=== PATIENT | female | born 2000 | race Caucasian/White ===

== ENCOUNTER 2020-03-28 16:21 | Emergency (ER) | payer BC, SELFPAY ==
[2018-04-10 16:15] VITALS: BMI 26.7
[2020-03-28 16:23] VITALS: BP 142/82; PULSE 118; RESP 18; TEMP 35.8; O2SAT 99; BMI 31.1
--- NOTE | 2020-03-28 17:22 | ED.VIS.HA ---
History of Present Illness Chief Complaint: Headache Informant: Patient Onset: Days - 2 Context: Gradual Timing: Continuous Quality: Similar Prior Headaches Location: bifrontal Current Severity: Moderate Maximum Severity: Moderate Worsened by: light Relieved by: nothing. tried ibuprofen and Zoloft. Associated Symptoms: Nausea, Vomiting - once yesterday, Blurred Vision, Photophobia. Negative for: Fever, Sore Throat, Sinus Pressure, Numbness, Tingling, Visual Changes, Visual Loss Injury: - - none Narrative: Patient states has history of migraines, she does not get them very frequently but this is a particularly bad one that usually go away with [id number] medications but this 1 has not. She states she is prescribed Zoloft for anxiety. However she is using it inappropriately, using it to abort when she has anxiety. She states she used it last night and she became nauseated and had some blurred vision at one point and is suspicious it was due to the Zoloft but she was having this migraine during it. She is also on typical combination control pills. She denies any recent injury or illness. Prior similar symptoms: Yes - Past Medical History (1) Anxiety Status: Chronic (2) GERD (gastroesophageal reflux disease) Status: Chronic (3) Migraines Status: Chronic Past Medical History - Allergies and Home Meds Allergies/Adverse Reactions: Allergies amoxicillin Adverse Reaction (Verified 04/10/18 16:16) Unknown Penicillins Adverse Reaction (Verified 04/10/18 16:16) Unknown Primary Care Physician: Blaine Aguilar MD [Primary Care Provider] - Smoking Status: Never smoker Review of Systems General: Denies: Chills, Fever, Sweats Eyes: Reports: Blurred Vision - bilaterally - Intermittently. Denies: Visual changes - bilaterally, Diplopia ENT: Reports: - - No sinus congestion/pressure. Denies: Bilateral ear pain, Rhinorrhea, Sore throat Cardiovascular: Denies: Chest pain, Palpitations Respiratory: Denies: Dyspnea, Cough, Dyspnea on exertion Gastrointestinal: Reports: Nausea, Vomiting. Denies: Abdominal pain, Diarrhea, Melena, Hematochezia Genitourinary: Denies: Dysuria, Hematuria, Frequency Musculoskeletal: Denies: Back pain, Extremity Pain Skin: Denies: Rash, Wounds Neurological: Reports: Headache. Denies: Weakness, Numbness Physical Exam Vital Signs/Narrative: Vital Signs Temp Pulse Resp BP Pulse Ox 03/28/20 16:23 96.4 F L 118 H 18 142/82 H 99 Inital Vital Signs reviewed: Yes General: Well nourished, Well developed, - - Well-appearing, no distress Head: NC, AT. Negative for: Temporary Artery Tenderness Eyes: Perrl, EOMI - Minimal photophobia ENT: Moist mucous membranes, No rhinorrhea. Negative for: Nasal congestion, Sinus tenderness Neck: Supple, No Lymphadenopathy, No Meningismus Respiratory: No distress Skin: Normal color, No rash, No Trauma Neuro: Alert, Oriented x3, Cranial nerves II-XII grossly intact, Normal Strength, Normal Sensation, Normal DTR, Normal Gait. Negative for: Romberg Psychological: Normal affect, Normal Mood Diagnostic/Tx/Re-eval - Medical Decision Making Patient was treated with Toradol and Reglan and had significant improvement. We discussed the correct way to use Zoloft for anxiety, which is taking it daily. She was concerned she was having side effects from it. I reassured her these were more likely related to her migraine and less likely the medication. I recommend that she wait until she is completely free of this headache and other symptoms, and then start taking the medication daily, to ensure that she tolerates it, and she should follow-up with the doctor who prescribes it. ED Disposition - Plan for ED Patient: Disposition: Home or Assisted Living Diagnosis: Migraine headache Instructions: ED, Migraine (Classical) Referrals: Blaine Aguilar MD [Primary Care Provider] - As Needed
[2020-03-28] MEDS: Metoclopramide 10 MG/2 ML Vial IM (17:26)
[2020-03-28] MEDS: Ketorolac 60 MG/2 ML Vial IM (17:26)
[2020-03-28 18:17] VITALS: BP 139/89; PULSE 86; RESP 16; O2SAT 99
== END 2020-03-28 18:18 | disposition home or self-care (01) ==
PROVIDERS: Emergency Provider Emergency Medicine; PCP Pediatrics
DX: G43.909 Migraine, unspecified, not intractable, without status migrainosus (principal); F41.9 Anxiety disorder, unspecified
CPT/HCPCS: 96372; 99282

== ENCOUNTER 2020-11-21 10:09 | Emergency (ER) | payer OTHER, SELFPAY ==
[2020-11-21 10:10] VITALS: BP 103/72; PULSE 111; RESP 18; TEMP 36.3; O2SAT 96; BMI 29.4
--- NOTE | 2020-11-21 10:21 | EKG12_ITS ---
Test Reason : SOB Blood Pressure : / mmHG Vent. Rate : 089 BPM Atrial Rate : 089 BPM P-R Int : 122 ms QRS Dur : 074 ms QT Int : 340 ms P-R-T Axes : 050 056 033 degrees QTc Int : 413 ms Normal sinus rhythm Normal ECG Confirmed by HANK FIGUEREDO, ALEX ([id number]), publication editor LIZA RICHARDS ([id number]) on 11/26/2020 12:57:42 PM Referred By: Confirmed By:ALEX MCKINNEY MD
--- NOTE | 2020-11-21 10:22 | ED.VIS.DYS ---
HPI History of Present Illness Chief Complaint: Cold Sx Informant: patient Narrative Narrative: 19-year-old female presents to the emergency department stating that she does not feel well. Patient states that 2 days ago she woke up with fever. She developed rhinorrhea and cough. Cough is productive of a greenish colored sputum. She notes no vomiting or diarrhea, no earache. She does note a mild sore throat. She notes generalized body aches. She is not vaccinated against Covid. Patient states that today she tried to get up to go to work but felt like she may pass out. PFSH PFS Medical History Seasonal allergies Severe headache Shortness of breath Home Medications NK 11/21/20 [History Last Taken Unknown] Allergy/AdvReac Type Severity Reaction Status Date / Time amoxicillin AdvReac Unknown Verified 11/21/20 10:10 Penicillins AdvReac Unknown Verified 11/21/20 10:10 Social History Smoking Status: Current some day smoker tobacco type: e-cigarettes alcohol intake: never ROS ROS ED Constitutional Constitutional ED: Reports chills and fever(s); Denies weight loss Eyes Eyes: Denies change in vision or diplopia ENT ENT ED: Reports rhinorrhea and sore throat; Denies ear pain Cardiovascular Cardiovascular: Denies chest pain, orthopnea, palpitations or racing heartbeat Respiratory/Chest Respiratory/Chest: Reports cough, dyspnea, dyspnea on exertion and sputum; Denies orthopnea Gastrointestinal Gastrointestinal: Denies abdominal pain, diarrhea, nausea or vomiting Genitourinary Genitourinary ED: Denies dysuria, hematuria or urinary frequency Musculoskeletal Musculoskeletal: Reports myalgias; Denies arthralgias Integumentary Denies abscess or rash Neurologic Neurologic: Reports headache(s); Denies weakness Psychiatric Psychiatric: Denies anxiety, depression, suicidal ideation or suicidal thoughts Endocrine Endocrinology: Denies polydipsia, polyphagia or polyuria Allergic/Immunologic Allergic/Immunologic ED: Denies mouth swelling, tongue swelling or urticaria EXAM Physical Exam Const Vital Signs: 11/21/20 10:10 11/21/20 10:40 Temperature 97.3 F L Temperature Source Temporal Pulse Rate 111 H Respiratory Rate 18 Respiratory Effort Normal Non-Labored Respiratory Depth Normal Respiratory Pattern Normal Blood Pressure 103/72 Blood Pressure Mean 82 Pulse Ox 96 Oxygen Delivery Method Room Air Positive well nourished and well developed General Appearance ED: well developed HEENT Reports normocephalic, head/scalp atraumatic and moist mucous membranes Eyes PERRL and EOMs intact bilaterally Neck no lymphadenopathy, supple and no JVD Resp normal respiratory effort and clear to auscultation bilaterally Cardio regular rhythm and no murmurs Rate: tachycardic GI normal to inspection, nondistended, normoactive bowel sounds and non-tender Palpation: soft Back/Spine no CVA tenderness and normal ROM Extremity normal to inspection General Extremety ED: Negative for edema General Extremity: Negative for edema Neuro oriented x3 and CN's II-XII intact bilaterally Sensorium / Orientation: alert Motor Exam: strength 5/5 throughout Psych mental status grossly normal Mood & Affect: Negative for depressed or tearful Skin no rashes or lesions noted and no wounds MDM MDM MDM Narrative Medical decision making narrative: Patient's COVID-19 is positive. White count 6.8. Patient does not wish a chest x-ray because she states that she had one at urgent care and was told that it was normal. At this point patient's not hypoxic. I think she can be discharged home with supportive care. Lab Data Attestation: I reviewed the patient's lab results. Labs: Laboratory Results - last 24 hr 11/21/20 11/21/20 11/21/20 10:30 10:30 10:30 WBC 6.8 RBC 5.06 Hgb 14.7 Hct 45.6 MCV 90.1 MCH 29.1 MCHC 32.2 RDW Std Deviation 39.8 RDW Coeff of Pauline 12.1 Plt Count 244 MPV 9.8 Immature Gran % (Auto) 0.600 Neut % (Auto) 74.7 H Lymph % (Auto) 14.3 L Ballard % (Auto) 9.6 Eos % (Auto) 0.4 Baso % (Auto) 0.4 Absolute Neuts (auto) 5.1 Absolute Lymphs (auto) 0.98 Nucleated RBC % 0 Sodium 137 Potassium 4.1 Chloride 103 Carbon Dioxide 29.0 Anion Gap 5 BUN 9 Creatinine 0.68 Estim Creat Clear Calc 136.77 Est GFR (MDRD) Af Amer 139 Est GFR (MDRD) Non-Af 115 BUN/Creatinine Ratio 13.3 Glucose 104 Calcium 8.5 Total Bilirubin 0.30 AST 11 L ALT 20 Alkaline Phosphatase 69 Total Protein 7.5 Albumin 4.0 Globulin 3.5 Albumin/Globulin Ratio 1.1 Serum , Qual NEGATIVE EKG Initial EKG: Attestation: I personally reviewed and interpreted this EKG as follows: Comments: EKG is a normal sinus rhythm at a rate of 89 bpm. No concerning features of ACS or ectopy noted Discharge Plan Triage Chief Complaint: Cold Sx ED Provider: Marco Mercado Dx/Rx/DC Orders Clinical Impression: COVID-19, Acute dyspnea Instructions: Coronavirus Disease 2019 (COVID-19): Caring for Yourself or Others Prescriptions: No Action NK RF: 0 Primary Care Provider: Humza Hurd Referrals: Humza Hurd DO [Primary Care Provider] - As Needed Disposition Disposition: Home, Self Care
[2020-11-21] MEDS: Ketorolac 30 MG/ML Syringe IV (10:33)
[2020-11-21] MEDS: 0.9% Normal Saline 1,000 ML 1000 ML IV (10:33)
[2020-11-21 10:49] LABS: Absolute Lymphocyte Count 0.98 X10^3/uL (0.83-4.51); Absolute Neutrophil Count 5.1 X10^3/uL (2.0-7.7); Basophil# 0.03 X10^3/uL; Basophil% 0.4 % (0-1); Eosinophil# 0.03 X10^3/uL; Eosinophils% 0.4 % (0-5); Hematocrit 45.6 % (37-47); Hemoglobin 14.7 g/dL (12.0-15.0); Lymphocyte # 0.98 X10^3/ul (0.83-4.51); Lymphocyte % 14.3 % (19-41); Mean Corp Hgb Conc 32.2 g/dL (32-36); Mean Corpuscular Hgb 29.1 pg (27.0-32.0); Mean Corpuscular Volume 90.1 fL (81-99); Mean Platelet Vol. 9.8 fl (6.2-12.0); Monocyte# 0.66 X10^3/uL; Monocyte% 9.6 % (0-10); NRBC Flagged by Analyzer 0 % (0-5); Neutrophil % 74.7 % (47-70); Platelet Count 244 K/mm3 (150-450); RBC Distribution Width CV 12.1 % (11.6-14.6); RBC Distribution Width SD 39.8 fl (35.1-43.9); Red Blood Count 5.06 M/mm3 (4.2-5.4); White Blood Count 6.8 K/mm3 (4.4-11.0)
[2020-11-21 11:01] LABS: ALB/GLOB Ratio 1.1 RATIO (0.9-2.4); AST(SGOT) 11 U/L (15-37); Alanine Aminotransfer ALT/SGPT 20 U/L (13-56); Alkaline Phosphatase 69 U/L (45-117); Anion Gap 5 (5-15); BUN 9 mg/dL (7-18); BUN/Creat Ratio 13.3 RATIO (10-20); Calcium,Total 8.5 mg/dL (8.5-10.1); Chloride 103 mmol/L (98-107); Creatinine, Serum 0.68 mg/dL (0.55-1.02); EST Glomerular Filtration Rate 115 mL/min (>60); Est Glom Filt Rate - Afr Amer 139 mL/min (>60); Estimated Creatinine Clearance 136.77 ml/min; Globulin 3.5 g/dL (2.2-4.2); Glucose 104 mg/dL (74-106); Potassium 4.1 mmol/L (3.5-5.1); Protein, Total 7.5 g/dL (6.4-8.2); Sodium Level 137 mmol/L (136-145)
[2020-11-21 11:06] LABS: Internal QC Validated? YES +Cl - CLEAR BKGD; Pregnancy, Serum, hCG Quali. NEGATIVE Negative
== END 2020-11-21 11:28 | disposition home or self-care (01) ==
PROVIDERS: Emergency Provider Emergency Medicine; PCP Student in an Organized Health Care Education/Training Program
DX: U07.1 COVID-19 (principal); R06.00 Dyspnea, unspecified
CPT/HCPCS: 80053; 84703; 85025; 87426; 87804; 93005; 96374; 99284; J7030

== ENCOUNTER → 2020-12-27 13:55 | Outpatient (CLI) | payer OTHER, SELFPAY ==
[2020-12-27 15:20] LABS: Internal QC Validated? YES +Cl - CLEAR BKGD; Monotest Negative (Negative)
[2020-12-30 14:09] LABS: B. henselae IgG Negative titer (Neg:<1:320); B. henselae IgM Negative titer (Neg:<1:100); B. quintana IgG Negative titer (Neg:<1:320)
[2020-12-30 14:23] LABS: B. quintana IgM Negative titer (Neg:<1:100)
== END ==
PROVIDERS: PCP Student in an Organized Health Care Education/Training Program; Visit Provider Nurse Practitioner Family
DX: R59.0 Localized enlarged lymph nodes (principal)
CPT/HCPCS: 36415; 86308; 86611

== ENCOUNTER 2024-11-14 04:33 | Emergency (ER) | payer OTHER, SELFPAY ==
[2024-11-14 04:34] VITALS: BP 123/70; PULSE 97; RESP 16; TEMP 36.9; O2SAT 98; BMI 28.8
--- NOTE | 2024-11-14 04:52 | EX.ED.DYSGE1 ---
HPI History of Present Illness Chief Complaint: General Illness Informant: patient Narrative Narrative: Patient is a 23-year-old female who reports no clinically significant past medical history. She states that roughly 2 weeks ago she had bouts of loose stool/diarrhea and was diagnosed with a stomach virus. She states the symptoms lasted for 5 to 7 days and then resolved. She states ever since then however she has been having generalized fatigue/malaise. She states there has been no fever and that she been able to eat and drink normally. However she is concerned that she never recovered from the viral stomach infection and has been dehydrated as the main cause of her symptoms. Secondary to that she presents for evaluation [facility] Medical History Seasonal allergies Severe headache Shortness of breath Home Medications Medication Instructions Recorded Last Taken Type NK 11/21/20 Unknown History Allergy/AdvReac Type Severity Reaction Status Date / Time amoxicillin AdvReac Unknown Verified 11/14/24 04:34 Penicillins AdvReac Unknown Verified 11/14/24 04:34 Family History no significant family his Social History Smoking Status: Current every day smoker tobacco type: e-cigarettes alcohol intake: never ROS ROS ED Constitutional Constitutional ED: Reports other Details: Positive fatigue ; Denies chills or fever(s) ENT ENT ED: Denies rhinorrhea or sore throat Cardiovascular Cardiovascular: Denies chest pain Respiratory/Chest Respiratory/Chest: Denies cough or dyspnea Gastrointestinal Gastrointestinal: Denies abdominal pain, diarrhea, nausea or vomiting Genitourinary Genitourinary ED: Denies dysuria Musculoskeletal Musculoskeletal: Denies myalgias Integumentary Denies rash Neurologic Neurologic: Reports weakness; Denies headache(s) Psychiatric Psychiatric: Reports anxiety; Denies suicidal ideation or suicidal thoughts Hematologic/Lymphatic Hematologic/Lymphatic: Denies easy bleeding or easy bruising EXAM Physical Exam Const Vital Signs: 11/14/24 04:34 11/14/24 04:34 11/14/24 05:45 Temperature 98.4 F 98.4 F Temperature Source Oral Pulse Rate 97 72 Respiratory Rate 16 16 Respiratory Effort Normal Respiratory Pattern Normal Blood Pressure 123/70 H 106/77 Blood Pressure Mean 87 86 Pulse Ox 98 100 Oxygen Delivery Method Room Air Positive well nourished and well developed General Appearance ED: well developed; Negative for pallor HEENT HEENT Narrative: Normocephalic atraumatic No tongue or lip swelling no oral lesions no airway edema or compromise; no secondary findings in the posterior pharynx to suggest infection Mucous membranes are slightly dry and tacky Eyes PERRL and EOMs intact bilaterally General Eye ED: Negative for scleral icterus Neck supple Neck Narrative: No nuchal rigidity or meningeal signs Resp normal respiratory effort and clear to auscultation bilaterally Cardio regular rate and regular rhythm GI normal to inspection, nondistended, normoactive bowel sounds, non-tender, non-distended and no masses GI Narrative: No voluntary guarding no rigidity or pulsatile mass Auscultation: normoactive bowel sounds Palpation: soft Extremity normal to inspection Neuro oriented x3, CN's II-XII intact bilaterally and no sensory deficits noted Sensorium / Orientation: alert Motor Exam: strength 5/5 throughout Psych Mood & Affect: anxious Skin no rashes or lesions noted, no wounds and skin turgor normal General Skin Exam: Negative for jaundice or pallor MDM MDM MDM Narrative Medical decision making narrative: Patient presented to the ER with stable vitals. She had symptoms that could have led to dehydration with her reported viral stomach infection but this was roughly 2 weeks ago and has since reportedly been eating and drinking normally. However she does have a heart rate near the upper limit of normal and her oral mucosa is slightly dry. Therefore in order to check for acute kidney injury versus clinically significant electrolyte abnormality basic blood work was obtained. With the patient also reporting generalized fatigue and weakness a TSH was obtained to check for potential hypothyroidism and a serum hCG for complication. Lab work revealed no clinically significant findings. Patient was given 1 L of IV fluid and on reevaluation has stable vitals and is resting comfortably. Therefore at this time with overall negative workup and improvement of symptoms there is no need for further intervention and she is otherwise safe for discharge. History & Record Review Discussion w/independent historian: Patient Lab Data Attestation: I reviewed the patient's lab results. Labs: Laboratory Results - last 24 hr 11/14/24 04:58 WBC 8.2 RBC 4.49 Hgb 13.4 Hct 39.1 MCV 87.1 MCH 29.8 MCHC 34.3 RDW Std Deviation 34.8 L RDW Coeff of Pauline 11.0 L Plt Count 339 MPV 9.4 Immature Gran % (Auto) 0.400 Neut % (Auto) 53.7 Lymph % (Auto) 36.0 Ralls % (Auto) 8.0 Eos % (Auto) 1.2 Baso % (Auto) 0.7 Absolute Neuts (auto) 4.4 Absolute Lymphs (auto) 2.96 Nucleated RBC % 0 Sodium 140 Potassium 4.0 Chloride 104 Carbon Dioxide 24.9 Anion Gap 11 BUN 13 Creatinine 0.66 L Estim Creat Clear Calc 154.52 Est GFR (MDRD) Non-Af 125 BUN/Creatinine Ratio 19.1 Glucose 94 Calcium 9.0 Magnesium 1.9 TSH 3.640 Serum , Qual NEGATIVE Discharge Plan Triage Chief Complaint: General Illness ED Provider: Steve Zavala Dx/Rx/DC Orders Clinical Impression: Mild dehydration, Fatigue, Anxiety Instructions: ED Dehydration (Adult), ED Weakness Uncertain Cause Prescriptions: No Action NK Primary Care Provider: Care Physician,No Primary Referrals: Humza Hurd, DO [Non-Staff] - Activity Restrictions/Additional Instructions: Your workup today revealed no clinically significant findings. If symptoms of fatigue/weakness persist please follow-up with your family doctor to discuss further outpatient testing or referral to a internet site designer to check for other causes of generalized fatigue. Please keep yourself well-hydrated and return to the ER should you have any further concerns Print Language: Kyrgyz Disposition Disposition: Home, Self Care
[2024-11-14] MEDS: 0.9% Normal Saline (1000mL) 1,000 ML 999 ML IV (04:57)
[2024-11-14 05:06] LABS: Hematocrit 39.1 % (37-47); Hemoglobin 13.4 g/dL (12.0-15.0); Immature Granulocytes Count 0.030 X10^3/uL (0.0-0.0); Mean Corp Hgb Conc 34.3 g/dL (32-36); Mean Corpuscular Volume 87.1 fL (81-99); Mean Platelet Vol. 9.4 fl (6.2-12.0); NRBC Flagged by Analyzer 0 % (0-5); Platelet Count 339 K/mm3 (150-450); RBC Distribution Width CV 11.0 % (11.6-14.6); RBC Distribution Width SD 34.8 fl (35.1-43.9); Red Blood Count 4.49 M/mm3 (4.2-5.4); White Blood Count 8.2 K/mm3 (4.4-11.0)
--- OUTSIDE RECORDS SUMMARY | 2024-11-14 05:09 | XMS RPT_ITS | CCD ---
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 Name Role Phone Sharmila FIGUEREDO, Reynold Velázquez Primary Care Provider [phone] Unavailable Primary Care Provider Unavailbrenna novoa Unavailable Primary Care Provider UnavailBlaine Banks MD Primary Care Provider [phone] EDWARD HUANG Referring Unavailable KATRINA GARCIA Attending Unavailable EDWARD HUANG Referring Unavailable OMAIRA HILLS Attending Unavailable BARBARA WELLS Attending Unavailable FREDA AVALOS Attending Unavailable JUAN RAMON HUANG Attending Unavailable MELISSA AMADOR Attending Unavailable SELF Referring Unavailable MELISSA AMADOR Referring Unavailable MELISSA AMADOR Referring Unavailable MELISSA AMADOR Referring Unavailable JUAN RAMON HUANG Attending Unavailable Allergies Allergy Classification Reported Allergen(s) Allergy Type Date of Onset Reaction(s) Facility (19 sources) Penicillins; Translations: [PENICILLINS] Drug Allergy [facility] Work Phone: (8 sources) ENVIRONMENTAL [Other] Propensity to adverse reactions 5 Other: See Comments [facility] Work Phone: (7 sources) Penicillins Drug Allergy [facility] Work Phone: Medications Current Medications Medication Drug Class(es) Dates Sig (Normalized) Sig (Original) ASHWAGANDHA EXTRACT ORAL (13 sources) ASHWAGANDHA EXTR ACT ORAL Take by mouth. Active azithromycin 250 mg oral tablet (1 source) Macrolide Antimicrobial Start: 03-28-2022 End: 04-02-2022 azithromycin (ZITHROMAX Z-KYLE) 250 mg tablet Indications: Bacterial sinusitis Take 2 tablets day one, then, 1 tablet daily until gone. 6 tablet 0 03/28/2022 04/02/2022 Active Comment on above: Take 2 tablets day o ne, then, 1 tablet daily until gone. cyclobenzaprine hydrochloride 10 mg oral tablet (1 source) Muscle Relaxant Start: 08-06-2024 End: 08-13-2024 take 1 tablet by mouth every twelve hours as needed for pain and pain cyclobenzaprine (FLEXERIL) 10 mg tablet Indications: Pain Take 1 tablet by mouth two times a day as needed for muscle spasm for up to 7 days. 14 tablet 08/06/2024 08/13/2024 Active ferrous sulfate 134 mg oral tablet (8 sources) Ferrous Sulfate 27 mg iron tab Take by mouth. Active fluticasone propionate 0.05 mg/actuat metered dose nasal spray (16 sources) Corticosteroid Start: 07-31-2023 take 2 spray(s) by mouth once daily fluticasone (FLONASE) 50 mcg/actuation nasal spray Use 2 Sprays in each nostril once daily. Rinse mouth after use. 1 Each 07/31/2023 Active Comment on above: Use 2 Sprays in each nostril once daily. Rinse mouth after use. Lactobacillus acidophilus (20 sources) Lactobacillus acidophilus (PROBIOTIC ORAL) Take by mouth. Active Lactobacillus ac idophilus (PROBIOTIC ORAL) Take by mouth. 0 Active Comment on above: Take by mouth. Magnesium (19 sources) MAGNESIUM ORAL T rahul by mouth. Active MAGNESIUM ORAL T rahul by mouth. 0 Active Comment on above: Take by mouth. miSOPROStol 0.1 mg oral tablet (13 sources) Prostaglandin E1 Analog Start: 04-15-20 miSOPROStol (CYTOTEC) 100 mcg tablet Indications: Encounter for IUD insertion Place 2 tabs per vagina the night before and morning of procedure 4 tablet 04/15/2024 Active ondansetron 4 mg disintegrating oral tablet (3 sources) Serotonin-3 Receptor Antagonist Start: 10-29-19 take 1 tablet by mouth every eight hours as needed for nausea ondansetron orally disintegrating (ZOFRAN ODT) 4 mg disintegrating tablet Indications: Nausea and vomiting, unspecified vomiting type Take 1 tablet by mouth every 8 hours as needed for nausea/vomiting. 12 tablet 10/28/2024 Active predniSONE 10 mg oral tablet (1 source) Start: 08-07-19 End: 08-16-19 predniSONE (DELTASONE) 10 mg tablet Indications: Pain Take 4 tabs daily for 3 days, then 2 tabs daily for 3 days, then 1 tab daily for 3 days with food. 21 tablet 08/06/2024 08/15/2024 Active theanine (20 sources) THEANINE ORAL Ta ke by mouth. Active THEANINE ORAL Ta ke by mouth. 0 Active Comment on above: Take by mouth. Completed/Discontinued Medications Medication Drug Class(es) Dates Sig (Normalized) Sig (Original) Amino Acids (5 sources) End: 12-28-2023 amino acids (AMINO ACID ORAL) Take by mouth. 12/28/2023 Discontinued amino acids (AMI NO ACID ORAL) Take by mouth. 0 Active Comment on above: Take by mouth. brompheniramine maleate 0.4 mg/ml / dextromethorphan hydrobromide 2 mg/ml / pseudoephedrine hydrochloride 6 mg/ml oral solution (2 sources) alpha-Adrenergic Agonist, Uncompetitive M-taejuq-I-aspartate Receptor Antagonist, Sigma-1 Agonist Start: 07-31-19 End: 12-28-19 24 take 10 mL by mouth every six hours as needed Brompheniramine-Pse udoeph-DM (BROMFED DM) 2-30-10 mg/5 mL syrup Take 10 mL by mouth four times a day as needed. 200 mL 07/31/2023 12/28/2023 Discontinued Comment on above: Take 10 mL by mouth four times a day as needed. cetirizine hydrochloride 10 mg oral tablet (1 source) Histamine-1 Receptor Antagonist Start: 09-10-19 End: 03-29-20 21 take 1 tablet by mouth once daily cetirizine (ZYRTEC) 10 mg tablet Take 1 tablet by mouth once daily. 20 tablet 09/09/2020 03/29/2021 Discontinued Ethinyl Estradiol / norgestimate (6 sources) Progestin, Estrogen Start: 07-13-19 23 End: 11-30-19 23 take 1 tablet by mouth once daily norgestimate 0.25 mg-ethinyl estradiol 35 mcg (SPRINTEC) 0.25-35 mg-mcg per tablet Take 1 tablet by mouth once daily. 28 tablet 14 07/12/2022 11/29/2022 Discontinued Start: 07-12-2022 take 1 tablet by julia th once daily norgestimate 0.25 mg-ethinyl estradiol 35 mcg (SPRINTEC) 0.25-35 mg-mcg per tablet Take 1 tablet by mouth once daily. 28 tablet 14 07/12/2022 Active Start: 03-05-2020 End: 03-29-2021 take 1 tablet by mouth once daily norgestimate 0.25 mg-ethinyl estradiol 35 mcg (SPRINTEC) 0.25-35 mg-mcg per tablet Take 1 tablet by mouth once daily. 1 Package 14 03/05/2020 03/29/2021 Discontinued Comment on above: Take 1 tablet by julia th once daily. 12 hr guaiFENesin 600 mg extended release oral tablet (1 source) Start: 05-25-19 End: 03-29-20 take 1 tablet by mouth twice daily as needed for cough guaiFENesin (MUCINEX) 600 mg 12 hr tablet Take 1 tablet by mouth twice daily. as needed for cough 20 tablet 05/25/2020 03/29/2021 Discontinued naproxen 500 mg oral tablet (1 source) Nonsteroidal Anti-inflammatory Drug Start: 09-10-19 End: 03-29-20 take 1 tablet by mouth every twelve hours as needed naproxen (NAPROSYN) 500 mg tablet Take 1 tablet by mouth twice daily as needed (pain/inflammation, take with food.). 20 tablet 09/09/2020 03/29/2021 Discontinued nystatin 100 unt/mg topical ointment (5 sources) Polyene Antifungal Start: 11-30-19 End: 12-28-19 nystatin (MYCOSTATIN) ointment Apply to affected area twice daily. 30 g 1 11/29/2022 12/28/2023 Discontinued Comment on above: Apply to affected ar ea twice daily. petrolatum 0.935 mg/mg topical ointment (5 sources) Start: 11-30-19 End: 12-28-19 vitamin A and D ointment Apply to affected area as needed. 11/29/2022 12/28/2023 Discontinued Comment on above: Apply to affected ar ea as needed. triamcinolone acetonide 0.001 mg/mg topical ointment (5 sources) Corticosteroid Start: 11-30-19 End: 09-05-20 24 triamcinolone acetonide (KENALOG) 0.1 % ointment Apply to affected area twice daily. 30 g 2 11/29/2022 12/28/2023 Discontinued Comment on above: Apply to affected ar ea twice daily. Problems Active Problems Problem Classification Problem Date Documented Da te Episodic/Chronic Conditions associated with dizziness or vertigo (2 sources) Lightheadedness; Translations: [Dizziness and giddiness] Onset: 5 11-06-2024 Episodic Fluid and electrolyte disorders (2 sources) Dehydration; Translations: [Dehydration] Onset: 5 11-06-2024 Episodic Genitourinary symptoms and ill-defined conditions (2 sources) Dysuria; Translations: [Dysuria] Episodic Intestinal infection (2 sources) Viral gastroenteritis due to Burnham-like agent; Translations: [Acute gastroenteropathy due to Burnham agent] Onset: 5 11-06-2024 Episodic Menstrual disorders (6 sources) Dysmenorrhea; Translations: [Dysmenorrhea, unspecified] Onset: 4 Chronic Nausea and vomiting (6 sources) Nausea and vomiting; Translations: [Nausea with vomiting, unspecified] Onset: 5 10-28-2024 Episodic Noninfectious gastroenteritis (2 sources) Acute gastroenteritis; Translations: [Noninfective gastroenteritis and colitis, unspecified] Onset: 5 10-28-2024 Episodic Other connective tissue disease (1 source) Pelvic floor tension; Translations: [Other specified disorders of muscle] Episodic Other connective tissue disease (2 sources) Myofascial pain; Translations: [Myalgia, other site] 09-06-2024 Episodic Other connective tissue disease (1 source) Myalgia, other site; Translations: [Myofascial pain] Onset: 5 Episodic Other gastrointestinal disorders (2 sources) Diarrhea, unspecified; Translations: [Nausea vomiting and diarrhea] Onset: 5 Episodic Other skin disorders (1 source) Eruption of vulva; Translations: [Rash and other nonspecific skin eruption] 11-29-2022 Episodic Other skin disorders (1 source) Eruption; Translations: [Rash and other nonspecific skin eruption] 12-22-2022 Episodic Other upper respiratory infections (1 source) Bacterial sinusitis; Translations: [Chronic sinusitis, unspecified] Chronic Other upper respiratory infections (2 sources) Viral upper respiratory tract infection; Translations: [Acute upper respiratory infection, unspecified] 07-31-2023 Episodic Residual codes; unclassified (7 sources) Pain; Translations: [Pain, unspecified] 08-06-2024 Episodic Residual codes; unclassified (2 sources) Other specified health status; Translations: [Other specified conditions influencing health status] Onset: 5 11-06-2024 Episodic Spondylosis; intervertebral disc disorders; other back problems (3 sources) Neck pain; Translations: [Cervicalgia] Onset: 5 09-06-2024 Episodic Past or Other Problems Problem Classification Problem Date Documented Date Episodic/Chronic Abdominal pain (20 sources) Abdominal pain; Translations: [Unspecified abdominal pain] Onset: 02-08-2010 02-08-2010 Episodic Contraceptive and procreative management (2 sources) Contraception status; Translations: [Encounter for other general counseling and advice on contraception] Onset: 12-28-2023 12-28-2023 Episodic Headache; including migraine (20 sources) Headache; Translations: [Headache] Onset: 02-08-2010 02-08-2010 Episodic Immunizations and screening for infectious disease (7 sources) Patient encounter status; Translations: [Encounter for screening for infections with a predominantly sexual mode of transmission] Onset: 12-28-2023 Episodic Other complications of (1 source) with inconclusive viability, not applicable or unspecified; Translations: [, location unknown] Onset: 04-22-2024 Episodic Other female genital disorders (9 sources) Vaginal irritation; Translations: [Other specified noninflammatory disorders of vagina] Onset: 07-19-2024 Resolved: 07-19-2024 07-19-2024 Episodic Results Test Name Value Interpretation Reference Range Bravo Espinoza 11-06-2024 CNOV Office Visit ([facility]) JAMIL RENEE ([id number]) 2000 F Date Time Provider Department 11/06/24 4:45 PM FREDA AVALOS During your visit today, we recorded the following information about you: Temperature Pulse Respiration Blood pressure 98.4 degrees 95/minute 20/minute 100/72 Weight 86.7 kg Freda Avalos APRN.[facility] 11/06/2024 4:39 PM Signed [facility] Lorenzo Jamil Renee is a 23 year old female. Patient presents with: Nausea AND Vomiting: X 1.5 weeks HPI Nausea and Vomiting: - Onset 10 days ago with initial symptoms of emesis, fever, and diaphoresis. - Initially suspected food poisoning; later diagnosed with norovirus. - Unable to retain oral intake; experienced both emesis and diarrhea. - Attempted to rest over the weekend; minimal oral intake. - Returned to work yesterday, experienced lightheadedness and nausea, followed by dry heaving; sent home from work. - Denies significant abdominal pain; reports persistent nausea. - Boyfriend is currently experiencing similar symptoms. PAST MEDICAL HISTORY Diagnosis Date Menarche 10/24/2012 Migraine without aura PMH - PAST MEDICAL HISTORY OF 11/2003 normal color vision Rheumatoid arthritis Rheumatology PAST SURGICAL HISTORY Procedure Laterality Date TONSILLECTOMY AND ADENOIDECTOMY ALLERGIES Penicillins MEDICATIONS Ferrous Sulfate 27 mg iron tab Take by mouth. MAGNESIUM ORAL Take by mouth. Lactobacillus acidophilus (PROBIOTIC ORAL) Take by mouth. THEANINE ORAL Take by mouth. ondansetron orally disintegrating (ZOFRAN ODT) 4 mg disintegrating tablet Take 1 tablet by mouth every 8 hours as needed for nausea/vomiting. (Patient not taking: Reported on 11/06/2024) ASHWAGANDHA EXTRACT ORAL Take by mouth. (Patient not taking: Reported on 07/19/2024) miSOPROStol (CYTOTEC) [address] 2 tabs per vagina the night before and morning of procedure (Patient not taking: Reported on 07/19/2024) fluticasone (FLONASE) 50 mcg/actuation nasal spray Use 2 Sprays in each nostril once daily. Rinse mouth after use. (Patient not taking: Reported on 12/28/2023) FAMILY HISTORY Problem Relation Age of Onset Heart Father irregular heart beat Hypertension Paternal Grandfather Diabetes Paternal Grandfather Hypertension Maternal Grandmother Heart Maternal Grandmother Social History Tobacco Use Smoking status: Some Days Smokeless tobacco: Never Tobacco comments: vaping Vaping Use Vaping status: current everyday user Substances: Nicotine, Flavoring Devices: Disposable Substance Use Topics Alcohol use: Yes Comment: occasional Drug use: No Review of Systems Constitutional: (+) malaise, (+) decreased appetite Ears/Nose/Mouth/Thro at: (-) nasal congestion, (-) rhinorrhea Respiratory: (-) cough Gastrointestinal: (+) nausea, (+) vomiting, (-) abdominal pain Neurological: (+) lightheadedness Objective BP 100/72 Pulse 95 Temp 36.9 ?C (98.4 ?F) Resp 20 Wt 86.7 kg (191 lb 2.2 oz) LMP 06/26/2024 (Approximate) SpO2 95% BMI 28.23 kg/m? Physical Exam Vitals and nursing note reviewed. Exam conducted with a checker present. Constitutional: Appearance: Normal appearance. HENT: Head: Normocephalic and atraumatic. Cardiovascular: Rate and Rhythm: Normal rate and regular rhythm. Pulmonary: Effort: Pulmonary effort is normal. No respiratory distress. Breath sounds: Normal breath sounds. Abdominal: General: Abdomen is flat. Palpations: Abdomen is soft. Skin: Capillary Refill: Capillary refill takes less than 2 seconds. Neurological: General: No focal deficit present. Mental Status: She is alert and oriented to person, place, and time. Psychiatric: Mood and Affect: Mood normal. Behavior: Behavior normal. { 1. Nausea vomiting and diarrhea (R11.2) 2. Failure of outpatient treatment (Z78.9) 3. Lightheadedness (R42) 4. Gastroenteritis due to norovirus (A08.11) 5. Dehydration (E86.0) - Persistent symptoms for 10 days, including nausea, vomiting, diarrhea, and lightheadedness; outpatient treatment with Zofran was ineffective. Patient seen here 10/28/24 Patient seen here 10/30/24 - Suspected dehydration due to prolonged illness and inability to maintain oral intake. - Referred to the emergency room for further evaluation, including laboratory work and potential IV fluid administration. - Discussed concerns about possible renal implications due to dehydration. and Recording using rollApp software for draft documentation of the visit was discussed with the patient/authorized herbicide service sales representative; all questions welcomed and answered. Patient/authorized herbicide service sales representative agreed to proceed MDM Procedures Allergies As of Date: 11/06/2024 Noted Allergy Reaction PENICILLINS 05/31/2010 2 - Rash Date Reviewed: 11/06/2024 Reviewed by: Ivana Gregory MA - Fully Assessed Reason (more content not included)... Normal [facility] CNOVon 10-30-2024 CNOV Office Visit ([facility]) JAMIL RENEE ([id number]) 2000 F Date Time Provider Department 10/30/24 7:15 PM BARBARA WELLS During your visit today, we recorded the following information about you: Temperature Pulse Respiration Blood pressure 97.8 degrees 89/minute 18/minute 110/78 Weight 87.5 kg Barbara Wells, ROSIO.HUMAN RESOURCES BENEFITS MANAGER 10/30/2024 7:34 PM Signed [facility] Subjective HPI HPI Jamil Renee is a 23 year old female who presents today for CC of vomiting, diarrhea, nausea. This started 3 days ago. Has tried otc medication for relief. Symptoms are worsened by nothing. Seen few days ago, has not taken zofran for relief. Tolerating fluids. Last void just before this visit. Denies possibility of being . .Patient presents with: Vomiting: Vomiting and diarrhea x 3 days PAST MEDICAL HISTORY Diagnosis Date Menarche 10/24/2012 Migraine without aura PMH - PAST MEDICAL HISTORY OF 11/2003 normal color vision Rheumatoid arthritis Rheumatology PAST SURGICAL HISTORY Procedure Laterality Date TONSILLECTOMY AND ADENOIDECTOMY ALLERGIES Penicillins MEDICATIONS ondansetron orally disintegrating (ZOFRAN ODT) 4 mg disintegrating tablet Take 1 tablet by mouth every 8 hours as needed for nausea/vomiting. Ferrous Sulfate 27 mg iron tab Take by mouth. MAGNESIUM ORAL Take by mouth. Lactobacillus acidophilus (PROBIOTIC ORAL) Take by mouth. THEANINE ORAL Take by mouth. ASHWAGANDHA EXTRACT ORAL Take by mouth. (Patient not taking: Reported on 07/19/2024) miSOPROStol (CYTOTEC) [address] 2 tabs per vagina the night before and morning of procedure (Patient not taking: Reported on 07/19/2024) fluticasone (FLONASE) 50 mcg/actuation nasal spray Use 2 Sprays in each nostril once daily. Rinse mouth after use. (Patient not taking: Reported on 12/28/2023) FAMILY HISTORY Problem Relation Age of Onset Heart Father irregular heart beat Hypertension Paternal Grandfather Diabetes Paternal Grandfather Hypertension Maternal Grandmother Heart Maternal Grandmother Social History Tobacco Use Smoking status: Some Days Smokeless tobacco: Never Tobacco comments: vaping Vaping Use Vaping status: current everyday user Substances: Nicotine, Flavoring Devices: Disposable Substance Use Topics Alcohol use: Yes Comment: occasional Drug use: No Review of Systems Constitutional: Negative for fever. Gastrointestinal: Positive for diarrhea, nausea and vomiting. Negative for abdominal pain. Objective BP 110/78 Pulse 89 Temp 36.6 ?C (97.8 ?F) (Tympanic) Resp 18 Wt 87.5 kg (192 lb 14.4 oz) LMP 06/26/2024 (Approximate) SpO2 98% BMI 28.49 kg/m? Physical Exam Constitutional: General: She is not in acute distress. Appearance: Normal appearance. She is not toxic-appearing. Cardiovascular: Rate and Rhythm: Normal rate and regular rhythm. Heart sounds: Normal heart sounds. Pulmonary: Effort: Pulmonary effort is normal. Breath sounds: Normal breath sounds. Abdominal: General: Bowel sounds are normal. Palpations: Abdomen is soft. Tenderness: There is generalized abdominal tenderness (achy). There is no right CVA tenderness or left CVA tenderness. Skin: General: Skin is warm and dry. {ASSESSMENT/PLAN: 1. Vomiting and diarrhea - ICD9: 787.03, 787.91, ICD10: R11.10, R19.7 ASSESSMENT/PLAN: -BRAT Diet (Bananas, Rice, Apple Sauce, [place]) -If no better in 3-5 days follow up back in clinic or with primary care provider -Follow up in the ER with signs of dehydration, increasing abdominal pain, high fever, or blood in vomit or stool. Barbara Wells APRN.HUMAN RESOURCES BENEFITS MANAGER History and Record Review External record(s) reviewed: prior outpatient record. Disposition The patient was discharged. Procedures Allergies As of Date: 10/30/2024 Noted Allergy Reaction PENICILLINS 05/31/2010 2 - Rash Date Reviewed: 10/30/2024 Reviewed by: Lucy Davis LPN - Fully Assessed Reason for Visit: Vomiting [120] Cmt: Vomiting and diarrhea x 3 days Primary Visit Diagnosis:Vomiting and diarrhea [R11.10, R19.7] Prescriptions as of 10/30/2024 - ondansetron orally disintegrating (ZOFRAN ODT) 4 mg disintegrating tablet Take 1 tablet by mouth every 8 hours as needed for nausea/vomiting. - Ferrous Sulfate 27 mg iron tab Take by mouth. - ASHWAGANDHA EXTRACT ORAL Take by mouth. - miSOPROStol (CYTOTEC) [address] 2 tabs per vagina the night before and morning of procedure - fluticasone (FLONASE) 50 mcg/actuation nasal spray Use 2 Sprays in each nostril once daily. Rinse mouth after use. - MAGNESIUM ORAL Take by mouth. - Lactobacillus acidophilus (PROBIOTIC ORAL) Take by mouth. - THEANINE ORAL Take by mouth. Problem List As Of Date 10/30/2024 Noted Resolved Headache [R51] 02/08/2010 Abdominal pain [R10.9] 02/08/2010 Vaginal irritation [N89.8] 07/19/ (more content not included)... Normal [facility] CNOVon 10-28-2024 CNOV Office Visit ([facility]) JAMIL RENEE ([id number]) 2000 F Date Time Provider Department 10/28/24 7:15 PM OMAIRA HILLS [facility] During your visit today, we recorded the following information about you: Temperature Pulse Respiration Blood pressure 97.7 degrees 93/minute 18/minute 104/80 Weight 89.4 kg Omaira Hills APRN.[facility] 10/28/2024 7:34 PM Signed [facility] Subjective Jamil Renee is a 23 year old female. Patient presents with: Vomiting: Fever, chills Vomiting Vomiting and Diarrhea: - Onset after eating at a [place] restaurant out of town; suspects food poisoning. - Vomited 4-5 times today; last episode around 1600. - Uncertain if fluids are being retained; drinks fluids but vomits after napping. - Denies taking any medication today. - Denies immediate emesis after drinking fluids. - No one else who ate with her has reported illness. - Denies abdominal pain; reports mild tenderness and gassiness. - Denies dysuria or urinary frequency. Fever and Chills: - Fever reached 101 degreeF. - Reports chills. Review of Systems Gastrointestinal: Positive for vomiting. Constitutional: (+) fever, (+) chills Gastrointestinal: (+) vomiting, (+) diarrhea, (+) abdominal tenderness Genitourinary: (-) dysuria, (-) urinary frequency Musculoskeletal: (+) back pain-chronic per patient Objective BP 104/80 Pulse 93 Temp 36.5 ?C (97.7 ?F) Resp 18 Wt 89.4 kg (197 lb 1.5 oz) LMP 06/26/2024 (Approximate) SpO2 98% BMI 29.11 kg/m? PAST MEDICAL HISTORY Diagnosis Date - Menarche 10/24/2012 - Migraine without aura - PMH - PAST MEDICAL HISTORY OF 11/2003 normal color vision - Rheumatoid arthritis Rheumatology PAST SURGICAL HISTORY Procedure Laterality Date - TONSILLECTOMY AND ADENOIDECTOMY ALLERGIES Penicillins MEDICATIONS - Ferrous Sulfate 27 mg iron tab Take by mouth. - MAGNESIUM ORAL Take by mouth. - Lactobacillus acidophilus (PROBIOTIC ORAL) Take by mouth. - THEANINE ORAL Take by mouth. - ondansetron orally disintegrating (ZOFRAN ODT) 4 mg disintegrating tablet Take 1 tablet by mouth every 8 hours as needed for nausea/vomiting. - ASHWAGANDHA EXTRACT ORAL Take by mouth. (Patient not taking: Reported on 07/19/2024) - miSOPROStol (CYTOTEC) [address] 2 tabs per vagina the night before and morning of procedure (Patient not taking: Reported on 07/19/2024) - fluticasone (FLONASE) 50 mcg/actuation nasal spray Use 2 Sprays in each nostril once daily. Rinse mouth after use. (Patient not taking: Reported on 12/28/2023) FAMILY HISTORY Problem Relation Age of Onset - Heart Father irregular heart beat - Hypertension Paternal Grandfather - Diabetes Paternal Grandfather - Hypertension Maternal Grandmother - Heart Maternal Grandmother Social History Tobacco Use - Smoking status: Some Days - Smokeless tobacco: Never - Tobacco comments: vaping Vaping Use - Vaping status: current everyday user - Substances: Nicotine, Flavoring - Devices: Disposable Substance Use Topics - Alcohol use: Yes Comment: occasional - Drug use: No Physical Exam Vitals and nursing note reviewed. Constitutional: General: She is not in acute distress. Appearance: Normal appearance. She is not ill-appearing. Cardiovascular: Rate and Rhythm: Normal rate and regular rhythm. Heart sounds: Normal heart sounds. Pulmonary: Effort: Pulmonary effort is normal. No respiratory distress. Breath sounds: Normal breath sounds. No wheezing or rales. Abdominal: General: Bowel sounds are normal. There is no distension. Palpations: Abdomen is soft. There is no mass. Tenderness: There is abdominal tenderness in the epigastric area. There is no guarding. Neurological: Mental Status: She is alert. {1. Nausea and vomiting, unspecified vomiting type (R11.2)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 illness or injury Data: Unique test(s) ordered: 3+ Risk: Low: Low risk from testing/treatment Medical Decision Making Level: 3 - Low MD Gume Tom Karmon, MD 07/19/2024 4:27 PM Written Allergies As of Date: 07/19/2024 Noted Allergy Reaction PENICILLINS 05/31/2010 2 - Rash Date Reviewed: 07/19/2024 Reviewed by: Juan Ramon Huang MD - Fully Assessed Reason for Visit: Problem Visit [Other] Primary Visit Diagnosis:Screen for STD (sexually transmitted disease) [Z11.3] Other Visit Diagnosis:Vaginal irritation [N89.8] Order(s):GONORRHEA/C HLAMYDIA NAAT [SQGCCT] Order #: [id number] ANDREW/TRICHOMONAS NAAT [SQCVTV] Order #: [id number] BACTERIAL VAGINOSIS NAAT [SQBVAMP] Order #: [id number] Prescriptions as of 07/19/2024 - Ferrous Sulfate 27 mg iron tab Take by mouth. - ASHWAGANDHA EXTRACT ORAL Take by mouth. - miSOPROStol (CYTOTEC) [address] 2 tabs per vagina the night before and morning of procedure - fluticasone (FLONASE) 50 mcg/actuation nasal spray Use 2 Sprays in each nostril once daily. Rinse mouth after use. - MAGNESIUM ORAL Take by mouth. - Lactobacillus acidophilus (PROBIOTIC ORAL) Take by mouth. - THEANINE ORAL Take by mouth. Problem List As Of Date 07/19/2024 Noted Resolved Headache [R51] (more content not included)... Normal [facility] B-HCG SerPl-aCncon 5 HCG.beta subunit Qn 1.9 m[IU]/mL Normal <5.0 [facility] Comment on above: Order Comment: Speci men Type: BLOOD SPECIMENOrdering Facility: [facility] Address: [address] [place] [address] Result Comment: Jeanmarie ortiz Performed By: #### 2 1198-7 ####[facility] LABCLIA [id number] [place] [address] [place] Maikel 04-30-2024 CNPN Telephone (OBGYWM) JAMIL RENEE ([id number]) 2000 F Date Time Provider Department 04/30/24 MELISSA AMADOR During your visit today, we recorded the following information about you: Meg Wallace RN 04/30/2024 8:34 AM Signed PSS received message from patient requesting repeat hcg levels to make sure it's in negative range before proceeding with IUD insertion. Order pending if okay. Please advise. hCG Quantitative, Blood (mIU/mL) Date Value 04/22/2024 15.6 04/15/2024 30.8 ARIEL Owen Jennifer, MD 04/30/2024 8:44 AM Signed Ok. Order filed Meg Wallace RN 04/30/2024 9:05 AM Signed Patient notified. Meg Wallace RN Allergies As of Date: 04/30/2024 Noted Allergy Reaction PENICILLINS 05/31/2010 2 - Rash Date Reviewed: 04/15/2024 Reviewed by: Melissa Amador MD - Fully Assessed Reason for Visit: Patient Request [7556] Cmt: Primary Visit Diagnosis:Irregular menses [N92.6] Order(s):HCG QUANTITATIVE [SQHCGQT] Order #: [id number] FUTURE Prescriptions as of 04/30/2024 - ASHWAGANDHA EXTRACT ORAL Take by mouth. - miSOPROStol (CYTOTEC) [address] 2 tabs per vagina the night before and morning of procedure - fluticasone (FLONASE) 50 mcg/actuation nasal spray Use 2 Sprays in each nostril once daily. Rinse mouth after use. - MAGNESIUM ORAL Take by mouth. - Lactobacillus acidophilus (PROBIOTIC ORAL) Take by mouth. - THEANINE ORAL Take by mouth. Problem List As Of Date 04/30/2024 Noted Resolved Headache [R51] 02/08/2010 Abdominal pain [R10.9] 02/08/2010 Encounter Status:Closed by MEG WALLACE on 04/30/24 Normal [facility] B-HCG SerPl-aCncon HCG.beta subunit Qn 15.6 m[IU]/mL High <5.0 Cl [facility] Comment on above: Order Comment: Speci men Type: BLOOD SPECIMENOrdering Facility: [facility] Address: [address] [place] [address] Result Comment: HCG values 5 to 16 mU/mL may represent benign, pituitary derived HCG in non- women over 40 years of age. QUANTITATIVE HCG NORMAL RANGES Weeks of Gestation (Weeks Since LMP) 3 Weeks (5.8-71.2 mIU/mL) 4 Weeks (9.5-750 mIU/mL) 5 Weeks (217-7138 mIU/mL) 6 Weeks (158-76535 mIU/mL) 7 Weeks (3697-405742 mIU/mL) 8 Weeks (27438-384458 mIU/mL) 9 Weeks (40908-197828 mIU/mL) 10 Weeks (48050-058372 mIU/mL) 12 Weeks (01110-845005 mIU/mL) Referenced to 4th IS of [facility] Performed By: #### 2 1198-7 ####[facility] LABCLIA [id number] [place] [address] [place] CBC W Auto Differential pane l (Bld)on 04-22-2024 Basophils (Bld) [#/Vol] 0.08 10*3/uL Normal <0.11 [facility] Comment on above: Order Comment: Speci men Type: BLOOD SPECIMENOrdering Facility: [facility] Address: [address] [place] [address] Performed By: #### 5 7021-8 ####[facility] [id number] [place] [address] [place] Basophils/100 WBC (Bld) 0.7 % Normal [facility] Comment on above: Order Comment: Speci men Type: BLOOD SPECIMENOrdering Facility: [facility] Address: [address] [place] [address] Performed By: #### 5 7021-8 ####[facility] MILLWNCLIA [id number] [place] [address] [place] Differential cell count method Nom (Bld) Auto Normal [facility] Comment on above: Order Comment: Speci men Type: BLOOD SPECIMENOrdering Facility: [facility] Address: [address] [place] [address] Performed By: #### 5 7021-8 ####[facility]ITALKATHYLIA [id number] [place] [address] [place] Eosinophils (Bld) [#/Vol] 0.14 10*3/uL Normal <0.46 [facility] Comment on above: Order Comment: Speci men Type: BLOOD SPECIMENOrdering Facility: [facility] Address: [address] [place] [address] Performed By: #### 5 7021-8 ####[facility] [id number] [place] [address] [place] Eosinophils/100 WBC (Bld) 1.3 % Normal [facility] Comment on above: Order Comment: Speci men Type: BLOOD SPECIMENOrdering Facility: [facility] Address: [address] [place] [address] Performed By: #### 5 7021-8 ####[facility]ALKATHYLIA [id number] [place] [address] [place] Erythrocyte distribution width (RBC) [Ratio] 11.2 % Low 11.5-15.0 [facility] Comment on above: Order Comment: Speci men Type: BLOOD SPECIMENOrdering Facility: [facility] Address: [address] [place] [address] Performed By: #### 5 7021-8 ####[facility]ITALNCLIA [id number] [place] [address] [place] Hematocrit (Bld) [Volume fraction] 40.2 % Normal 36.0-46.0 [facility] Comment on above: Order Comment: Speci men Type: BLOOD SPECIMENOrdering Facility: [facility] Address: [address] [place] [address] Performed By: #### 5 7021-8 ####[facility] [id number] [place] [address] [place] Hemoglobin (Bld) [Mass/Vol] 13.6 g/dL Normal 11.5-15.5 [facility] Comment on above: Order Comment: Speci men Type: BLOOD SPECIMENOrdering Facility: [facility] Address: [address] [place] [address] Performed By: #### 5 7021-8 ####[facility] [id number] [place] [address] [place] Immature granulocytes (Bld) [#/Vol] 0.03 10*3/uL Normal <0.10 [facility] Comment on above: Order Comment: Speci men Type: BLOOD SPECIMENOrdering Facility: [facility] Address: [address] [place] [address] Performed By: #### 5 7021-8 ####[facility]ITALNCLIA [id number] [place] [address] [place] Immature granulocytes/100 WBC (Bld) 0.3 % Normal [facility] Comment on above: Order Comment: Speci men Type: BLOOD SPECIMENOrdering Facility: [facility] Address: [address] [place] [address] Performed By: #### 5 7021-8 ####[facility] [id number] [place] [address] [place] Lymphocytes (Bld) [#/Vol] 2.78 10*3/uL Normal 1.00-4.00 [facility] Comment on above: Order Comment: Speci men Type: BLOOD SPECIMENOrdering Facility: [facility] Address: [address] [place] [address] Performed By: #### 5 7021-8 ####[facility] MINIANGELIA [id number] [place] [address] [place] Lymphocytes/100 WBC (Bld) 25.9 % Normal [facility] Comment on above: Order Comment: Speci men Type: BLOOD SPECIMENOrdering Facility: [facility] Address: [address] [place] [address] Performed By: #### 5 7021-8 ####[facility] HOSPITALNCCJ [id number] [place] [address] [place] MCH (RBC) [Entitic mass] 29.7 pg Normal 26.0-34.0 [facility] Comment on above: Order Comment: Speci men Type: BLOOD SPECIMENOrdering Facility: [facility] Address: [address] [place] [address] Performed By: #### 5 7021-8 ####[facility] HOSPITALNCSebastian [id number] [place] [address] [place] MCHC (RBC) [Mass/Vol] 33.8 g/dL Normal 30.5-36.0 [facility] Comment on above: Order Comment: Speci men Type: BLOOD SPECIMENOrdering Facility: [facility] Address: [address] [place] [address] Performed By: #### 5 7021-8 ####[facility]ITALNCLIA [id number] [place] [address] [place] MCV (RBC) [Entitic vol] 87.8 fL Normal 80.0-100.0 [facility] Comment on above: Order Comment: Speci men Type: BLOOD SPECIMENOrdering Facility: [facility] Address: [address] [place] [address] Performed By: #### 5 7021-8 ####[facility] MILLWNCLIA [id number] [place] [address] [place] Monocytes (Bld) [#/Vol] 0.72 10*3/uL Normal <0.87 [facility] Comment on above: Order Comment: Speci men Type: BLOOD SPECIMENOrdering Facility: [facility] Address: [address] [place] [address] Performed By: #### 5 7021-8 ####[facility]ITALLIA [id number] [place] [address] [place] Monocytes/100 WBC (Bld) 6.7 % Normal [facility] Comment on above: Order Comment: Speci men Type: BLOOD SPECIMENOrdering Facility: [facility] Address: [address] [place] [address] Performed By: #### 5 7021-8 ####[facility] [id number] [place] [address] [place] Neutrophils (Bld) [#/Vol] 7.00 10*3/uL Normal 1.45-7.50 [facility] Comment on above: Order Comment: Speci men Type: BLOOD SPECIMENOrdering Facility: [facility] Address: [address] [place] [address] Performed By: #### 5 7021-8 ####[facility]ITALLIA [id number] [place] [address] [place] Neutrophils/100 WBC (Bld) 65.1 % Normal [facility] Comment on above: Order Comment: Speci men Type: BLOOD SPECIMENOrdering Facility: [facility] Address: [address] [place] [address] Performed By: #### 5 7021-8 ####[facility]ITALNCLIA [id number] [place] [address] [place] Nucleated RBC (Bld) [#/Vol] 10*3/uL Normal <0.01 [facility] Comment on above: Order Comment: Speci men Type: BLOOD SPECIMENOrdering Facility: [facility] Address: [address] [place] [address] Performed By: #### 5 7021-8 ####[facility] [id number] [place] [address] [place] Nucleated RBC/100 WBC (Bld) [Ratio] 0.0 /100 WBC Normal [facility] Comment on above: Order Comment: Speci men Type: BLOOD SPECIMENOrdering Facility: [facility] Address: [address] [place] [address] Performed By: #### 5 7021-8 ####[facility] [id number] [place] [address] [place] Platelet mean volume (Bld) [Entitic vol] 9.7 fL Normal 9.0-12.7 [facility] Comment on above: Order Comment: Speci men Type: BLOOD SPECIMENOrdering Facility: [facility] Address: [address] [place] [address] Performed By: #### 5 7021-8 ####[facility] [id number] [place] [address] [place] Platelets (Bld) [#/Vol] 328 10*3/uL Normal 150-400 [facility] Comment on above: Order Comment: Speci men Type: BLOOD SPECIMENOrdering Facility: [facility] Address: [address] [place] [address] Performed By: #### 5 7021-8 ####[facility] [id number] [place] [address] [place] RBC (Bld) [#/Vol] 4.58 10*6/uL Normal 3.90-5.20 [facility] Comment on above: Order Comment: Speci men Type: BLOOD SPECIMENOrdering Facility: [facility] Address: [address] [place] [address] Performed By: #### 5 7021-8 ####[facility] H[facility]ITALWNCLIA [id number] [place] [address] [place] WBC (Bld) [#/Vol] 10.75 10*3/uL Normal 3.70-11.00 [facility] Comment on above: Order Comment: Speci men Type: BLOOD SPECIMENOrdering Facility: [facility] Address: [address] [place] [address] Performed By: #### 5 7021-8 ####[facility]ITALNCLIA [id number] [place] [address] [place] Magnesium SerPl-mCncon 04-22 Magnesium [Mass/Vol] 2.0 mg/dL Normal 1.7-2.3 [facility] Comment on above: Order Comment: Speci men Type: BLOOD SPECIMENOrdering Facility: [facility] Address: [address] [place] [address] Performed By: #### 1 9123-9 ####[facility]ITALNCLIA [id number] [place] [address] [place] Maikel 04-18-2024 NAEEM Telephone (OBGYWM) JAMIL RENEE ([id number]) 2000 F Date Time Provider Department 04/18/24 JENNY BARROS During your visit today, we recorded the following information about you: Chely Richter RN 04/18/2024 12:42 PM Signed ----- Message from Jenny Barros MD sent at 04/18/2024 12:13 PM EST ----- Do not take misoprostol, repeat hcg recommended, early w/ +hcg quant. MD Rober Hurtado Tara, RN 04/18/2024 12:44 PM Signed Tried reaching Pt via phone; however, mailbox is full and cannot accept new messages at this time. ARIEL Harris Tara, RN 04/18/2024 12:44 PM Signed Left message for Pt's mother to have Pt contact the office at her earliest convenience. ARIEL Harris Lindsey, RN 04/22/2024 10:42 AM Signed Patient notified and voiced understanding. Sarai Negron RN Allergies As of Date: 04/18/2024 Noted Allergy Reaction PENICILLINS 05/31/2010 2 - Rash Date Reviewed: 04/15/2024 Reviewed by: Melissa Amador MD - Fully Assessed Reason for Visit: Results [95] Prescriptions as of 04/22/2024 - ASHWAGANDHA EXTRACT ORAL Take by mouth. - miSOPROStol (CYTOTEC) [address] 2 tabs per vagina the night before and morning of procedure - fluticasone (FLONASE) 50 mcg/actuation nasal spray Use 2 Sprays in each nostril once daily. Rinse mouth after use. - MAGNESIUM ORAL Take by mouth. - Lactobacillus acidophilus (PROBIOTIC ORAL) Take by mouth. - THEANINE ORAL Take by mouth. Problem List As Of Date 04/18/2024 Noted Resolved Headache [R51] 02/08/2010 Abdominal pain [R10.9] 02/08/2010 Encounter Status:Closed by SARAI NEGRON on 04/22/24 Normal [facility] B-HCG SerPl-aCncon 4 HCG.beta subunit Qn 30.8 m[IU]/mL High <5.0 Cl [facility] Comment on above: Order Comment: Speci men Type: BLOOD SPECIMENOrdering Facility: [facility] Address: [address] [place] [address] Result Comment: PÉREZ TITATIVE HCG NORMAL RANGES Weeks of Gestation (Weeks Since LMP) 3 Weeks (5.8-71.2 mIU/mL) 4 Weeks (9.5-750 mIU/mL) 5 Weeks (217-7138 mIU/mL) 6 Weeks (158-62749 mIU/mL) 7 Weeks (3697-517039 mIU/mL) 8 Weeks (82797-256877 mIU/mL) 9 Weeks (29946-442542 mIU/mL) 10 Weeks (40713-065504 mIU/mL) 12 Weeks (95975-754386 mIU/mL) Referenced to 4th IS of [facility] Performed By: #### 2 1198-7 ####[facility] LABCLIA [id number] [place] [id number] [place] CNCOon 04-15-2024 CNCO Letter Text Normal [facility] CNOVon 04-15-2024 CNOV Office Visit (OBGYWM) JAMIL RENEE ([id number]) 2000 F Date Time Provider Department 04/15/24 11:30 AM MELISSA AMADOR During your visit today, we recorded the following information about you: Blood pressure Weight Last Period 9860 88 kg 03/20/24 Melissa Amador MD 04/15/2024 12:29 PM Signed Jamil Renee is a 23 year old female who presents for problem visit irregular menses for 3 week(s). HPI: EAB in early Dec. Menses was normal in January. Started on time in February but hasn't stopped. Heavy for well over a week. Now just spotting. Did take a test that was negative. Has also started taking iron. Was previously on Sprintec but did not do well emotionally. Some suicidal ideation. Has done better without contraception. Has been considering ParaGard IUD. Does not want to be at this time but worried about trying anything with hormones. Reviewed ParaGard's effect on menstrual bleeding. Reviewed placement of IUD. Does have a difficult time with yearly exams. Willing to try. Will pre treat with motrin and Cytotec. Mom has a history of hyperthyroidism. Pt has not had a thyroid screen in several years. 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 Operator History LMP: 03/20/2024 (Approximate), Having periods Age at Menarche: Age at First : Age at Menopause: Long Distance Operator History Comments: Sexual Activity: Yes; Male Contraception: Condom PAST MEDICAL HISTORY Diagnosis Date Menarche 10/24/2012 Migraine without aura PMH - PAST MEDICAL HISTORY OF 11/2003 normal color vision Rheumatoid arthritis (HCC) Rheumatology PAST SURGICAL HISTORY Procedure Laterality Date TONSILLECTOMY AND ADENOIDECTOMY FAMILY HISTORY Problem Relation Age of Onset Heart Father irregular heart beat Hypertension Paternal Grandfather Diabetes Paternal Grandfather Hypertension Maternal Grandmother Heart Maternal Grandmother Social History Tobacco Use Smoking status: Never Smokeless tobacco: Never Vaping Use Vaping status: current everyday user Substances: Nicotine, Flavoring Devices: Disposable Substance Use Topics Alcohol use: Yes Comment: occasional Drug use: No Current Outpatient Medications Medication Sig ASHWAGANDHA EXTRACT ORAL Take by mouth. MAGNESIUM ORAL Take by mouth. Lactobacillus acidophilus (PROBIOTIC ORAL) Take by mouth. THEANINE ORAL Take by mouth. fluticasone (FLONASE) 50 mcg/actuation nasal spray Use 2 Sprays in each nostril once daily. Rinse mouth after use. (Patient not taking: Reported on 12/28/2023) No current facility-administere d medications for this visit. Allergies As of Date: 04/15/2024 Allergen Noted Reaction PENICILLINS 05/31/2010 Rash Fully Assessed 04/15/2024 REVIEW OF SYSTEMS Abdomen: No bloating, early satiety, indigestion, or increased flatulence. No abdominal pain, nausea, vomiting, diarrhea, or constipation. Bladder: No dysuria, gross hematuria, urinary frequency, urinary urgency, or incontinence. Breast: No breast lumps, nipple d/c, overlying skin changes, redness or skin retraction. Expanded ROS: N/A Allergies and current medication updated:Yes SENSITIVE EXAM: Sensitive exam not performed. EXAM: BP 98/60 Wt 194 lb (88.0kg) LMP 03/20/2024 GENERAL: pleasant, female in no apparent distress HEENT: Normocephalic, atraumatic, mucus membranes moist, and no lesions NECK: full range of motion DERMATOLOGY: Normal, without lesions, non-icteric, and non-hirsute BREAST: deferred CHEST: Normal inspiratory effort ABDOMEN: Deferred PELVIC: deferred BIMANUAL: deferred NEURO: alert and oriented x3,exam grossly non-focal EXTREMITIES: normal ASSESSMENT AND PLAN: Assessment AND Plan Irregular menses Orders: TSH W/REFLEX FT4; Future HCG QUANTITATIVE; Future Encounter for IUD insertion Orders: INSERT INTRAUTERINE DEVICE miSOPROStol (CYTOTEC) 100 mcg tablet; Place 2 tabs per vagina the night before and morning of procedure Melissa Amador MD Referring Provider: SELF [200] Allergies As of Date: 04/15/2024 Noted Allergy Reaction PENICILLINS 05/31/2010 2 - Rash Date Reviewed: 04/15/2024 Reviewed by: Melissa Amador MD - Fully Assessed Reason for Visit: Menstrual Problem [67] Primary Visit Diagnosis:Irregular menses [N92.6] Other Visit Diagnosis:Encounter for IUD insertion [Z30.430] Order(s):TSH W/REFLEX FT4 [SQTSHRF] Order #: [id number] FUTURE HCG QUANTITATIVE [SQHCGQT] Order #: [id number] FUTURE INSERT INTRAUTERINE DEVICE [[id number]] Order #: [id number] miSOPROStol (CYTOTEC) 100 mcg tabletPlace 2 tabs per vagina the night before and morning of procedureDisp: 4 tabletRfl: 0 Prescriptions as of 04/15/2024 - ASHWAGANDHA EXTRACT ORAL Take by mouth. - miSOPROStol (CYTOTEC) [address] 2 tabs per vagina the night before and morning (more content not included)... Normal [facility] Maikel 04-15-2024 NAEEM Telephone (OBGYWM) AJMIL RENEE ([id number]) 2000 F Date Time Provider Department 04/15/24 MELISSA AMADOR During your visit today, we recorded the following information about you: Melissa Dorantes RN 04/15/2024 12:26 PM Signed Patient had her HCG and TSH level checked today. Asking if she could have her vitamin levels checked using those same specimens. Inquired if there was a specific level she wanted. Stated things like her iron and magnesium. Can additional labs be ordered? Patient agreeable to scheduling a lab appointment. ARIEL Wise Jennifer, MD 04/15/2024 12:36 PM Signed Sure. Orders placed Allergies As of Date: 04/15/2024 Noted Allergy Reaction PENICILLINS 05/31/2010 2 - Rash Date Reviewed: 04/15/2024 Reviewed by: Melissa Amador MD - Fully Assessed Reason for Visit: Patient Question [3687] Primary Visit Diagnosis:Irregular menses [N92.6] Order(s):COMPLETE BLOOD COUNT AND DIFFERENTIAL [SQCBCDIF] Order #: [id number] FUTURE MAGNESIUM [SQMG1] Order #: [id number] FUTURE Prescriptions as of 04/15/2024 - ASHWAGANDHA EXTRACT ORAL Take by mouth. - miSOPROStol (CYTOTEC) [address] 2 tabs per vagina the night before and morning of procedure - fluticasone (FLONASE) 50 mcg/actuation nasal spray Use 2 Sprays in each nostril once daily. Rinse mouth after use. - MAGNESIUM ORAL Take by mouth. - Lactobacillus acidophilus (PROBIOTIC ORAL) Take by mouth. - THEANINE ORAL Take by mouth. Problem List As Of Date 04/15/2024 Noted Resolved Headache [R51] 02/08/2010 Abdominal pain [R10.9] 02/08/2010 Encounter Status:Closed by MEG WALLACE on 04/15/24 Normal [facility] TSH W/REFLEX FT4on 4 TSH Qn 1.680 m[IU]/L Normal 0.270-4.200 [facility] Comment on above: Order Comment: Speci men Type: BLOOD SPECIMENOrdering Facility: [facility] Address: [address] [place] [address] Result Comment: If t he patient is , TSH reference range varies by gestational period: First Trimester (weeks 9-12): 0.180-2.990 mIU/L Second Trimester: 0.110-3.980 mIU/L Third Trimester: 0.480-4.710 mIU/L Franklin Negron et al. A Practical Approach for the Verifications and Determination of Site- and Trimester-Specific Reference Intervals for Thyroid Function tests in . Thyroid, 2019:29:3:412-420. Wily Novoa, et al. 2017 Guidelines of the [place] Thy[employer] Association for the Diagnosis and Management of Thyroid Disease during and the . Thyroid, 2017:27:3:315-389. Performed By: #### T [facility] ####[facility] LABCLIA [id number] STARLAEber NGUYỄN [id number] OF [facility] CNOVon 03-06-2024 CNOV Office Visit (UCWSTR) JAMIL RENEE ([id number]) 2000 F Date Time Provider Department 03/06/24 7:45 PM HERMELINDA WELLS WSTR During your visit today, we recorded the following information about you: Temperature Pulse Respiration Blood pressure 98.5 degrees 103/minute 18/minute 112/72 Weight 88.1 kg Hermelinda Wells PA-C 03/06/2024 7:49 PM Signed May continue Flonase taza-xgc-jienbkg, OTC decongestant, antihistamine. If symptoms are not improving after 3 to 5 days or worsening or you spike a fever be seen again. Hermelinda Wells PA-C 03/06/2024 7:58 PM Signed This note was created using NoteWriter. Subjective Jamil David Renee is a 23 year old female. HPI Patient presents with a chief complaint of nasal congestion, sinus pressure earaches over the past day. No significant cough. Sometimes does have to clear her throat. Her boyfriend was sick with URI symptoms recently and she also attended a wedding recently. She has had some hot flashes but no documented fever. No vomiting or diarrhea. She did try some Afrin duub-slj-dtmearr. Review of Systems Constitutional: Positive for chills and fatigue. Negative for fever. HENT: Positive for congestion, ear pain, postnasal drip and sinus pressure. Negative for ear discharge. Respiratory: Negative for cough, shortness of breath and wheezing. Cardiovascular: Negative. Gastrointestinal: Negative. Genitourinary: Negative. Musculoskeletal: Negative. Neurological: Positive for headaches. All other systems reviewed and are negative. PAST MEDICAL HISTORY Diagnosis Date Menarche 10/24/2012 Migraine without aura PMH - PAST MEDICAL HISTORY OF 11/2003 normal color vision Rheumatoid arthritis (HCC) Rheumatology Current Outpatient Medications Medication Sig Dispense Refill MAGNESIUM ORAL Take by mouth. Lactobacillus acidophilus (PROBIOTIC ORAL) Take by mouth. THEANINE ORAL Take by mouth. fluticasone (FLONASE) 50 mcg/actuation nasal spray Use 2 Sprays in each nostril once daily. Rinse mouth after use. (Patient not taking: Reported on 12/28/2023) 1 Each 0 No current facility-administere d medications for this visit. PAST SURGICAL HISTORY Procedure Laterality Date TONSILLECTOMY AND ADENOIDECTOMY FAMILY HISTORY Problem Relation Age of Onset Heart Father irregular heart beat Hypertension Paternal Grandfather Diabetes Paternal Grandfather Hypertension Maternal Grandmother Heart Maternal Grandmother Social History Tobacco Use Smoking status: Never Smokeless tobacco: Never Vaping Use Vaping status: current everyday user Substances: Nicotine, Flavoring Devices: Disposable Substance Use Topics Alcohol use: Yes Comment: occasional Drug use: No Objective BP 112/72 Pulse 103 Temp 36.9 ?C (98.5 ?F) (Tympanic) Resp 18 Wt 88.1 kg (194 lb 3.6 oz) LMP 12/01/2023 (Approximate) SpO2 99% BMI 29.32 kg/m? Physical Exam Vitals reviewed. Constitutional: Appearance: Normal appearance. HENT: Head: Normocephalic and atraumatic. Right Ear: Tympanic membrane, ear canal and external ear normal. Left Ear: Tympanic membrane, ear canal and external ear normal. Nose: Congestion present. Mouth/Throat: Mouth: Mucous membranes are moist. Pharynx: Oropharynx is clear. Cardiovascular: Rate and Rhythm: Normal rate and regular rhythm. Heart sounds: Normal heart sounds. Pulmonary: Effort: Pulmonary effort is normal. Breath sounds: Normal breath sounds. Musculoskeletal: Cervical back: Neck supple. Lymphadenopathy: Cervical: No cervical adenopathy. Skin: General: Skin is warm and dry. Findings: No rash. Neurological: Mental Status: She is alert. Assessment and Plan ASSESSMENT/PLAN: 1. Viral URI - ICD9: 465.9, ICD10: J06.9 - Discussed viral etiology and rationale for treatment. - Symptomatic treatment with prn analgesia - Supportive care with fluids and rest - The patient may also use OTC decongestants prn. - Follow up in 3-5 days if symptoms persist or sooner if worsening of symptoms Hermelinda Wells PA-C Allergies As of Date: 03/06/2024 Noted Allergy Reaction PENICILLINS 05/31/2010 2 - Rash Date Reviewed: 03/06/2024 Reviewed by: Lucy Davis LPN - Fully Assessed Reason for Visit: Sinus Problem [99] Cmt: Sinus, congestion and CRUZ x 2 days Primary Visit Diagnosis:Viral URI [J06.9] Prescriptions as of 03/06/2024 - fluticasone (FLONASE) 50 mcg/actuation nasal spray Use 2 Sprays in each nostril once daily. Rinse mouth after use. - MAGNESIUM ORAL Take by mouth. - Lactobacillus acidophilus (PROBIOTIC ORAL) Take by mouth. - THEANINE ORAL Take by mouth. Problem List As Of Date 03/06/2024 Noted Resolved Headache [R51] 02/08/2010 Abdominal pain [R10.9] 02/08/2010 Other instructions from your clinician: May continue Flonase bckn-mkm-saxhcxa, OTC decongestant, antihistamine. If symptom (more content not included)... Normal [facility] C. trachomatis+N. gonorrhoea e DNA SANTINO+probe Ql (Unsp spec)on 12-28-2023 C. trachomatis rRNA SANTINO+probe Ql (Unsp spec) Negative Normal Negative for Chlamydia trachomatis by amplificaton [facility] Comment on above: Order Comment: Speci men Type: SWABOrdering Facility: [facility] Address: [address] [place] [address] Performed By: #### T RVAMP, 96684-0 ####[facility] LABIA [id number] [place] [address] [place] N. gonorrhoeae rRNA SANTINO+probe Ql (Unsp spec) Negative Normal Negative for Neisseria gonorrhoeae by amplification [facility] Comment on above: Order Comment: Speci men Type: SWABOrdering Facility: [facility] Address: [address] [place] [address] Performed By: #### T RVAMP, 84674-8 ####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 Menses: cycles every 24-30 days and 7 days of flow. 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 Operator History Comments: Sexual Activity: Yes; Male Contraception: Condom PAST MEDICAL HISTORY 08/23/2016: Herpes simplex 10/24/12: Menarche No date: Migraine without aura 11/25: PMH - PAST MEDICAL HISTORY OF Comment: normal color vision No date: Rheumatoid arthritis (HCC) Comment: RheumatologyPAST SURGICAL HISTORY No date: TONSILLECTOMY AND ADENOIDECTOMY FAMILY HISTORY Problem Relation Age of Onset Heart Father irregular heart beat Hypertension Paternal Grandfather Diabetes Paternal Grandfather Hypertension Maternal Grandmother Heart Maternal Grandmother SOCIAL HISTORY Social History Tobacco Use Smoking status: Never Smokeless tobacco: Never Vaping Use Vaping status: current everyday user Substances: Nicotine, Flavoring Devices: Disposable Substance Use Topics Alcohol use: Yes Comment: occasional Drug use: No REVIEW OF SYSTEMS Abdomen: No abdominal pain, nausea, vomiting, diarrhea, or constipation. No bloating, early satiety, indigestion, or increased flatulence. Bladder: No dysuria, gross hematuria, urinary frequency, urinary urgency, or incontinence. Breast: No breast lumps, nipple d/c, overlying skin changes, redness or skin retraction. Allergies and current medication updated:Yes EXAM: BP 110/74 Ht 5' 8.25" (1.73m) Wt 194 lb (88.0kg) LMP 12/01/2023 BMI 29.27 kg/(m2). GENERAL: pleasant, female in no apparent distress BREAST: soft, non-tender, symmetric, no dominant mass, normal nipple-areolar complex, no lymphadenopathy, and no nipple discharge CHEST: Normal inspiratory effort ABDOMEN: soft, non-tender, and no masses PELVIC: external genitalia normal, normal Bartholin's glands, urethra, [place]'s glands, no vulvar lesions, no cervical lesions, good vaginal support, physiologic discharge present, normal appearing perineal body and perianal region BIMANUAL: uterus normal size, shape and consistency, no adnexal masses, and non-tender RECTOVAGINAL: deferred. NEURO: alert and oriented x3,exam grossly non-focal EXTREMITIES: normal ASSESSMENT/PLAN: 1) Health maintenance: Pap up to date. Nutrition, exercise and routine health maintenance exams reviewed. HPV vaccine: completed series 2) Contraception: condoms. Contraceptive options reviewed and information provided. Discussed Mirena AND Paragard IUD and patient considering these as options. 3) STD screening: Accepted STD check for Gonorrhea and Chlamydia with trich. 4) Follow up one year or sooner as needed Juan Ramon Huang MD Allergies As of Date: 12/28/2023 Noted Allergy Reaction PENICILLINS 05/31/2010 2 - Rash Date Reviewed: 12/28/2023 Reviewed by: Juan Ramon Huang MD - Fully Assessed Reason for Visit: Well Woman [1463] Primary Visit Diagnosis:Encounter for gynecological examination (general) (routine) without abnormal findings [Z01.419] Other Visit Diagnoses:Counseling for control regarding intrauterine device (IUD) [Z30.09] Screen for STD (sexually transmitted disease) [Z11.3] Order(s):INSERT INTRAUTERINE DEVICE [8361296] Order #: [id number] GONORRHEA/CHLAMYDIA NAAT [SQGCCT] Order #: [id number] TRICHOMONAS VAGINALIS NAAT [SQTRVAMP] Order #: [id number] Prescriptions as of 12/28/2023 - fluticasone (FLONASE) 50 mcg/actuation nasal spray Use 2 Sprays in each nostril once daily. Rinse mouth after use. - MAGNESIUM ORAL Take by mouth. - Lactobacillus acidophilus (PROBIOTIC ORAL) Take by mouth. - THEANINE ORAL Take by mouth. Problem List As Of Date 12/28/2023 Noted Resolved Headache [R51] 02/08/2010 Abdominal pain [R10.9] 02/08/2010 Medications Discontinued During This Encounter Prescriptions - amino acids (AMINO ACID ORAL) (Discontinued) Reported on 12/28/2023 - Brompheniramine-Pseu doeph-DM (BROMFED DM) 2-30-10 mg/5 mL syrup (Discontinued) Reported on 12/28/2023 - nystatin (MYCOSTATIN) ointment (Discontinued) Reported on 12/22/2022 - Brompheniramine-Pseu doeph-DM (BROMFED DM) 2-30-10 mg/5 mL syrup (Discontinued) Reported on 12/28/2023 - vitamin A and D oint (more content not included)... Normal [facility] TRICHOMONAS VAGINALIS NAATon 12-28-2023 T. vaginalis DNA SANTINO+probe Ql (Unsp spec) Negative Normal Negative for Trichomonas vaginalis by amplification [facility] Comment on above: Order Comment: Speci men Type: SWABOrdering Facility: [facility] Address: [address] [place] [address] Performed By: #### T RVAMP, 77942-9 ####[facility] LABCLIA [id number] [facility] [id number] VILLE [id number] [place] No Panel Informationon 07-27 [facility] UA DIP, URINE (POC)on 2022 BILIRUBIN UA (POCT) Negative Negative [facility] CLARITY UA (POCT) Clear [facility] COLOR UA (POCT) Yellow [facility] GLUCOSE UA (POCT) Negative Negative mg/dL [facility] HEMOGLOBIN/BLOOD UA (POCT) Negative Negative [facility] KETONE UA (POCT) Negative Negative mg/dL [facility] LEUKOCYTES UA (POCT) Negative Negative [facility] NITRITE UA (POCT) Negative Negative [facility] PH UA (POCT) 5.5 4.5 - 8.0 [facility] Protein Ql (U) Negative Negative mg/dL [facility] SPECIFIC GRAVITY UA (POCT) 1.020 1.005 - 1.030 [facility] UROBILINOGEN UA (POCT) 0.2 E.U./dL Normal E.U./ dL [facility] Cat Scratch Disease ABon B.miller IgM Negative Normal Neg:<1:100 [facility] Comment on above: Result Comment: Note : Bartonella henselae is now regarded as the etiologic agent of Cat Scratch Disease, bacillary angiomatosis, endocarditis and fever with bacteremia. Bartonella miller also causes bacillary angiomatosis particularly among immunocompromised patients, and trench fever. This test was developed and its performance characteristics determined by [facility]. It has not been cleared or approved by the Food and Drug Administration. The FDA has determined that such clearance or approval is not necessary. Performed at: [address] [id number] Tree Thinner: Zuly Noriega MD, Phone: [phone] Performed By: #### L 7100.0100, L700.5500 #### [facility] [address] [place], [address] B.henselae IgG Negative Normal Neg:<1:320 [facility] Comment on above: Performed By: #### L 7100.0100, L700.5500 #### [facility] [address] [place], [address] B.henselae IgM Negative Normal Neg:<1:100 [facility] Comment on above: Performed By: #### L 7100.0100, L700.5500 #### [facility] [address] [place], [address] B.miller IgG Negative Normal Neg:<1:320 [facility] Comment on above: Performed By: #### L 7100.0100, L700.5500 #### [facility] [address] [place], [address] [place] 12-27-2020 Monocytes (Bld) [#/Vol] Negative Normal Negative [facility] Comment on above: Performed By: #### L 7100.0100, L700.5500 #### [facility] [address] [place], [address] 12 Lead EKGon 11-21-2020 12 Lead EKG [facility] [address] [place] [address] 12 Lead EKG 11/21/20 1050 MR#: [id number] Acct: [id number] Name: JAMIL RENEE Rep #: [id number] : 2000 From: Fausto Vitale MD Attending Dr: Status: DEP ER Ordering Dr: Marco Mercado DO Date: 11/21/20 Location: ED Sex: F C Admitted: Test Reason : SOB Blood Pressure : / mmHG Vent. Rate : 089 BPM Atrial Rate : 089 BPM P-R Int : 122 ms QRS Dur : 074 ms QT Int : 340 ms P-R-T Axes : 050 056 033 degrees QTc Int : 413 ms Normal sinus rhythm Normal ECG Confirmed by HANK FIGUEREDO, FAUSTO ([id number]), rewrite editor BLOSSOM RICHARDS ([id number]) on 11/26/2020 12:57:42 PM Referred By: Confirmed By:FAUSTO VITALE MD 11/26/201256 Date Fausto Vitale MD CC: Dr. Marco Mercado, DO; Dr. Humza Hurd, DO Signed Normal [facility] CBC W/Diff, Automatedon 07-3 Absolute Lymph 0.98 X10 3/uL Normal 0.83-4.51 [facility] Comment on above: Performed By: #### L 500.4050, L100.0100, L700.6800 #### [facility] [address] [place], [address] Absolute Neut 5.1 X10 3/uL Normal 2.0-7.7 [facility] Comment on above: Performed By: #### L 500.4050, L100.0100, L700.6800 #### [facility] [address] [place], [address] Basophils/100 WBC (Bld) 0.4 % Normal 0-1 [facility] Comment on above: Performed By: #### L 500.4050, L100.0100, L700.6800 #### [facility] [address] [place], [address] Eosinophils/100 WBC (Bld) 0.4 % Normal 0-5 [facility] Comment on above: Performed By: #### L 500.4050, L100.0100, L700.6800 #### [facility] [address] [place], [address] Erythrocyte distribution width (RBC) [Ratio] 12.1 % Normal 11.6-14.6 [facility] Comment on above: Performed By: #### L 500.4050, L100.0100, L700.6800 #### [facility] [address] [place], [address] Hematocrit (Bld) [Volume fraction] 45.6 % Normal 37-47 [facility] Comment on above: Performed By: #### L 500.4050, L100.0100, L700.6800 #### [facility] [address] [place], [address] Hemoglobin (Bld) [Mass/Vol] 14.7 g/dL Normal 12.0-15.0 [facility] Comment on above: Performed By: #### L 500.4050, L100.0100, L700.6800 #### [facility] [address] [place], [address] IG% 0.600 Normal 0.0-0.9 [facility] Comment on above: Result Comment: IG% - Immature Granulocytes (promyelocytes, myelocytes and metamyelocytes) > 1% indicates that a LEFT SHIFT is Present. Performed By: #### L 500.4050, L100.0100, L700.6800 #### [facility] [address] [place], [address] Lymphocytes/100 WBC (Bld) 14.3 % Low 19-41 [facility] Comment on above: Performed By: #### L 500.4050, L100.0100, L700.6800 #### [facility] [address] [place], [address] MCH (RBC) [Entitic mass] 29.1 pg Normal 27.0-32.0 [facility] Comment on above: Performed By: #### L 500.4050, L100.0100, L700.6800 #### [facility] [address] [place], [address] MCHC (RBC) [Mass/Vol] 32.2 g/dL Normal 32-36 [facility] Comment on above: Performed By: #### L 500.4050, L100.0100, L700.6800 #### [facility] [address] [place], [address] MCV (RBC) [Entitic vol] 90.1 fL Normal 81-99 [facility] Comment on above: Performed By: #### L 500.4050, L100.0100, L700.6800 #### [facility] [address] [place], [address] Monocytes/100 WBC (Bld) 9.6 % Normal 0-10 [facility] Comment on above: Performed By: #### L 500.4050, L100.0100, L700.6800 #### [facility] [address] [place], [address] Neutrophils/100 WBC (Bld) 74.7 % High 47-70 [facility] Comment on above: Performed By: #### L 500.4050, L100.0100, L700.6800 #### [facility] [address] [place], [address] Nucleated RBC (Bld) [#/Vol] 0 10*3/uL Normal 0-5 [facility] Comment on above: Performed By: #### L 500.4050, L100.0100, L700.6800 #### [facility] [address] [place], [address] Platelet mean volume (Bld) [Entitic vol] 9.8 fL Normal 6.2-12.0 [facility] Comment on above: Performed By: #### L 500.4050, L100.0100, L700.6800 #### [facility] [address] [place], [address] Platelets (Bld) [#/Vol] 244 10*3/uL Normal 150-450 [facility] Comment on above: Performed By: #### L 500.4050, L100.0100, L700.6800 #### [facility] [address] [place], [address] RBC (Bld) [#/Vol] 5.06 10*6/uL Normal 4.2-5.4 [facility] Comment on above: Performed By: #### L 500.4050, L100.0100, L700.6800 #### [facility] [address] [place], [address] RDW SD 39.8 fl Normal 35.1-43.9 [facility] Comment on above: Performed By: #### L 500.4050, L100.0100, L700.6800 #### [facility] [address] [place], [address] WBC (Bld) [#/Vol] 6.8 10*3/uL Normal 4.4-11.0 [facility] Comment on above: Performed By: #### L 500.4050, L100.0100, L700.6800 #### [facility] [address] [place], [address] COVID 19 AG RAPID (RN COLLE T)on 11-21-2020 SARS-CoV-2 (COVID-19) RNA SANTINO+probe Ql (Unsp spec) Comments: Order Always:Unless pt has Inhouse Cov19 Criteria+ *Negative results from patients with symptom onset beyond five days should be treated as presumptive and confirmed by a molecular assay if clinically necessary. Negative results should not be used as the sole basis for treatment or for patient management. COVID 19 AG RAPID (RN COLLECT) *Positive results do not differentiate between SARS-CoV and SARS-CoV-2. If differentation of the specific SARS virus is desired an additional sample and an additional order is required. COVID 19 AG RAPID (RN COLLECT) * This test has not been FDA cleared or approved; the test has been authorized by FDA under an Emergency Use Authorization (EAU) for use by laboratories certified under CLIA that meet the requirements to perform moderate, high, or waived complexity tests. COVID 19 AG RAPID (RN COLLECT) Normal Reference Range: Negative COVID 19 AG RAPID (RN COLLECT) Copy of report sent to Infection Control Printer [id number] 11/21/20 1053 DCANNON. SARS-CoV-2 (COVID 19) *POSITIVE* A RAPID METHOD BinaxNow COVID19 Ag Card, lateral flow COVID Normal [facility] Comment on above: Performed By: #### M 100.505 #### [facility] [address] [place], [address] Comprehensive Metabolic Prof [facility] 11-21-2020 Albumin [Mass/Vol] 4.0 g/dL Normal 3.2-5.0 [facility] Comment on above: Performed By: #### L 500.4050, L100.0100, L700.6800 #### [facility] [address] [place], [address] Albumin/Globulin [Mass ratio] 1.1 {ratio} Normal 0.9-2.4 [facility] Comment on above: Performed By: #### L 500.4050, L100.0100, L700.6800 #### [facility] [address] [place], [address] ALK P 69 U/L Normal 45-117 [facility] Comment on above: Performed By: #### L 500.4050, L100.0100, L700.6800 #### [facility] [address] [place], [address] ALT [Catalytic activity/Vol] 20 U/L Normal 13-56 [facility] Comment on above: Performed By: #### L 500.4050, L100.0100, L700.6800 #### [facility] [address] [place], [address] AST [Catalytic activity/Vol] 11 U/L Low 15-37 [facility] Comment on above: Performed By: #### L 500.4050, L100.0100, L700.6800 #### [facility] [address] [place], [address] Bilirubin [Mass/Vol] 0.30 mg/dL Normal 0.20-1.00 [facility] Comment on above: Result Comment: For patients on eltrombopag therapy, use of Dimension [place] TBIL is not recommended. Performed By: #### L 500.4050, L100.0100, L700.6800 #### [facility] [address] [place], [address] BUN/CRE 13.3 RATIO Normal 10-20 [facility] Comment on above: Performed By: #### L 500.4050, L100.0100, L700.6800 #### [facility] [address] [place], [address] CA,Total 8.5 mg/dL Normal 8.5-10.1 [facility] Comment on above: Performed By: #### L 500.4050, L100.0100, L700.6800 #### [facility] [address] [place], [address] Chloride [Moles/Vol] 103 mmol/L Normal 98-107 [facility] Comment on above: Performed By: #### L 500.4050, L100.0100, L700.6800 #### [facility] [address] [place], [address] CO2 [Moles/Vol] 29.0 mmol/L Normal 21.0-32.0 [facility] Comment on above: Performed By: #### L 500.4050, L100.0100, L700.6800 #### [facility] [address] [place], [address] Creatinine [Mass/Vol] 0.68 mg/dL Normal 0.55-1.02 [facility] Comment on above: Result Comment: The validity of the calculated GFR GFRAA in patients over 70 years has not been determined. Clinical correlation is essential. Performed By: #### L 500.4050, L100.0100, L700.6800 #### [facility] [address] [place], [address] ECRCL 136.77 ml/min Normal [facility] Comment on above: Performed By: #### L 500.4050, L100.0100, L700.6800 #### [facility] [address] [place], [address] EST GFR - AA 139 mL/min Normal >60 [facility] Comment on above: Result Comment: Afri can Kyrgyz GFR Calc Performed By: #### L 500.4050, L100.0100, L700.6800 #### [facility] [address] [place], [address] GAP 5 Normal 5-15 [facility] Comment on above: Performed By: #### L 500.4050, L100.0100, L700.6800 #### [facility] [address] [place], [address] GFR/1.73 sq M.predicted among non-blacks MDRD (S/P/Bld) [Vol rate/Area] 115 mL/min/{1.73_m2} Normal >60 [facility] Comment on above: Result Comment: Non- GFR Calc Performed By: #### L 500.4050, L100.0100, L700.6800 #### [facility] [address] [place], [address] Globulin (S) [Mass/Vol] 3.5 g/dL Normal 2.2-4.2 [facility] Comment on above: Performed By: #### L 500.4050, L100.0100, L700.6800 #### [facility] [address] [place], [address] Glucose [Mass/Vol] 104 mg/dL Normal 74-106 [facility] Comment on above: Result Comment: Fast ing Glucose result from 100 to 125 mg/dL suggests IMPAIRED HOMEOSTASIS per A.D.A. criteria. Please note revised GLUCOSE reference range effective 2017. Performed By: #### L 500.4050, L100.0100, L700.6800 #### [facility] [address] [place], [address] Potassium [Moles/Vol] 4.1 mmol/L Normal 3.5-5.1 [facility] Comment on above: Performed By: #### L 500.4050, L100.0100, L700.6800 #### [facility] [address] [place], [address] Sodium [Moles/Vol] 137 mmol/L Normal 136-145 [facility] Comment on above: Performed By: #### L 500.4050, L100.0100, L700.6800 #### [facility] [address] [place], [address] T PROT 7.5 g/dL Normal 6.4-8.2 [facility] Comment on above: Performed By: #### L 500.4050, L100.0100, L700.6800 #### [facility] [address] [place], [address] Urea nitrogen [Mass/Vol] 9 mg/dL Normal 7-18 [facility] Comment on above: Performed By: #### L 500.4050, L100.0100, L700.6800 #### [facility] [address] [place], [address] Emergency Department Summary on 11-21-2020 Emergency Department Summary [facility] Medical Records Department [address] [place] [address] Emergency Department Summary 11/21/20 MR#: [id number] Acct: [id number] Name: JAMIL RENEE Rep #: [id number] : 2000 19 From: Marco Mercado DO PCP: Dr. Humza Hurd DO Status:DEP ER Location: ED HPI History of Present Illness Chief Complaint: Cold Sx Informant: patient Narrative Narrative: 19-year-old female presents to the emergency department stating that she does not feel well. Patient states that 2 days ago she woke up with fever. She developed rhinorrhea and cough. Cough is productive of a greenish colored sputum. She notes no vomiting or diarrhea, no earache. She does note a mild sore throat. She notes generalized body aches. She is not vaccinated against Covid. Patient states that today she tried to get up to go to work but felt like she may pass out. [facility] Medical History Seasonal allergies Severe headache Shortness of breath Home Medications NK 11/21/20 [History Last Taken Unknown] Allergy/AdvReac Type Severity Reaction Status Date / Time amoxicillin AdvReac Unknown Verified 11/21/20 10:10 Penicillins AdvReac Unknown Verified 11/21/20 10:10 Social History Smoking Status: Current some day smoker tobacco type: e-cigarettes alcohol intake: never ROS ROS ED Constitutional Constitutional ED: Reports chills and fever(s); Denies weight loss Eyes Eyes: Denies change in vision or diplopia ENT ENT ED: Reports rhinorrhea and sore throat; Denies ear pain Cardiovascular Cardiovascular: Denies chest pain, orthopnea, palpitations or racing heartbeat Respiratory/Chest Respiratory/Chest: Reports cough, dyspnea, dyspnea on exertion and sputum; Denies orthopnea Gastrointestinal Gastrointestinal: Denies abdominal pain, diarrhea, nausea or vomiting Genitourinary Genitourinary ED: Denies dysuria, hematuria or urinary frequency Musculoskeletal Musculoskeletal: Reports myalgias; Denies arthralgias Integumentary Denies abscess or rash Neurologic Neurologic: Reports headache(s); Denies weakness Psychiatric Psychiatric: Denies anxiety, depression, suicidal ideation or suicidal thoughts Endocrine Endocrinology: Denies polydipsia, polyphagia or polyuria Allergic/Immunologic Allergic/Immunologic ED: Denies mouth swelling, tongue swelling or urticaria EXAM Physical Exam Const Vital Signs: 11/21/20 10:10 11/21/20 10:40 Temperature 97.3 F L Temperature Source Temporal Pulse Rate 111 H Respiratory Rate 18 Respiratory Effort Normal Non-Labored Respiratory Depth Normal Respiratory Pattern Normal Blood Pressure 103/72 Blood Pressure Mean 82 Pulse Ox 96 Oxygen Delivery Method Room Air Positive well nourished and well developed General Appearance ED: well developed HEENT Reports normocephalic, head/scalp atraumatic and moist mucous membranes Eyes PERRL and EOMs intact bilaterally Neck no lymphadenopathy, supple and no JVD Resp normal respiratory effort and clear to auscultation bilaterally Cardio regular rhythm and no murmurs Rate: tachycardic GI normal to inspection, nondistended, normoactive bowel sounds and non-tender Palpation: soft Back/Spine no CVA tenderness and normal ROM Extremity normal to inspection General Extremety ED: Negative for edema General Extremity: Negative for edema Neuro oriented x3 and CN's II-XII intact bilaterally Sensorium / Orientation: alert Motor Exam: strength 5/5 throughout Psych mental status grossly normal Mood Affect: Negative for depressed or tearful Skin no rashes or lesions noted and no wounds MDM MDM MDM Narrative Medical decision making narrative: Patient's COVID-19 is positive. White count 6.8. Patient does not wish a chest x-ray because she states that she had one at urgent care and was told that it was normal. At this point patient's not hypoxic. I think she can be discharged home with supportive care. Lab Data Attestation: I reviewed the patient's lab results. Labs: Laboratory Results - last 24 hr 11/21/20 11/21/20 11/21/20 10:30 10:30 10:30 WBC 6.8 RBC 5.06 Hgb 14.7 Hct 45.6 MCV 90.1 MCH 29.1 MCHC 32.2 RDW Std Deviation 39.8 RDW Coeff of Pauline 12.1 Plt Count 244 MPV 9.8 Immature Gran % (Auto) 0.600 Neut % (Auto) 74.7 H Lymph % (Auto) 14.[address] [place] % (Auto) 9.6 Eos % (Auto) 0.4 Baso % (Auto) 0.4 Absolute Neuts (auto) 5.1 Absolute Lymphs (auto) 0.98 Nucleated RBC % 0 Sodium 137 Potassium 4.1 Chloride 103 Carbon Dioxide 29.0 Anion Gap 5 BUN 9 Creatinine 0.68 Estim Creat Clear Calc 136.77 Est GFR (MDRD) Af Amer 139 Est GFR (more content not included)... Normal [facility] Influenza A+B (Rapid MORRIS)on 11-21-2020 FLU Negative test results should be confirmed with FLU PANEL MOLECULAR if indicated. Influenza A+B (Rapid MORRIS) Normal Reference Range: Negative Ana, MORRIS method Influenza Ag, Direct Presumptive NEGATIVE for Influenza A/B Antigen (See Note) Normal [facility] Comment on above: Performed By: #### M 101.0101 #### [facility] [address] [place], [address] ,Serum,hCG Quali.on 11-21-2020 HCG, SERUM QUAL Negative Normal [facility] Comment on above: Performed By: #### L 500.4050, L100.0100, L700.6800 #### [facility] [address] [place], [address] XR Chest PA and Lateralon IMPRESSION: No acute radiographic abnormality. Material Handling Supervisor: PSCB Transcribe Date/Time: Nov 21 2020 9:50A Dictated by : LAUQITA PHILLIP MD This examination was interpreted and the report reviewed and electronically signed by: LAQUITA PHILLIP MD on Nov 21 2020 9:51AM EST DIVISION OF RADIOLOGY * * *Final Report* * * DATE OF EXAM: Nov 21 2020 9:42AM WOX 5291 - XR CHEST 2V FRONTAL/LAT / PROCEDURE REASON: Cough * * * * Physician Interpretation * * * * EXAMINATION: CHEST RADIOGRAPH (2 VIEW FRONTAL & LATERAL) CLINICAL HISTORY: Cough MQ: XC2_6 EXAM DATE/TIME: 11/21/2020 9:42 AM COMPARISON: No relevant prior studies available. RESULT: Lines, tubes, and devices: None. Lungs and pleura: No consolidation. No lung mass. No pleural effusion. No pneumothorax. Cardiomediastinal silhouette: Normal cardiomediastinal silhouette. Bones and soft tissues: Unremarkable. DIVISION OF RADIOLOGY Provider, [facility] [place] - 11/21/2020 * * *Final Report* * * DATE OF EXAM: Nov 21 2020 9:42AM WOX 5291 - XR CHEST 2V FRONTAL/LAT / PROCEDURE REASON: Cough * * * * Physician Interpretation * * * * EXAMINATION: CHEST RADIOGRAPH (2 VIEW FRONTAL & LATERAL) CLINICAL HISTORY: Cough MQ: XC2_6 EXAM DATE/TIME: 11/21/2020 9:42 AM COMPARISON: No relevant prior studies available. RESULT: Lines, tubes, and devices: None. Lungs and pleura: No consolidation. No lung mass. No pleural effusion. No pneumothorax. Cardiomediastinal silhouette: Normal cardiomediastinal silhouette. Bones and soft tissues: Unremarkable. IMPRESSION IMPRESSION: No acute radiographic abnormality. Material Handling Supervisor: PSCB Transcribe Date/Time: Nov 21 2020 9:50A Dictated by : LAQUITA PHILLIP MD This examination was interpreted and the report reviewed and electronically signed by: LAQUITA PHILLIP MD on Nov 21 2020 9:51AM EST [facility] Study observation (narrative) [facility] XR Chest PA and LateralOrder ed By: [facility] Provider on 11-21-2020 [facility] Vital Signs Date Time Vital Sign Value Performing Clinician Migueli milena 11-06-2024 16:22-0400 Body mass index (BMI) [Ratio] 28.23 kg/m2 Freda Avalos APRN.HUMAN RESOURCES BENEFITS MANAGER Work Phone: [facility] 11-06-2024 16:22-0400 Body temperature 98.4 [degF] Freda Avalos APRN.CNP Work Phone: [facility] 11-06-2024 16:22-0400 Body weight 86.7 kg Freda Avalos APRN.HUMAN RESOURCES BENEFITS MANAGER Work Phone: [facility] 11-06-2024 16:22-0400 Diastolic blood pressure 72 mm[Hg] Freda Avalos DOCUMENT PREPARATION SPECIALIST.HUMAN RESOURCES BENEFITS MANAGER Work Phone: [facility] 11-06-2024 16:22-0400 Heart rate 95 /min Freda Avalos DOCUMENT PREPARATION SPECIALIST.HUMAN RESOURCES BENEFITS MANAGER Work Phone: [facility] 11-06-2024 16:22-0400 Respiratory rate 20 /min Freda Avalos DOCUMENT PREPARATION SPECIALIST.HUMAN RESOURCES BENEFITS MANAGER Work Phone: [facility] 11-06-2024 16:22-0400 SaO2% (BldA) [Mass fraction] 95 % Freda Avalos DOCUMENT PREPARATION SPECIALIST.HUMAN RESOURCES BENEFITS MANAGER Work Phone: [facility] 11-06-2024 16:22-0400 Systolic blood pressure 100 mm[Hg] Freda Avalos DOCUMENT PREPARATION SPECIALIST.HUMAN RESOURCES BENEFITS MANAGER Work Phone: [facility] 10-30-2024 19:12-0400 Body mass index (BMI) [Ratio] 28.49 kg/m2 Barbara Wells DOCUMENT PREPARATION SPECIALIST.HUMAN RESOURCES BENEFITS MANAGER Work Phone: [facility] 10-30-2024 19:12-0400 Body temperature 97.81 [degF] Barbara Wells DOCUMENT PREPARATION SPECIALIST.HUMAN RESOURCES BENEFITS MANAGER Work Phone: [facility] 10-30-2024 19:12-0400 Body weight 87.5 kg Barbara Wells DOCUMENT PREPARATION SPECIALIST.HUMAN RESOURCES BENEFITS MANAGER Work Phone: [facility] 10-30-2024 19:12-0400 Diastolic blood pressure 78 mm[Hg] Barbara Wells DOCUMENT PREPARATION SPECIALIST.HUMAN RESOURCES BENEFITS MANAGER Work Phone: [facility] 10-30-2024 19:12-0400 Heart rate 89 /min Barbara Wells DOCUMENT PREPARATION SPECIALIST.HUMAN RESOURCES BENEFITS MANAGER Work Phone: [facility] 10-30-2024 19:12-0400 Respiratory rate 18 /min Barbara Wells DOCUMENT PREPARATION SPECIALIST.HUMAN RESOURCES BENEFITS MANAGER Work Phone: [facility] 10-30-2024 19:12-0400 SaO2% (BldA) [Mass fraction] 98 % Barbara Wells DOCUMENT PREPARATION SPECIALIST.HUMAN RESOURCES BENEFITS MANAGER Work Phone: [facility] 10-30-2024 19:12-0400 Systolic blood pressure 110 mm[Hg] Barbara Wells DOCUMENT PREPARATION SPECIALIST.HUMAN RESOURCES BENEFITS MANAGER Work Phone: [facility] 10-28-2024 19:22-0400 Body mass index (BMI) [Ratio] 29.11 kg/m2 Omaira Praisler-Wood DOCUMENT PREPARATION SPECIALIST.HUMAN RESOURCES BENEFITS MANAGER Work Phone: [facility] 10-28-2024 19:22-0400 Body temperature 97.7 [degF] Omaira Praisler-Wood DOCUMENT PREPARATION SPECIALIST.HUMAN RESOURCES BENEFITS MANAGER Work Phone: [facility] 10-28-2024 19:22-0400 Body weight 89.4 kg Omaira Praisler-Wood DOCUMENT PREPARATION SPECIALIST.HUMAN RESOURCES BENEFITS MANAGER Work Phone: [facility] 10-28-2024 19:22-0400 Diastolic blood pressure 80 mm[Hg] Omaira Praisler-Wood DOCUMENT PREPARATION SPECIALIST.HUMAN RESOURCES BENEFITS MANAGER Work Phone: [facility] 10-28-2024 19:22-0400 Heart rate 93 /min Omaira Praisler-Wood DOCUMENT PREPARATION SPECIALIST.HUMAN RESOURCES BENEFITS MANAGER Work Phone: [facility] 10-28-2024 19:22-0400 Respiratory rate 18 /min Omaira Praisler-Wood DOCUMENT PREPARATION SPECIALIST.HUMAN RESOURCES BENEFITS MANAGER Work Phone: [facility] 10-28-2024 19:22-0400 SaO2% (BldA) [Mass fraction] 98 % Omaira Praisler-Wood DOCUMENT PREPARATION SPECIALIST.HUMAN RESOURCES BENEFITS MANAGER Work Phone: [facility] 10-28-2024 19:22-0400 Systolic blood pressure 104 mm[Hg] Omaira Praisler-Wood DOCUMENT PREPARATION SPECIALIST.HUMAN RESOURCES BENEFITS MANAGER Work Phone: [facility] 09-06-2024 11:11-0400 Body height 175.3 cm Katrina Garcia PA-C Work Phone: [facility] 09-06-2024 11:11-0400 Body mass index (BMI) [Ratio] 28.71 kg/m2 Katrina Garcia PA-C Work Phone: [facility] 09-06-2024 11:11-0400 Body weight 88.2 kg Katrina Garcia PA-C Work Phone: [facility] 09-06-2024 11:11-0400 Diastolic blood pressure 74 mm[Hg] Katrina Garcia PA-C Work Phone: [facility] 09-06-2024 11:11-0400 Heart rate 95 /min Katrina Garcia PA-C Work Phone: [facility] 09-06-2024 11:11-0400 SaO2% (BldA) [Mass fraction] 100 % Katrina Garcia PA-C Work Phone: [facility] 09-06-2024 11:11-0400 Systolic blood pressure 106 mm[Hg] Katrina Garcia PA-C Work Phone: [facility] 08-06-2024 14:08-0400 Body mass index (BMI) [Ratio] 29.58 kg/m2 Edward Huang APRN.HUMAN RESOURCES BENEFITS MANAGER Work Phone: [facility] 08-06-2024 14:08-0400 Body temperature 98.1 [degF] Edward Huang APRN.HUMAN RESOURCES BENEFITS MANAGER Work Phone: [facility] 08-06-2024 14:08-0400 Body weight 88.9 kg Edward Huang APRN.HUMAN RESOURCES BENEFITS MANAGER Work Phone: [facility] 08-06-2024 14:08-0400 Diastolic blood pressure 78 mm[Hg] Edward Huang APRN.HUMAN RESOURCES BENEFITS MANAGER Work Phone: [facility] 08-06-2024 14:08-0400 Heart rate 79 /min Edward Huang APRN.HUMAN RESOURCES BENEFITS MANAGER Work Phone: [facility] 08-06-2024 14:08-0400 Respiratory rate 18 /min Edward Huang APRN.HUMAN RESOURCES BENEFITS MANAGER Work Phone: [facility] 08-06-2024 14:08-0400 SaO2% (BldA) [Mass fraction] 97 % Edward Huang APRN.HUMAN RESOURCES BENEFITS MANAGER Work Phone: [facility] 08-06-2024 14:08-0400 Systolic blood pressure 122 mm[Hg] Edward Huang APRN.CNP Work Phone: [facility] 07-19-2024 16:08-0400 Body mass index (BMI) [Ratio] 29.13 kg/m2 Juan Ramon Huang MD Work Phone: [facility] 07-19-2024 16:08-0400 Body weight 87.54 kg Juan Ramon Huang MD Work Phone: [facility] 07-19-2024 16:08-0400 Diastolic blood pressure 66 mm[Hg] Juan Ramon Huang MD Work Phone: [facility] 07-19-2024 16:08-0400 Systolic blood pressure 122 mm[Hg] Juan Ramon Huang MD Work Phone: [facility] 04-15-2024 11:33-0500 Body mass index (BMI) [Ratio] 29.28 kg/m2 Melissa Amador MD Work Phone: [facility] 04-15-2024 11:33-0500 Body weight 88 kg Melissa Amador MD Work Phone: [facility] 04-15-2024 11:33-0500 Diastolic blood pressure 60 mm[Hg] Melissa Amador MD Work Phone: [facility] 04-15-2024 11:33-0500 Systolic blood pressure 98 mm[Hg] Melissa Amador MD Work Phone: [facility] 03-06-2024 19:36-0500 Body mass index (BMI) [Ratio] 29.32 kg/m2 Hermelinda Athy PA-C Work Phone: [facility] 03-06-2024 19:36-0500 Body temperature 98.49 [degF] Hermelinda Athy PA-C Work Phone: [facility] 03-06-2024 19:36-0500 Body weight 88.1 kg Hermelinda Athy PA-C Work Phone: [facility] 03-06-2024 19:36-0500 Diastolic blood pressure 72 mm[Hg] Hermelinda Athy PA-C Work Phone: [facility] 03-06-2024 19:36-0500 Heart rate 103 /min Hermelinda Athy PA-C Work Phone: [facility] 03-06-2024 19:36-0500 Respiratory rate 18 /min Hermelinda Athy PA-C Work Phone: [facility] 03-06-2024 19:36-0500 SaO2% (BldA) [Mass fraction] 99 % Hermelinda Athy PA-C Work Phone: [facility] 03-06-2024 19:36-0500 Systolic blood pressure 112 mm[Hg] Hermelinda Athy PA-C Work Phone: [facility] 12-28-2023 16:21-0400 Body height 173.4 cm Juan Ramon Huang MD Work Phone: [facility] 12-28-2023 16:21-0400 Body mass index (BMI) [Ratio] 29.28 kg/m2 Juan Ramon Huang MD Work Phone: [facility] 12-28-2023 16:21-0400 Body weight 88 kg Juan Ramon Huang MD Work Phone: [facility] 12-28-2023 16:21-0400 Diastolic blood pressure 74 mm[Hg] Juan Ramon Huang MD Work Phone: [facility] 12-28-2023 16:21-0400 Systolic blood pressure 110 mm[Hg] Juan Ramon Huang MD Work Phone: [facility] 07-31-2023 17:16-0400 Body temperature 98.6 [degF] Hermelinda Athy PA-C Work Phone: [facility] 07-31-2023 17:16-0400 Body weight 86.3 kg Hermelinda Athy PA-C Work Phone: [facility] 07-31-2023 17:16-0400 Diastolic blood pressure 78 mm[Hg] Hermelinda Athy PA-C Work Phone: [facility] 07-31-2023 17:16-0400 Heart rate 104 /min Hermelinda Athy PA-C Work Phone: [facility] 07-31-2023 17:16-0400 Respiratory rate 16 /min Hermelinda Athy PA-C Work Phone: [facility] 07-31-2023 17:16-0400 SaO2% (BldA) [Mass fraction] 98 % Hermelinda Athy PA-C Work Phone: [facility] 07-31-2023 17:16-0400 Systolic blood pressure 110 mm[Hg] Hermelinda Athy PA-C Work Phone: [facility] 12-22-2022 10:46-0400 Body weight 88 kg Juan Ramon Huang MD Work Phone: [facility] 12-22-2022 10:46-0400 Diastolic blood pressure 68 mm[Hg] Juan Ramon Huang MD Work Phone: [facility] 12-22-2022 10:46-0400 Systolic blood pressure 94 mm[Hg] Juan Ramon Huang MD Work Phone: [facility] 11-29-2022 15:11-0400 Body weight 86.09 kg Juan Ramon Huang MD Work Phone: [facility] 11-29-2022 15:11-0400 Diastolic blood pressure 70 mm[Hg] Juan Ramon uHang MD Work Phone: [facility] 11-29-2022 15:11-0400 Systolic blood pressure 100 mm[Hg] Juan Ramon Huang MD Work Phone: [facility] 07-12-2022 09:26-0400 Body height 174 cm Juan Ramon Huang MD Work Phone: [facility] 07-12-2022 09:26-0400 Body weight 93.89 kg Juan Ramon Huang MD Work Phone: [facility] 07-12-2022 09:26-0400 Diastolic blood pressure 70 mm[Hg] Juan Ramon Huang MD Work Phone: [facility] 07-12-2022 09:26-0400 Systolic blood pressure 102 mm[Hg] Juan Ramon Huang MD Work Phone: [facility] 03-28-2022 15:08-0500 Body weight 92.08 kg don Coreashopayal DOCUMENT PREPARATION SPECIALIST.HUMAN RESOURCES BENEFITS MANAGER Work Phone: [facility] 03-28-2022 15:08-0500 Diastolic blood pressure 80 mm[Hg] Ashley Coreashof DOCUMENT PREPARATION SPECIALIST.HUMAN RESOURCES BENEFITS MANAGER Work Phone: [facility] 03-28-2022 15:08-0500 Heart rate 100 /min don Coreashof DOCUMENT PREPARATION SPECIALIST.HUMAN RESOURCES BENEFITS MANAGER Work Phone: [facility] 03-28-2022 15:08-0500 Respiratory rate 16 /min Ashley Coreashopayal DOCUMENT PREPARATION SPECIALIST.HUMAN RESOURCES BENEFITS MANAGER Work Phone: [facility] 03-28-2022 15:08-0500 Systolic blood pressure 100 mm[Hg] Ashley Coreashof DOCUMENT PREPARATION SPECIALIST.HUMAN RESOURCES BENEFITS MANAGER Work Phone: [facility] Encounters Encounter Date Encounter Type Care Provider Facility Start: 11-06-2024 End: 11-06-2024 Patient encounter procedure Freda Avalos DOCUMENT PREPARATION SPECIALIST.HUMAN RESOURCES BENEFITS MANAGER Work Phone: [facility] Comment on above: Nausea vomiting and diarrhea (Primary Dx); Failure of outpatient treatment; Lightheadedness; Gastroenteritis due to norovirus; Dehydration Start: 11-06-2024 End: 11-06-2024 ambulatory FREDA BAILEY Facility:[facility] Start: 10-30-2024 End: 10-30-2024 Patient encounter procedure Barbara Wells DOCUMENT PREPARATION SPECIALIST.HUMAN RESOURCES BENEFITS MANAGER Work Phone: [facility] Comment on above: Vomiting and diarrhe a (Primary Dx) Start: 10-30-2024 End: 10-30-2024 ambulatory BARBARA WELLS Facility:[facility] Start: 10-28-2024 End: 10-28-2024 ambulatory OMAIRA HILLS Facility:[facility] Start: 10-28-2024 End: 10-28-2024 Patient encounter procedure Omaira Hills DOCUMENT PREPARATION SPECIALIST.HUMAN RESOURCES BENEFITS MANAGER Work Phone: [facility] [facility] Comment on above: Nausea and vomiting, unspecified vomiting type (Primary Dx); Acute gastroenteritis Start: 09-06-2024 End: 09-06-2024 Patient encounter procedure Katrina Garcia PA-C Work Phone: [facility] Comment on above: Neck pain (Primary D x); Myofascial pain Start: 09-06-2024 End: 09-06-2024 ambulatory KATRINA GARCIA Facility:[facility] Start: 08-06-2024 End: 08-06-2024 Subsequent hospital visit by physician Xr [facility] [place] Work Phone: Radiology Comment on above: Pain [R52] Start: 08-06-2024 End: 08-06-2024 ambulatory EDWARD HUANG Facility:[facility] Start: 08-06-2024 End: 08-06-2024 Patient encounter procedure Edward Huang APRN.HUMAN RESOURCES BENEFITS MANAGER Work Phone: [facility] Comment on above: Pain (Primary Dx) Start: 07-23-2024 End: 09-22-2024 Follow-up encounter Juan Ramon Huang MD Work Phone: OB/Gynecology Start: 07-19-2024 End: 07-19-2024 ambulatory JUAN RAMON HUANG Facility:[facility] Start: 07-19-2024 End: 07-19-2024 Patient encounter procedure Juan Ramon Huang MD Work Phone: OB/Gynecology Comment on above: Screen for STD (sexu ally transmitted disease) (Primary Dx); Vaginal irritation Start: 04-30-2024 End: 04-30-2024 ambulatory MELISSA AMADOR Facility:[facility] Start: 04-30-2024 End: 04-30-2024 Telephone encounter Melissa Amador MD Work Phone: OB/Gynecology Comment on above: Patient Request (/) Start: 04-22-2024 End: 04-22-2024 ambulatory Melissa Amador MD Work Phone: OB/Gynecology Comment on above: Blood testing Start: 04-18-2024 End: 04-22-2024 Telephone encounter Jenny Barros MD Work Phone: OB/Gynecology Comment on above: Results Start: 04-15-2024 End: 04-15-2024 Telephone encounter Melissa Amador MD Work Phone: OB/Gynecology Comment on above: Patient Question Start: 04-15-2024 End: 04-15-2024 ambulatory MELISSA AMADOR Facility:[facility] Start: 04-15-2024 End: 04-15-2024 Office outpatient visit 15 minutes Melissa Amador MD Work Phone: OB/Gynecology Comment on above: Irregular menses (Pr imary Dx); Encounter for IUD insertion Start: 03-06-2024 End: 03-06-2024 ambulatory EDWARD HUANG Facility:[facility] Start: 03-06-2024 End: 03-06-2024 Patient encounter procedure Hermelinda Wells PA-C Work Phone: [facility] Comment on above: Viral URI (Primary D x) Start: 12-28-2023 End: 12-28-2023 ambulatory JUAN RAMON HUANG Facility:[facility] Start: 12-28-2023 Encounter for gyneco logical examination (general) (routine) without abnormal findings JUAN RAMON HUANG [facility] Start: 12-28-2023 End: 12-28-2023 Patient encounter procedure Juan Ramon Huang MD Work Phone: OB/Gynecology Comment on above: Encounter for gyneco logical examination (general) (routine) without abnormal findings (Primary Dx); Counseling for control regarding intrauterine device (IUD); Screen for STD (sexually transmitted disease) Start: 12-28-2023 End: 12-28-2023 Patient encounter status Juan Ramon Huang MD Work Phone: [facility] Start: 07-31-2023 End: 07-31-2023 Patient encounter procedure Hermelinda Wells PA-C Work Phone: [facility] Comment on above: Viral URI (Primary D x) Start: 12-22-2022 End: 12-22-2022 Patient encounter procedure Juan Ramon Huang MD Work Phone: OB/Gynecology Comment on above: Skin rash (Primary D x) Start: 12-07-2022 ambulatory Juan Ramon Velázquez Work Phone: OB/Gynecology Comment on above: Medicine questions a nd concerns Start: 11-29-2022 End: 11-29-2022 Patient encounter procedure Juan Ramon Huang MD Work Phone: OB/Gynecology Comment on above: Vulvar rash (Primary Dx); Dysuria; Screen for STD (sexually transmitted disease) Start: 08-26-2022 ambulatory Juan Ramon Velázquez Work Phone: OB/Gynecology Comment on above: control recall Start: 08-26-2022 Telephone encounter Angle sparks DOCUMENT PREPARATION SPECIALIST.HUMAN RESOURCES BENEFITS MANAGER Work Phone: OB/Gynecology Comment on above: Patient Question Start: 07-27-2022 End: 07-27-2022 Subsequent hospital visit by physician [facility] Work Phone: Radiology Comment on above: Dysmenorrhea [N94.6] Start: 07-12-2022 End: 07-12-2022 Patient encounter procedure Juan Ramon Huang MD Work Phone: OB/Gynecology Comment on above: Encounter for gyneco logical examination without abnormal finding (Primary Dx); Encounter for screening for malignant neoplasm of cervix; Screen for STD (sexually transmitted disease); Dysmenorrhea; Dysuria; Pelvic floor tension Start: 07-12-2022 End: 07-12-2022 Patient encounter status Jaun Ramon Huang MD Work Phone: OB/Gynecology Start: 03-28-2022 End: 03-28-2022 Patient encounter procedure Ashley Torres APRN.HUMAN RESOURCES BENEFITS MANAGER Work Phone: [facility] Comment on above: Bacterial sinusitis (Primary Dx) Start: 11-21-2020 End: 11-21-2020 Subsequent hospital visit by physician [facility] Work Phone: Radiology Comment on above: Cough [R05] Procedures Date Procedure Procedure Detail Performing Clinician Start: 08-06-2024 Radex spine cervical 4 or 5 views Edward Huang APRN.HUMAN RESOURCES BENEFITS MANAGER Work Phone: Start: 07-27-2022 Us pelvic nonobstetr ic image dcmtn limited/f/u Juan Ramon Huang MD Work Phone: Start: 07-12-2022 Urnls dip stick/tabl et rgnt auto w/o microscopy Juan Ramon Huang MD Work Phone: Start: 11-21-2020 Radiologic exam ches t 2 views Barbara Wells APRN.HUMAN RESOURCES BENEFITS MANAGER Work Phone: Plan of Treatment Date Care Activity Detail Author Start: 07-12-2025 PAP TESTING PAP TESTING [facility] Start: 07-12-2025 Screening for malign ant neoplasm of cervix [facility] Start: 12-23-2024 Influenza vaccination C [facility] Start: 12-16-2024 End: 12-16-2024 Patient encounter procedure 12/16/2024 5:00 PM EDT Office Visit [facility] [address], [place] [id number] Tanya Fishman MD [address], [place] [address] New Patient, [facility] Comment on above: New Patient, [facility] Start: 04-30-2024 End: 04-30-2024 Patient encounter procedure 04/30/2024 3:20 PM EST Office Visit OB/Gynecology [address] [place], [place] [id number] Melissa Amador MD [address] [place], [place] [id number] Inset IUD OB/Gynecology Comment on above: Inset IUD Start: 04-30-2024 End: 07-30-2024 Choriogonadotropin.beta subunit [Units/volume] in Serum or Plasma HCG QUANTITATIVE Lab Routine Irregular menses Expected: 04/30/2024, Expires: 07/30/2024 [facility] Work Phone: Comment on above: Expected: 04/30/2024 , Expires: 07/30/2024 Start: 04-15-2024 End: 07-15-2024 CBC W Auto Differential panel - Blood COMPLETE BLOOD COUNT AND DIFFERENTIAL Lab Routine Irregular menses Expected: 04/15/2024, Expires: 07/15/2024 [facility] Work Phone: Comment on above: Expected: 04/15/2024 , Expires: 07/15/2024 Start: 04-15-2024 End: 07-15-2024 Choriogonadotropin.beta subunit [Units/volume] in Serum or Plasma [facility] Comment on above: Expected: 04/15/2024 , Expires: 07/15/2024 Start: 04-15-2024 End: 07-15-2024 Magnesium [Mass/volume] in Serum or Plasma MAGNESIUM Lab Routine Irregular menses Expected: 04/15/2024, Expires: 07/15/2024 [facility] Comment on above: Expected: 04/15/2024 , Expires: 07/15/2024 Start: 04-15-2024 End: 07-15-2024 TSH W/REFLEX FT4 [facility] Work Phone: Comment on above: Expected: 04/15/2024 , Expires: 07/15/2024 Start: 12-24-2023 Covid-19 Vaccine () Covid-19 Vaccine () [facility] Start: 12-24-2023 Covid-19 Vaccine ( season) Covid-19 Vaccine () [facility] Start: 12-24-2023 Influenza vaccination C [facility] Start: 07-13-2023 CHLAMYDIA SCREENING () CHLAMYDIA SCREENING () [facility] Start: 07-13-2023 GC (GONORRHEA) SCREE JOSE ALBERTO (18) GC (GONORRHEA) SCREENING () [facility] Start: 04-24-2023 Behavioral Health Screening Behavioral Health Screening [facility] Start: 03-05-2023 PAP TESTING PAP TESTING [facility] Start: 12-23-2022 Covid-19 Vaccine ( season) Covid-19 Vaccine () [facility] Start: 12-23-2022 Influenza vaccination C [facility] Start: 11-29-2022 End: 01-29-2023 Hepatitis B virus surface Ag [Presence] in Serum [facility] Work Phone: Comment on above: Expected: 11/29/2022 , Expires: 01/29/2023 Start: 11-29-2022 End: 01-29-2023 Hepatitis C virus Ab [Presence] in Serum [facility] Work Phone: Comment on above: Expected: 11/29/2022 , Expires: 01/29/2023 Start: 11-29-2022 End: 01-29-2023 HIV 1+2 Ab [Presence] in Serum or Plasma by Immunoassay [facility] Work Phone: Comment on above: Expected: 11/29/2022 , Expires: 01/29/2023 Start: 11-29-2022 End: 01-29-2023 SYPHILIS TOTAL W/REFLEX [facility] Work Phone: Comment on above: Expected: 11/29/2022 , Expires: 01/29/2023 Start: 04-24-2022 DEPRESSION ASSESSMENT DEPRESSION ASS [facility] Start: 12-23-2021 Influenza vaccination INFLUENZA (#1) [facility] Start: 07-12-2021 Urine microalbumin profile [facility] Start: 06-18-2021 CHLAMYDIA SCREENING (18-24) CHLAMYDIA SCREENING (18-24) [facility] Start: 06-18-2021 GC (GONORRHEA) SCREE JOSE ALBERTO (18-24) GC (GONORRHEA) SCREENING (18-24) [facility] Start: 04-24-2021 DEPRESSION ASSESSMENT DEPRESSION ASS ESSMENT [facility] Start: 2017 Pneumococcal vaccination Pneum ococcal Vaccine (1 of 2 - PCV) [facility] Start: 2016 Anxiety Screening Anxiety Screening [facility] Start: 2016 Depression Screening Depression Scre ening [facility] Start: 2016 HIV SCREENING HIV SCREENING [facility] Start: 2014 Meningococcal B Vacc ine: Consider Based On Risk (1 of 2 - Patient Seeks Protection) Meningococcal B Vaccine: Consider Based On Risk (1 of 2 - Patient Seeks Protection) [facility] Start: 2014 MENINGOCOCCAL B: Consider based on risk (1 of 2 - Patient Seeks Protection) MENINGOCOCCAL B: Consider based on risk (1 of 2 - Patient Seeks Protection) [facility] Start: 2012 PEDS TO ADULT TRANSI TION ANNUAL ASSESSMENT PEDS TO ADULT TRANSITION ANNUAL ASSESSMENT [facility] Start: 2010 PEDS TO ADULT TRANSI TION INITIAL DISCUSSION PEDS TO ADULT TRANSITION INITIAL DISCUSSION [facility] Start: 2008 MENINGOCOCCAL B: Consider based on risk (1 of 2 - Risk Bexsero 2-dose series) MENINGOCOCCAL B: Consider based on risk (1 of 2 - Risk Bexsero 2-dose series) [facility] Start: 06-07-1999 COVID-19 VACCINE (#1) COVID-19 VACCI NE (#1) [facility] Bacteria identified in Urine by Culture URINE CULTURE Microbiology Routine Dysuria 07/12/2022 10:27 AM EDT [facility] Work Phone: Bacteria identified in Urine by Culture URINE CULTURE Microbiology Routine Dysuria 11/29/2022 3:45 PM EDT [facility] Work Phone: BACTERIAL VAGINOSIS NAAT BACTERI AL VAGINOSIS NAAT Lab Routine Screen for STD (sexually transmitted disease) 07/19/2024 4:42 PM EDT [facility] Biopsy vulva/perineu m 1 lesion spx BIOPSY OF VULVA Procedures Routine Vulvar rash Ordered: 11/29/2022 [facility] Work Phone: Comment on above: Ordered: 11/29/2022 ANDREW/TRICHOMONAS NAAT ANDREW /TRICHOMONAS NAAT Lab Routine Screen for STD (sexually transmitted disease) 07/19/2024 4:42 PM EDT [facility] Chlamydia trachomatis+Neisseria gonorrhoeae DNA [Presence] in Unspecified specimen by SANTINO with probe detection GC/CHLAMYDIA DNA DET Lab Routine Screen for STD (sexually transmitted disease) 07/12/2022 10:27 AM EDT [facility] Work Phone: Chlamydia trachomatis+Neisseria gonorrhoeae DNA [Presence] in Unspecified specimen by SANTINO with probe detection GONORRHEA/CHLAMYDIA NAAT Lab Routine Screen for STD (sexually transmitted disease) Ordered: 12/28/2023 [facility] Comment on above: Ordered: 12/28/2023 Chlamydia trachomatis+Neisseria gonorrhoeae DNA [Presence] in Unspecified specimen by SANTINO with probe detection GONORRHEA/CHLAMYDIA NAAT Lab Routine Screen for STD (sexually transmitted disease) 07/19/2024 4:42 PM [facility] Work Phone: COVID & INFLUENZA A/ B & RSV NAAT, ROUTINE COVID & INFLUENZA A/B & RSV NAAT, ROUTINE Microbiology Routine Viral URI Ordered: 07/31/2023 [facility] Work Phone: Comment on above: Ordered: 07/31/2023 Insertion intrauteri ne device iud INSERT INTRAUTERINE DEVICE Procedures Routine Counseling for control regarding intrauterine device (IUD) Ordered: 12/28/2023 [facility] Work Phone: Comment on above: Ordered: 12/28/2023 Insertion intrauteri ne device iud INSERT INTRAUTERINE DEVICE Procedures Routine Encounter for IUD insertion Ordered: 04/15/2024 [facility] Comment on above: Ordered: 04/15/2024 PAP TEST PAP TEST Lab [facility] Encounter for screening for malignant neoplasm of cervix 07/12/2022 10:27 AM [facility] Work Phone: SURGICAL PATHOLOGY SURGICAL PATH OLOGY Lab Routine Skin rash 12/22/2022 11:25 AM [facility] Work Phone: T VAGINALIS AMPLIFICATION T VAGINALIS AMPLIFICATION Lab Routine Screen for STD (sexually transmitted disease) 07/12/2022 10:27 AM [facility] Work Phone: TRICHOMONAS VAGINALI S NAAT TRICHOMONAS VAGINALIS NAAT Lab Routine Screen for STD (sexually transmitted disease) Ordered: 12/28/2023 [facility] Comment on above: Ordered: 12/28/2023 End: 08-11-2023 Us pelvic nonobstetric image dcmtn limited/f/u US FEMALE PELVIS TRANSABD LTD Radiology Routine Dysmenorrhea 1 Occurrences starting 07/12/2022 until 08/11/2023 [facility] Work Phone: Comment on above: 1 Occurrences starti ng 07/12/2022 until 08/11/2023 End: 08-11-2023 Us transvaginal US FEMALE PELVIS TRANSVAG Radiology Routine Dysmenorrhea 1 Occurrences starting 07/12/2022 until 08/11/2023 [facility] Work Phone: Comment on above: 1 Occurrences starti ng 07/12/2022 until 08/11/2023 [facility] Immunizations Immunization Date Immunization Notes Care Provider Matt schneider 03-11-2020 influenza virus vacc ine, unspecified formulation Us 2 Work Phone: [facility] 11-21-2018 Human Papillomavirus 9-valent vaccine Ashley Torres DOCUMENT PREPARATION SPECIALIST.HUMAN RESOURCES BENEFITS MANAGER Work Phone: [facility] 07-26-2016 Human Papillomavirus 9-valent vaccine Ashley Torres DOCUMENT PREPARATION SPECIALIST.HUMAN RESOURCES BENEFITS MANAGER Work Phone: [facility] 05-02-2016 Human Papillomavirus 9-valent vaccine Ashley Torres DOCUMENT PREPARATION SPECIALIST.HUMAN RESOURCES BENEFITS MANAGER Work Phone: [facility] 05-02-2016 influenza, injectabl e, quadrivalent, contains preservative Ashley Torres DOCUMENT PREPARATION SPECIALIST.HUMAN RESOURCES BENEFITS MANAGER Work Phone: [facility] 05-02-2016 meningococcal polysaccharide (groups A, C, Y and W-135) diphtheria toxoid conjugate vaccine (MCV4P) Ashley Torres DOCUMENT PREPARATION SPECIALIST.HUMAN RESOURCES BENEFITS MANAGER Work Phone: [facility] 07-13-2011 Meningococcal, MCV4, unspecified conjugate formulation(groups A, C, Y and W-135) Ashley Torres DOCUMENT PREPARATION SPECIALIST.HUMAN RESOURCES BENEFITS MANAGER Work Phone: [facility] Work Phone: 07-13-2011 tetanus toxoid, redu hitesh diphtheria toxoid, and acellular pertussis vaccine, adsorbed Ashley Torres DOCUMENT PREPARATION SPECIALIST.HUMAN RESOURCES BENEFITS MANAGER Work Phone: [facility] Work Phone: 07-13-2011 varicella virus vaccine Ashl magi Torres DOCUMENT PREPARATION SPECIALIST.HUMAN RESOURCES BENEFITS MANAGER Work Phone: [facility] Work Phone: 02-13-2009 influenza virus vacc ine, live, attenuated, for intranasal use Ashley Torres DOCUMENT PREPARATION SPECIALIST.[facility] Work Phone: [facility] Work Phone: 12-11-2003 diphtheria, tetanus toxoids and acellular pertussis vaccine Ashley Torres DOCUMENT PREPARATION SPECIALIST.[facility] Work Phone: [facility] Work Phone: 12-11-2003 measles, mumps and rubella virus vaccine [facility] DOCUMENT PREPARATION SPECIALIST.HUMAN RESOURCES BENEFITS MANAGER Work Phone: [facility] Work Phone: 12-11-2003 poliovirus vaccine, inactivated [facility] DOCUMENT PREPARATION SPECIALIST.[facility] Work Phone: [facility] Work Phone: 03-24-2003 influenza virus vacc ine, unspecified formulation don Torres DOCUMENT PREPARATION SPECIALIST.[facility] Work Phone: [facility] Work Phone: 06-23-2000 pneumococcal conjuga te vaccine, 7 valent [facility] DOCUMENT PREPARATION SPECIALIST.[facility] Work Phone: [facility] Work Phone: 06-23-2000 poliovirus vaccine, inactivated Ashley Pak DOCUMENT PREPARATION SPECIALIST.[facility] Work Phone: [facility] Work Phone: 03-17-2000 diphtheria, tetanus toxoids and acellular pertussis vaccine don Coreaspayal DOCUMENT PREPARATION SPECIALIST.[facility] Work Phone: [facility] Work Phone: 03-17-2000 haemophilus influenz ae type b vaccine, HbOC conjugate Flora Josspayal DOCUMENT PREPARATION SPECIALIST.HUMAN RESOURCES BENEFITS MANAGER Work Phone: [facility] Work Phone: 02-15-2000 pneumococcal conjuga te vaccine, 7 valent [facility] DOCUMENT PREPARATION SPECIALIST.HUMAN RESOURCES BENEFITS MANAGER Work Phone: [facility] Work Phone: 02-15-2000 varicella virus vaccine Ashutosh magi Torres DOCUMENT PREPARATION SPECIALIST.HUMAN RESOURCES BENEFITS MANAGER Work Phone: [facility] Work Phone: 12-22-1999 hepatitis B vaccine, pediatric or pediatric/adolescent dosage Tannhof DOCUMENT PREPARATION SPECIALIST.[facility] Work Phone: [facility] Work Phone: 12-22-1999 measles, mumps and rubella virus vaccine Tannhof DOCUMENT PREPARATION SPECIALIST.[facility] Work Phone: [facility] Work Phone: 06-21-1999 diphtheria, tetanus toxoids and acellular pertussis vaccine Tannhof DOCUMENT PREPARATION SPECIALIST.[facility] Work Phone: [facility] Work Phone: 06-21-1999 haemophilus influenz ae type b vaccine, HbOC conjugate Tannhof DOCUMENT PREPARATION SPECIALIST.[facility] Work Phone: [facility] Work Phone: 06-21-1999 hepatitis B vaccine, pediatric or pediatric/adolescent dosage Tannhof DOCUMENT PREPARATION SPECIALIST.[facility] Work Phone: [facility] Work Phone: 04-12-1999 diphtheria, tetanus toxoids and acellular pertussis vaccine Tannhof DOCUMENT PREPARATION SPECIALIST.[facility] Work Phone: [facility] Work Phone: 04-12-1999 haemophilus influenz ae type b vaccine, HbOC conjugate Tannhof DOCUMENT PREPARATION SPECIALIST.[facility] Work Phone: [facility] Work Phone: 04-12-1999 poliovirus vaccine, inactivated [facility] DOCUMENT PREPARATION SPECIALIST.[facility] Work Phone: [facility] Work Phone: 02-08-1999 diphtheria, tetanus toxoids and acellular pertussis vaccine Tannhof DOCUMENT PREPARATION SPECIALIST.[facility] Work Phone: [facility] Work Phone: 02-08-1999 haemophilus influenz ae type b vaccine, HbOC conjugate Tannhof DOCUMENT PREPARATION SPECIALIST.[facility] Work Phone: [facility] Work Phone: 02-08-1999 hepatitis B vaccine, pediatric or pediatric/adolescent dosage Jossjackpayal DOCUMENT PREPARATION SPECIALIST.HUMAN RESOURCES BENEFITS MANAGER Work Phone: [facility] Work Phone: 02-08-1999 poliovirus vaccine, inactivated Ashley Torres DOCUMENT PREPARATION SPECIALIST.HUMAN RESOURCES BENEFITS MANAGER Work Phone: [facility] Work Phone: Payers Date Payer Category Payer Unknown [id number] 2020 Private Health Insurance [id number] 2020 Unknown [id number] Social History Date Type Detail Facility Start: 03-28-2022 Tobacco smoking stat [facility] Never smoked tobacco [facility] Start: 03-28-2022 End: 09-06-2024 Tobacco use and exposure Smokeless tobacco non-user [facility] Start: 03-28-2022 End: 09-06-2024 Alcohol intake Current drinker of alcohol (finding) [facility] Start: 1998 Sex Assigned At Not on file C [facility] Start: 03-18-2022 End: 03-28-2022 Exposure to SARS-CoV-2 (event) Not sure [facility] Start: 1998 Sex Assigned At Female C [facility] Start: 11-29-2022 End: 09-06-2024 History of Social function [facility] Start: 11-29-2022 End: 09-06-2024 Tobacco use panel [facility] National Score (1-10 0), lower number is lower risk 48 [facility] Start: 06-28-2022 Gender identity Identifies as female gender (finding) [facility] Start: 12-28-2023 [facility] Start: 10-22-2020 End: 11-21-2020 Exposure to SARS-CoV-2 (event) Unable to assess [facility] Start: 09-06-2024 [facility] smoker [facility] Start: 09-06-2024 Tobacco Comment vaping [facility] Functional Status Date Assessment Result Facility 11-27-2014 Are you deaf, or do you have serious difficulty hearing No 11/27/2014 3:57 PM EDT Blossom Gil RN No [facility] 11-27-2014 Are you blind, or do you have serious difficulty seeing, even when wearing glasses No 11/27/2014 3:57 PM EDT Blossom Gil RN No [facility] 11-27-2014 Do you have serious difficulty walking or climbing stairs No 11/27/2014 3:57 PM EDT Blossom Gil RN No [facility] 11-27-2014 Do you have difficul ty dressing or bathing No 11/27/2014 3:57 PM EDT Blossom Gil RN No [facility] 11-27-2014 Because of a physica l, mental, or emotional condition, do you have difficulty doing errands alone such as visiting a physician's office or shopping No 11/27/2014 3:57 PM EDT Blossom Gil RN No [facility] Mental Status Date Assessment Result Facility 11-27-2014 Because of a physica l, mental, or emotional condition, do you have serious difficulty concentrating, remembering, or making decisions No 11/27/2014 3:57 PM EDT Blossom Gil RN No [facility] Clinical Notes 11-21-2020 to 11-06-2024 Freda Avalos APRN.HUMAN RESOURCES BENEFITS MANAGER - 11/06/2024 4:36 PM EDTBarbara Wells APRN.HUMAN RESOURCES BENEFITS MANAGER - 10/30/2024 7:16 PM EDTPatient InstructionsOmaira Hills APRN.HUMAN RESOURCES BENEFITS MANAGER - 10/28/2024 7:33 PM EDTPatient Instructions Note Date & Type Note Facility 11-06-2024 Note HNO ID: [id number] Author: FREDA AVALOS APRN.[facility] Service: ? Author Type: Nurse Practitioner Type: Progress Notes Filed: 11/06/2024 16:39 Note Text: [facility] Lorenzo Jamil Renee is a 23 year old female. Patient presents with: Nausea AND Vomiting: X 1.5 weeks HPI Nausea and Vomiting: - Onset 10 days ago with initial symptoms of emesis, fever, and diaphoresis. - Initially suspected food poisoning; later diagnosed with norovirus. - Unable to retain oral intake; experienced both emesis and diarrhea. - Attempted to rest over the weekend; minimal oral intake. - Returned to work yesterday, experienced lightheadedness and nausea, followed by dry heaving; sent home from work. - Denies significant abdominal pain; reports persistent nausea. - Boyfriend is currently experiencing similar symptoms. PAST MEDICAL HISTORY Diagnosis Date Menarche 10/24/2012 Migraine without aura PMH - PAST MEDICAL HISTORY OF 11/2003 normal color vision Rheumatoid arthritis Rheumatology PAST SURGICAL HISTORY Procedure Laterality Date TONSILLECTOMY AND ADENOIDECTOMY ALLERGIES Penicillins MEDICATIONS Ferrous Sulfate 27 mg iron tab Take by mouth. MAGNESIUM ORAL Take by mouth. Lactobacillus acidophilus (PROBIOTIC ORAL) Take by mouth. THEANINE ORAL Take by mouth. ondansetron orally disintegrating (ZOFRAN ODT) 4 mg disintegrating tablet Take 1 tablet by mouth every 8 hours as needed for nausea/vomiting. (Patient not taking: Reported on 11/06/2024) ASHWAGANDHA EXTRACT ORAL Take by mouth. (Patient not taking: Reported on 07/19/2024) miSOPROStol (CYTOTEC) [address] 2 tabs per vagina the night before and morning of procedure (Patient not taking: Reported on 07/19/2024) fluticasone (FLONASE) 50 mcg/actuation nasal spray Use 2 Sprays in each nostril once daily. Rinse mouth after use. (Patient not taking: Reported on 12/28/2023) FAMILY HISTORY Problem Relation Age of Onset Heart Father irregular heart beat Hypertension Paternal Grandfather Diabetes Paternal Grandfather Hypertension Maternal Grandmother Heart Maternal Grandmother Social History Tobacco Use Smoking status: Some Days Smokeless tobacco: Never Tobacco comments: vaping Vaping Use Vaping status: current everyday user Substances: Nicotine, Flavoring Devices: Disposable Substance Use Topics Alcohol use: Yes Comment: occasional Drug use: No Review of Systems Constitutional: (+) malaise, (+) decreased appetite Ears/Nose/Mouth/Throat: (-) nasal congestion, (-) rhinorrhea Respiratory: (-) cough Gastrointestinal: (+) nausea, (+) vomiting, (-) abdominal pain Neurological: (+) lightheadedness Objective BP 100/72 Pulse 95 Temp 36.9 ?C (98.4 ?F) Resp 20 Wt 86.7 kg (191 lb 2.2 oz) LMP 06/26/2024 (Approximate) SpO2 95% BMI 28.23 kg/m? Physical Exam Vitals and nursing note reviewed. Exam conducted with a checker present. Constitutional: Appearance: Normal appearance. HENT: Head: Normocephalic and atraumatic. Cardiovascular: Rate and Rhythm: Normal rate and regular rhythm. Pulmonary: Effort: Pulmonary effort is normal. No respiratory distress. Breath sounds: Normal breath sounds. Abdominal: General: Abdomen is flat. Palpations: Abdomen is soft. Skin: Capillary Refill: Capillary refill takes less than 2 seconds. Neurological: General: No focal deficit present. Mental Status: She is alert and oriented to person, place, and time. Psychiatric: Mood and Affect: Mood normal. Behavior: Behavior normal. { 1. Nausea vomiting and diarrhea (R11.2) 2. Failure of outpatient treatment (Z78.9) 3. Lightheadedness (R42) 4. Gastroenteritis due to norovirus (A08.11) 5. Dehydration (E86.0) - Persistent symptoms for 10 days, including nausea, vomiting, diarrhea, and lightheadedness; outpatient treatment with Zofran was ineffective. Patient seen here 10/28/24 Patient seen here 10/30/24 - Suspected dehydration due to prolonged illness and inability to maintain oral intake. - Referred to the emergency room for further evaluation, including laboratory work and potential IV fluid administration. - Discussed concerns about possible renal implications due to dehydration. and Recording using rollApp software for draft documentation of the visit was discussed with the patient/authorized herbicide service sales representative; all questions welcomed and answered. Patient/authorized herbicide service sales representative agreed to proceed MDM Procedures [facility] 11-06-2024 History of Presen t illness Narrative [facility] Jamil Renee is a 23 year old female. Patient presents with: Nausea & Vomiting: X 1.5 weeks HPI Nausea and Vomiting: - Onset 10 days ago with initial symptoms of emesis, fever, and diaphoresis. - Initially suspected food poisoning; later diagnosed with norovirus. - Unable to retain oral intake; experienced both emesis and diarrhea. - Attempted to rest over the weekend; minimal oral intake. - Returned to work yesterday, experienced lightheadedness and nausea, followed by dry heaving; sent home from work. - Denies significant abdominal pain; reports persistent nausea. - Boyfriend is currently experiencing similar symptoms. PAST MEDICAL HISTORY Diagnosis Date Menarche 10/24/2012 Migraine without aura PMH - PAST MEDICAL HISTORY OF 11/2003 normal color vision Rheumatoid arthritis Rheumatology PAST SURGICAL HISTORY Procedure Laterality Date TONSILLECTOMY & ADENOIDECTOMY <AGE 10 ALLERGIES Penicillins MEDICATIONS Ferrous Sulfate 27 mg iron tab Take by mouth. MAGNESIUM ORAL Take by mouth. Lactobacillus acidophilus (PROBIOTIC ORAL) Take by mouth. THEANINE ORAL Take by mouth. ondansetron orally disintegrating (ZOFRAN ODT) 4 mg disintegrating tablet Take 1 tablet by mouth every 8 hours as needed for nausea/vomiting. (Patient not taking: Reported on 11/06/2024) ASHWAGANDHA EXTRACT ORAL Take by mouth. (Patient not taking: Reported on 07/19/2024) miSOPROStol (CYTOTEC) [address] 2 tabs per vagina the night before and morning of procedure (Patient not taking: Reported on 07/19/2024) fluticasone (FLONASE) 50 mcg/actuation nasal spray Use 2 Sprays in each nostril once daily. Rinse mouth after use. (Patient not taking: Reported on 12/28/2023) FAMILY HISTORY Problem Relation Age of Onset Heart Father irregular heart beat Hypertension Paternal Grandfather Diabetes Paternal Grandfather Hypertension Maternal Grandmother Heart Maternal Grandmother Social History Tobacco Use Smoking status: Some Days Smokeless tobacco: Never Tobacco comments: vaping Vaping Use Vaping status: current everyday user Substances: Nicotine, Flavoring Devices: Disposable Substance Use Topics Alcohol use: Yes Comment: occasional Drug use: No Review of Systems Constitutional: (+) malaise, (+) decreased appetite Ears/Nose/Mouth/Throat: (-) nasal congestion, (-) rhinorrhea Respiratory: (-) cough Gastrointestinal: (+) nausea, (+) vomiting, (-) abdominal pain Neurological: (+) lightheadedness Objective BP 100/72 Pulse 95 Temp 36.9 C (98.4 F) Resp 20 Wt 86.7 kg (191 lb 2.2 oz) LMP 06/26/2024 (Approximate) SpO2 95% BMI 28.23 kg/m Physical Exam Vitals and nursing note reviewed. Exam conducted with a checker present. Constitutional: Appearance: Normal appearance. HENT: Head: Normocephalic and atraumatic. Cardiovascular: Rate and Rhythm: Normal rate and regular rhythm. Pulmonary: Effort: Pulmonary effort is normal. No respiratory distress. Breath sounds: Normal breath sounds. Abdominal: General: Abdomen is flat. Palpations: Abdomen is soft. Skin: Capillary Refill: Capillary refill takes less than 2 seconds. Neurological: General: No focal deficit present. Mental Status: She is alert and oriented to person, place, and time. Psychiatric: Mood and Affect: Mood normal. Behavior: Behavior normal. { 1. Nausea vomiting and diarrhea (R11.2) 2. Failure of outpatient treatment (Z78.9) 3. Lightheadedness (R42) 4. Gastroenteritis due to norovirus (A08.11) 5. Dehydration (E86.0) - Persistent symptoms for 10 days, including nausea, vomiting, diarrhea, and lightheadedness; outpatient treatment with Zofran was ineffective. Patient seen here 10/28/24 Patient seen here 10/30/24 - Suspected dehydration due to prolonged illness and inability to maintain oral intake. - Referred to the emergency room for further evaluation, including laboratory work and potential IV fluid administration. - Discussed concerns about possible renal implications due to dehydration. and Recording using rollApp software for draft documentation of the visit was discussed with the patient/authorized herbicide service sales representative; all questions welcomed and answered. Patient/authorized herbicide service sales representative agreed to proceed MDM Procedures documented in this encounter [facility] 10-30-2024 Note HNO ID: [id number] Author: BARBARA WELLS APRN.HUMAN RESOURCES BENEFITS MANAGER Service: ? Author Type: Nurse Practitioner Type: Progress Notes Filed: 10/30/2024 19:34 Note Text: [facility] Subjective HPI HPI Jamil Renee is a 23 year old female who presents today for CC of vomiting, diarrhea, nausea. This started 3 days ago. Has tried otc medication for relief. Symptoms are worsened by nothing. Seen few days ago, has not taken zofran for relief. Tolerating fluids. Last void just before this visit. Denies possibility of being . .Patient presents with: Vomiting: Vomiting and diarrhea x 3 days PAST MEDICAL HISTORY Diagnosis Date Menarche 10/24/2012 Migraine without aura PMH - PAST MEDICAL HISTORY OF 11/2003 normal color vision Rheumatoid arthritis Rheumatology PAST SURGICAL HISTORY Procedure Laterality Date TONSILLECTOMY AND ADENOIDECTOMY ALLERGIES Penicillins MEDICATIONS ondansetron orally disintegrating (ZOFRAN ODT) 4 mg disintegrating tablet Take 1 tablet by mouth every 8 hours as needed for nausea/vomiting. Ferrous Sulfate 27 mg iron tab Take by mouth. MAGNESIUM ORAL Take by mouth. Lactobacillus acidophilus (PROBIOTIC ORAL) Take by mouth. THEANINE ORAL Take by mouth. ASHWAGANDHA EXTRACT ORAL Take by mouth. (Patient not taking: Reported on 07/19/2024) miSOPROStol (CYTOTEC) [address] 2 tabs per vagina the night before and morning of procedure (Patient not taking: Reported on 07/19/2024) fluticasone (FLONASE) 50 mcg/actuation nasal spray Use 2 Sprays in each nostril once daily. Rinse mouth after use. (Patient not taking: Reported on 12/28/2023) FAMILY HISTORY Problem Relation Age of Onset Heart Father irregular heart beat Hypertension Paternal Grandfather Diabetes Paternal Grandfather Hypertension Maternal Grandmother Heart Maternal Grandmother Social History Tobacco Use Smoking status: Some Days Smokeless tobacco: Never Tobacco comments: vaping Vaping Use Vaping status: current everyday user Substances: Nicotine, Flavoring Devices: Disposable Substance Use Topics Alcohol use: Yes Comment: occasional Drug use: No Review of Systems Constitutional: Negative for fever. Gastrointestinal: Positive for diarrhea, nausea and vomiting. Negative for abdominal pain. Objective BP 110/78 Pulse 89 Temp 36.6 ?C (97.8 ?F) (Tympanic) Resp 18 Wt 87.5 kg (192 lb 14.4 oz) LMP 06/26/2024 (Approximate) SpO2 98% BMI 28.49 kg/m? Physical Exam Constitutional: General: She is not in acute distress. Appearance: Normal appearance. She is not toxic-appearing. Cardiovascular: Rate and Rhythm: Normal rate and regular rhythm. Heart sounds: Normal heart sounds. Pulmonary: Effort: Pulmonary effort is normal. Breath sounds: Normal breath sounds. Abdominal: General: Bowel sounds are normal. Palpations: Abdomen is soft. Tenderness: There is generalized abdominal tenderness (achy). There is no right CVA tenderness or left CVA tenderness. Skin: General: Skin is warm and dry. {ASSESSMENT/PLAN: 1. Vomiting and diarrhea - ICD9: 787.03, 787.91, ICD10: R11.10, R19.7 ASSESSMENT/PLAN: -BRAT Diet (Bananas, Rice, Apple Sauce, [place]) -If no better in 3-5 days follow up back in clinic or with primary care provider -Follow up in the ER with signs of dehydration, increasing abdominal pain, high fever, or blood in vomit or stool. Barbara Wells APRN.HUMAN RESOURCES BENEFITS MANAGER History and Record Review External record(s) reviewed: prior outpatient record. Disposition The patient was discharged. Procedures [facility] 10-30-2024 History of Presen t illness Narrative [facility] Subjective HPI HPI Jamil Renee is a 23 year old female who presents today for CC of vomiting, diarrhea, nausea. This started 3 days ago. Has tried otc medication for relief. Symptoms are worsened by nothing. Seen few days ago, has not taken zofran for relief. Tolerating fluids. Last void just before this visit. Denies possibility of being . .Patient presents with: Vomiting: Vomiting and diarrhea x 3 days PAST MEDICAL HISTORY Diagnosis Date Menarche 10/24/2012 Migraine without aura PMH - PAST MEDICAL HISTORY OF 11/2003 normal color vision Rheumatoid arthritis Rheumatology PAST SURGICAL HISTORY Procedure Laterality Date TONSILLECTOMY & ADENOIDECTOMY <AGE 10 ALLERGIES Penicillins MEDICATIONS ondansetron orally disintegrating (ZOFRAN ODT) 4 mg disintegrating tablet Take 1 tablet by mouth every 8 hours as needed for nausea/vomiting. Ferrous Sulfate 27 mg iron tab Take by mouth. MAGNESIUM ORAL Take by mouth. Lactobacillus acidophilus (PROBIOTIC ORAL) Take by mouth. THEANINE ORAL Take by mouth. ASHWAGANDHA EXTRACT ORAL Take by mouth. (Patient not taking: Reported on 07/19/2024) miSOPROStol (CYTOTEC) [address] 2 tabs per vagina the night before and morning of procedure (Patient not taking: Reported on 07/19/2024) fluticasone (FLONASE) 50 mcg/actuation nasal spray Use 2 Sprays in each nostril once daily. Rinse mouth after use. (Patient not taking: Reported on 12/28/2023) FAMILY HISTORY Problem Relation Age of Onset Heart Father irregular heart beat Hypertension Paternal Grandfather Diabetes Paternal Grandfather Hypertension Maternal Grandmother Heart Maternal Grandmother Social History Tobacco Use Smoking status: Some Days Smokeless tobacco: Never Tobacco comments: vaping Vaping Use Vaping status: current everyday user Substances: Nicotine, Flavoring Devices: Disposable Substance Use Topics Alcohol use: Yes Comment: occasional Drug use: No Review of Systems Constitutional: Negative for fever. Gastrointestinal: Positive for diarrhea, nausea and vomiting. Negative for abdominal pain. Objective BP 110/78 Pulse 89 Temp 36.6 C (97.8 F) (Tympanic) Resp 18 Wt 87.5 kg (192 lb 14.4 oz) LMP 06/26/2024 (Approximate) SpO2 98% BMI 28.49 kg/m Physical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 Thoracic Kyphosis: Increased Skin: Normal-no rashes, bruises, lesions, or signs of localized trauma., Skin color, texture and turgor normal. Paraspinal atrophy: No Range of Motion: Flexion: 0 fingerbreadths from chin to chest Pain: No Extension: within normal limits Rotation: Right: within normal limits Left: within normal limits Motion is completely normal although she does have pain at the end of motion with extension and lateral rotation PALPATION TENDERNESS: Moderate tenderness at: cervical spine, shoulders/trapezius, and thoracic spine Hyperesthesia present: No Regional symptoms present: No Increased pain with axial loading: No Distraction: Normal Pain responses: appropriate NEUROLOGIC EXAM: Requires verbal cues to minimize cog-wheel or give-way resistance: No MOTOR: Deltoid R: 5/5 L: 5/5 Biceps R: 5/5 L: 5/5 Wrist Extension R: 5/5 L: 5/5 Wrist Flexion R: 5/5 L: 5/5 Triceps R: 5/5 L: 5/5 Heel Gummer R: 5/5 L: 5/5 Interossei R: 5/5 L: 5/5 SENSATION to Light Touch: Cervical: C2-T2 symmetrically normal. Thoracic: T1-L1 symmetrically normal. Spurling's: Negative bilaterally. REFLEXES: Upper Extremity: All Upper Extremity reflexes symmetrically normal. Lower Extremity: All Lower Extremity reflexes symmetrically normal. Campbell's: Negative bilaterally. Clonus: R: 0 beats/Normal L: 0 beats/Normal Babinski Sign Present: Negative bilaterally. IMAGING STUDIES: See discussion above documented in this encounter [facility] 08-06-2024 History of Presen t illness Narrative Radiology Service Progress Note PATIENT NAME: Jamil Renee DATE OF SERVICE: August 06, 2024 TIME: 2:18 PM PATIENT IDENTITY VERIFICATION COMPLETED USING TWO (2) IDENTIFIERS: Name and Date of confirmed by patient verbally. FALL SCREENING: Has the patient had 2 falls in the last year or 1 fall with injury or currently using an Ambulatory Assistive Device (Walker, Cane, Wheelchair, Crutches, etc.)? No PATIENT GENDER DATA: Assigned female at . status: : No status: NO. PATIENT RELEVANT IMPLANT DATA REVIEWED: Not Applicable PATIENT PRESENTS WITH AN IMPLANTABLE OR ATTACHED MANAGER CREATIVE SERVICES: No RADIOLOGY DEPARTMENT: General X-ray: Exam(s) Completed: Spine X-Ray(s): Cervical AP / LAT / OBL and Thoracic PERIPHERAL IV DATA: Not applicable SIGNED BY: Yvonne Robles August 06, 2024 2:18 PM documented in this encounter [facility] 08-06-2024 Note HNO ID: [id number] Author: LUZ STEEL Tech Service: ? Author Type: Technologist Type: Progress Notes Filed: 08/06/2024 14:39 Note Text: Radiology Service Progress Note PATIENT NAME: Jamil Renee DATE OF SERVICE: August 06, 2024 TIME: 2:18 PM PATIENT IDENTITY VERIFICATION COMPLETED USING TWO (2) IDENTIFIERS: Name and Date of confirmed by patient verbally. FALL SCREENING: Has the patient had 2 falls in the last year or 1 fall with injury or currently using an Ambulatory Assistive Device (Walker, Cane, Wheelchair, Crutches, etc.)? No PATIENT GENDER DATA: Assigned female at . status: : No status: NO. PATIENT RELEVANT IMPLANT DATA REVIEWED: Not Applicable PATIENT PRESENTS WITH AN IMPLANTABLE OR ATTACHED MANAGER CREATIVE SERVICES: No RADIOLOGY DEPARTMENT: General X-ray: Exam(s) Completed: Spine X-Ray(s): Cervical AP / LAT / OBL and Thoracic PERIPHERAL IV DATA: Not applicable SIGNED BY: Yvonne Robles August 06, 2024 2:18 PM [facility] 08-06-2024 Note HNO ID: [id number] Author: EDWARD HUANG APRN.HUMAN RESOURCES BENEFITS MANAGER Service: ? Author Type: Nurse Practitioner Type: Progress Notes Filed: 08/06/2024 15:11 Note Text: [facility] Subjective Jamil Renee is a 23 year old female. Patient presents with: Back Pain: Upper back pain for a ling time but worse today Patient came in with complaints of mid to upper back pain. Patient says she has had it for at least a year. 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 Denies numbness or tingling shooting down her legs. Denies any weakness of her arms. Patient says certain movements do make it worse. Patient says sometimes it is hard to sleep. Patient denies any injuries to the area. The history is provided by the patient. No first mate was used. Back Pain Review of Systems Constitutional: Negative. Musculoskeletal: Positive for back pain. Objective BP 122/78 Pulse 79 Temp 36.7 ?C (98.1 ?F) (Tympanic) Resp 18 Wt 88.9 kg (195 lb 15.8 oz) LMP 06/26/2024 (Approximate) SpO2 97% BMI 29.58 kg/m? Physical Exam Constitutional: Appearance: Normal appearance. Pulmonary: Effort: Pulmonary effort is normal. Skin: Comments: Patient was tender in the right area marked above when palpated. Area is where patient is feeling the discomfort that comes and goes. No deformities or discoloration noted. Neurological: Mental Status: She is alert. PAST MEDICAL HISTORY Diagnosis Date Menarche 10/24/2012 Migraine without aura PMH - PAST MEDICAL HISTORY OF 11/2003 normal color vision Rheumatoid arthritis Rheumatology PAST SURGICAL HISTORY Procedure Laterality Date TONSILLECTOMY AND ADENOIDECTOMY ALLERGIES Penicillins MEDICATIONS Ferrous Sulfate 27 mg iron tab Take by mouth. MAGNESIUM ORAL Take by mouth. Lactobacillus acidophilus (PROBIOTIC ORAL) Take by mouth. THEANINE ORAL Take by mouth. ASHWAGANDHA EXTRACT ORAL Take by mouth. (Patient not taking: Reported on 07/19/2024) miSOPROStol (CYTOTEC) [address] 2 tabs per vagina the night before and morning of procedure (Patient not taking: Reported on 07/19/2024) fluticasone (FLONASE) 50 mcg/actuation nasal spray Use 2 Sprays in each nostril once daily. Rinse mouth after use. (Patient not taking: Reported on 12/28/2023) FAMILY HISTORY Problem Relation Age of Onset Heart Father irregular heart beat Hypertension Paternal Grandfather Diabetes Paternal Grandfather Hypertension Maternal Grandmother Heart Maternal Grandmother Social History Tobacco Use Smoking status: Never Smokeless tobacco: Never Vaping Use Vaping status: current everyday user Substances: Nicotine, Flavoring Devices: Disposable Substance Use Topics Alcohol use: Yes Comment: occasional Drug use: No {ASSESSMENT/PLAN: 1. Pain - ICD9: 780.96, ICD10: R52 - XR THORACIC GENERAL 3V AP/LAT/SWIMMERS - XR CERV OTHER 4V AP/LAT/OBL * * * * Physician Interpretation * * * * TITLE: XR CERVICAL 4V AP/LAT/OBL, XR THORACIC 3V AP/LAT/SWIMMERS CLINICAL INDICATION: Pain TECHNIQUE: 4 view radiographic study of the cervical spine and 3 view radiographic study of the thoracic spine COMPARISON: Correlation made to chest x-ray dated 11/21/2020 FINDINGS: Cervical spine: Normal prevertebral soft tissues. Reversal of the normal cervical lordosis. Preservation of vertebral body height and disc space height. Minimal grade 1 anterolisthesis of C2 on C3, C3 on C4 and C4 on C5 in a stepwise fashion. Bilateral neural foramina appear grossly patent. Thoracic spine: Preservation of vertebral body height and disc space heights. No radiographic evidence of abnormal paraspinal density. IMPRESSION IMPRESSION: Reversal of the normal cervical lordosis with minimal grade 1 anterolisthesis of C2 on C3, C3 on C4 and C4 on C5 in a stepwise fashion. Preservation of cervical thoracic vertebral body height. Material Handling Supervisor: JOSE Transcribe Date/Time: Aug 06 2024 2:47P Dictated by : MAEVE CURTSI MD - CONSULT TO [facility] Prednisone and flexeril Educated about proper use of medication and supportive therapies. He has been referred to spine due to degeneration at a young age and discomfort patient has felt for the last year radiating out from the spine. Patient was agreeable to follow-up. Patient notes Flexeril make her drowsy. Edward Huang APRN.HUMAN RESOURCES BENEFITS MANAGER MDM Procedures [facility] 08-06-2024 History of Presen t illness Narrative [facility] Subjective Jamil Renee is a 23 year old female. Patient presents with: Back Pain: Upper back pain for a ling time but worse today Patient came in with complaints of mid to upper back pain. Patient says she has had it for at least a year. 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 Denies numbness or tingling shooting down her legs. Denies any weakness of her arms. Patient says certain movements do make it worse. Patient says sometimes it is hard to sleep. Patient denies any injuries to the area. The history is provided by the patient. No first mate was used. Back Pain Review of Systems Constitutional: Negative. Musculoskeletal: Positive for back pain. Objective BP 122/78 Pulse 79 Temp 36.7 C (98.1 F) (Tympanic) Resp 18 Wt 88.9 kg (195 lb 15.8 oz) LMP 06/26/2024 (Approximate) SpO2 97% BMI 29.58 kg/m Physical Exam Constitutional: Appearance: Normal appearance. Pulmonary: Effort: Pulmonary effort is normal. Skin: Comments: Patient was tender in the right area marked above when palpated. Area is where patient is feeling the discomfort that comes and goes. No deformities or discoloration noted. Neurological: Mental Status: She is alert. PAST MEDICAL HISTORY Diagnosis Date Menarche 10/24/2012 Migraine without aura PMH - PAST MEDICAL HISTORY OF 11/2003 normal color vision Rheumatoid arthritis Rheumatology PAST SURGICAL HISTORY Procedure Laterality Date TONSILLECTOMY & ADENOIDECTOMY <AGE 10 ALLERGIES Penicillins MEDICATIONS Ferrous Sulfate 27 mg iron tab Take by mouth. MAGNESIUM ORAL Take by mouth. Lactobacillus acidophilus (PROBIOTIC ORAL) Take by mouth. THEANINE ORAL Take by mouth. ASHWAGANDHA EXTRACT ORAL Take by mouth. (Patient not taking: Reported on 07/19/2024) miSOPROStol (CYTOTEC) [address] 2 tabs per vagina the night before and morning of procedure (Patient not taking: Reported on 07/19/2024) fluticasone (FLONASE) 50 mcg/actuation nasal spray Use 2 Sprays in each nostril once daily. Rinse mouth after use. (Patient not taking: Reported on 12/28/2023) FAMILY HISTORY Problem Relation Age of Onset Heart Father irregular heart beat Hypertension Paternal Grandfather Diabetes Paternal Grandfather Hypertension Maternal Grandmother Heart Maternal Grandmother Social History Tobacco Use Smoking status: Never Smokeless tobacco: Never Vaping Use Vaping status: current everyday user Substances: Nicotine, Flavoring Devices: Disposable Substance Use Topics Alcohol use: Yes Comment: occasional Drug use: No {ASSESSMENT/PLAN: 1. Pain - ICD9: 780.96, ICD10: R52 - XR THORACIC GENERAL 3V AP/LAT/SWIMMERS - XR CERV OTHER 4V AP/LAT/OBL * * * * Physician Interpretation * * * * TITLE: XR CERVICAL 4V AP/LAT/OBL, XR THORACIC 3V AP/LAT/SWIMMERS CLINICAL INDICATION: Pain TECHNIQUE: 4 view radiographic study of the cervical spine and 3 view radiographic study of the thoracic spine COMPARISON: Correlation made to chest x-ray dated 11/21/2020 FINDINGS: Cervical spine: Normal prevertebral soft tissues. Reversal of the normal cervical lordosis. Preservation of vertebral body height and disc space height. Minimal grade 1 anterolisthesis of C2 on C3, C3 on C4 and C4 on C5 in a stepwise fashion. Bilateral neural foramina appear grossly patent. Thoracic spine: Preservation of vertebral body height and disc space heights. No radiographic evidence of abnormal paraspinal density. IMPRESSION IMPRESSION: Reversal of the normal cervical lordosis with minimal grade 1 anterolisthesis of C2 on C3, C3 on C4 and C4 on C5 in a stepwise fashion. Preservation of cervical thoracic vertebral body height. Material Handling Supervisor: JOSE Transcribe Date/Time: Aug 06 2024 2:47P Dictated by : MAEVE CURTIS MD - CONSULT TO [facility] Prednisone and flexeril Educated about proper use of medication and supportive therapies. He has been referred to spine due to degeneration at a young age and discomfort patient has felt for the last year radiating out from the spine. Patient was agreeable to follow-up. Patient notes Flexeril make her drowsy. Edward Huang APRN.HUMAN RESOURCES BENEFITS MANAGER MDM Procedures documented in this encounter [facility] 07-19-2024 Note HNO ID: [id number] Author: JUAN RAMON HUANG MD Service: ? Author Type: Physician Type: Progress Notes Filed: 07/19/2024 16:37 Note Text: Patient declined checker. Jamil Renee is a 23 year old female who presents for problem visit. . HPI: She report vaginal irritation and increased vaginal discharge. Also she had unprotected intercourse. OB History Gravida1 Para0 Term0 Preterm0 AB1 Living0 SAB1 IAB0 Ectopic0 Multiple0 Live Births0 Comment: G1- Very early loss, HCG 34 then trended down. Long Distance Operator History LMP: 03/20/2024 (Approximate), Having periods Age at Menarche: Age at First : Age at Menopause: Long Distance Operator History Comments: Sexual Activity: Yes; Male Contraception: Condom PAST MEDICAL HISTORY Diagnosis Date Menarche 10/24/2012 Migraine without aura PMH - PAST MEDICAL HISTORY OF 11/2003 normal color vision Rheumatoid arthritis (HCC) Rheumatology PAST SURGICAL HISTORY Procedure Laterality Date TONSILLECTOMY AND ADENOIDECTOMY FAMILY HISTORY Problem Relation Age of Onset Heart Father irregular heart beat Hypertension Paternal Grandfather Diabetes Paternal Grandfather Hypertension Maternal Grandmother Heart Maternal Grandmother Social History Tobacco Use Smoking status: Never Smokeless tobacco: Never Vaping Use Vaping status: current everyday user Substances: Nicotine, Flavoring Devices: Disposable Substance Use Topics Alcohol use: Yes Comment: occasional Drug use: No Current Outpatient Medications Medication Sig ASHWAGANDHA EXTRACT ORAL Take by mouth. miSOPROStol (CYTOTEC) [address] 2 tabs per vagina the night before and morning of procedure fluticasone (FLONASE) 50 mcg/actuation nasal spray Use 2 Sprays in each nostril once daily. Rinse mouth after use. (Patient not taking: Reported on 12/28/2023) MAGNESIUM ORAL Take by mouth. Lactobacillus acidophilus (PROBIOTIC ORAL) Take by mouth. THEANINE ORAL Take by mouth. No current facility-administered medications for this visit. Allergies As of Date: 07/19/2024 Allergen Noted Reaction PENICILLINS 05/31/2010 Rash Fully Assessed 04/15/2024 Allergies and current medication updated:Yes SENSITIVE EXAM: The sensitive examination was discussed with the Patient or Patient's Authorized Animal Attendant. As applicable, any other physician, advance practice provider, medical student, or other health professional student that will be observing or involved in the sensitive examination for educational or training purposes was discussed with the Patient or Authorized Animal Attendant. The Patient or Authorized Animal Attendant has agreed to proceed with the sensitive examination. (Sensitive examination includes inspection and/or palpation of the breasts, pelvis, prostate and anorectal regions). EXAM: LMP 03/20/2024 GENERAL: pleasant, female in no apparent distress PELVIC: external genitalia normal, normal Bartholin's glands, urethra, [place]'s glands, no vulvar lesions, no cervical lesions, good vaginal support, thin AND white discharge present, normal appearing perineal body and perianal region BIMANUAL: deferred NEURO: alert and oriented x3,exam grossly non-focal EXTREMITIES: normal ASSESSMENT AND PLAN: Assessment AND Plan Screen for STD (sexually transmitted disease) Vaginal irritation Medical Decision Making: Problems: Low: Acute, uncomplicated illness or injury Data: Unique test(s) ordered: 3+ Risk: Low: Low risk from testing/treatment Medical Decision Making Level: 3 - Low Juan Ramon Huang MD [facility] 07-19-2024 History of Presen t illness Narrative Patient declined checker. Jamil Renee is a 23 year old female who presents for problem visit. . HPI: She report vaginal irritation and increased vaginal discharge. Also she had unprotected intercourse. OB History Gravida1 Para0 Term0 Preterm0 AB1 Living0 SAB1 IAB0 Ectopic0 Multiple0 Live Births0 Comment: G1- Very early loss, HCG 34 then trended down. Long Distance Operator History LMP: 03/20/2024 (Approximate), Having periods Age at Menarche: Age at First : Age at Menopause: Long Distance Operator History Comments: Sexual Activity: Yes; Male Contraception: Condom PAST MEDICAL HISTORY Diagnosis Date Menarche 10/24/2012 Migraine without aura PMH - PAST MEDICAL HISTORY OF 11/2003 normal color vision Rheumatoid arthritis (HCC) Rheumatology PAST SURGICAL HISTORY Procedure Laterality Date TONSILLECTOMY & ADENOIDECTOMY <AGE 10 FAMILY HISTORY Problem Relation Age of Onset Heart Father irregular heart beat Hypertension Paternal Grandfather Diabetes Paternal Grandfather Hypertension Maternal Grandmother Heart Maternal Grandmother Social History Tobacco Use Smoking status: Never Smokeless tobacco: Never Vaping Use Vaping status: current everyday user Substances: Nicotine, Flavoring Devices: Disposable Substance Use Topics Alcohol use: Yes Comment: occasional Drug use: No Current Outpatient Medications Medication Sig ASHWAGANDHA EXTRACT ORAL Take by mouth. miSOPROStol (CYTOTEC) [address] 2 tabs per vagina the night before and morning of procedure fluticasone (FLONASE) 50 mcg/actuation nasal spray Use 2 Sprays in each nostril once daily. Rinse mouth after use. (Patient not taking: Reported on 12/28/2023) MAGNESIUM ORAL Take by mouth. Lactobacillus acidophilus (PROBIOTIC ORAL) Take by mouth. THEANINE ORAL Take by mouth. No current facility-administered medications for this visit. Allergies As of Date: 07/19/2024 Allergen Noted Reaction PENICILLINS 05/31/2010 Rash Fully Assessed 04/15/2024 Allergies and current medication updated:Yes SENSITIVE EXAM: The sensitive examination was discussed with the Patient or Patient's Authorized Animal Attendant. As applicable, any other physician, advance practice provider, medical student, or other health professional student that will be observing or involved in the sensitive examination for educational or training purposes was discussed with the Patient or Authorized Animal Attendant. The Patient or Authorized Animal Attendant has agreed to proceed with the sensitive examination. (Sensitive examination includes inspection and/or palpation of the breasts, pelvis, prostate and anorectal regions). EXAM: LMP 03/20/2024 GENERAL: pleasant, female in no apparent distress PELVIC: external genitalia normal, normal Bartholin's glands, urethra, [place]'s glands, no vulvar lesions, no cervical lesions, good vaginal support, thin & white discharge present, normal appearing perineal body and perianal region BIMANUAL: deferred NEURO: alert and oriented x3,exam grossly non-focal EXTREMITIES: normal ASSESSMENT AND PLAN: Assessment & Plan Screen for STD (sexually transmitted disease) Vaginal irritation Medical Decision Making: Problems: Low: Acute, uncomplicated illness or injury Data: Unique test(s) ordered: 3+ Risk: Low: Low risk from testing/treatment Medical Decision Making Level: 3 - Low Juan Ramon Huang MD documented in this encounter [facility] 04-30-2024 Telephone encounter Note Patient notified. Meg Wallace RN [facility] 04-30-2024 Miscellaneous Notes Patient notified. Meg Wallace RN Ok. Order filed PSS received message from patient requesting repeat hcg levels to make sure it's in negative range before proceeding with IUD insertion. Order pending if okay. Please advise. hCG Quantitative, Blood (mIU/mL) Date Value 04/22/2024 15.6 04/15/2024 30.8 Meg Wallace RN documented in this encounter [facility] 04-30-2024 Telephone encounter Note Ok. Order filed [facility] 04-30-2024 Telephone encounter Note PSS received message from patient requesting repeat hcg levels to make sure it's in negative range before proceeding with IUD insertion. Order pending if okay. Please advise. hCG Quantitative, Blood (mIU/mL) Date Value 04/22/2024 15.6 04/15/2024 30.8 Meg Wallace RN [facility] 04-22-2024 Telephone encounter Note Patient notified and voiced understanding. Sarai Negron RN [facility] 04-22-2024 Miscellaneous Notes Patient notified and voiced understanding. Sarai Negron RN Left message for Pt's mother to have Pt contact the office at her earliest convenience. Chely Richter RN Tried reaching Pt via phone; however, mailbox is full and cannot accept new messages at this time. Chely Richter RN ----- Message from Jenny Barros MD sent at 04/18/2024 12:13 PM EST ----- Do not take misoprostol, repeat hcg recommended, early w/ +hcg quant. Jenny Barros MD documented in this encounter [facility] 04-18-2024 Telephone encounter Note Left message for Pt's mother to have Pt contact the office at her earliest convenience. Chely Richter RN [facility] 04-18-2024 Telephone encounter Note Tried reaching Pt via phone; however, mailbox is full and cannot accept new messages at this time. Chely Richter RN [facility] 04-18-2024 Telephone encounter Note ----- Message from Jenny Barros MD sent at 04/18/2024 12:13 PM EST ----- Do not take misoprostol, repeat hcg recommended, early w/ +hcg quant. Jenny Barros MD [facility] 04-15-2024 Telephone encounter Note Sure. Orders placed [facility] 04-15-2024 Miscellaneous Notes Sure. Orders placed Patient had her HCG and TSH level checked today. Asking if she could have her "vitamin levels" checked using those same specimens. Inquired if there was a specific level she wanted. Stated things like her iron and magnesium. Can additional labs be ordered? Patient agreeable to scheduling a lab appointment. Melissa Dorantes RN documented in this encounter [facility] 04-15-2024 Telephone encounter Note Patient had her HCG and TSH level checked today. Asking if she could have her "vitamin levels" checked using those same specimens. Inquired if there was a specific level she wanted. Stated things like her iron and magnesium. Can additional labs be ordered? Patient agreeable to scheduling a lab appointment. Melissa Dorantes RN [facility] 04-15-2024 Note HNO ID: [id number] Author: MELISSA AMADOR MD Service: ? Author Type: Physician Type: Progress Notes Filed: 04/15/2024 12:29 Note Text: Jamil Renee is a 23 year old female who presents for problem visit irregular menses for 3 week(s). HPI: EAB in early Dec. Menses was normal in January. Started on time in February but hasn't stopped. Heavy for well over a week. Now just spotting. Did take a test that was negative. Has also started taking iron. Was previously on Sprintec but did not do well emotionally. Some suicidal ideation. Has done better without contraception. Has been considering ParaGard IUD. Does not want to be at this time but worried about trying anything with hormones. Reviewed ParaGard's effect on menstrual bleeding. Reviewed placement of IUD. Does have a difficult time with yearly exams. Willing to try. Will pre treat with motrin and Cytotec. Mom has a history of hyperthyroidism. Pt has not had a thyroid screen in several years. 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 Operator History LMP: 03/20/2024 (Approximate), Having periods Age at Menarche: Age at First : Age at Menopause: Long Distance Operator History Comments: Sexual Activity: Yes; Male Contraception: Condom PAST MEDICAL HISTORY Diagnosis Date Menarche 10/24/2012 Migraine without aura PMH - PAST MEDICAL HISTORY OF 11/2003 normal color vision Rheumatoid arthritis (HCC) Rheumatology PAST SURGICAL HISTORY Procedure Laterality Date TONSILLECTOMY AND ADENOIDECTOMY FAMILY HISTORY Problem Relation Age of Onset Heart Father irregular heart beat Hypertension Paternal Grandfather Diabetes Paternal Grandfather Hypertension Maternal Grandmother Heart Maternal Grandmother Social History Tobacco Use Smoking status: Never Smokeless tobacco: Never Vaping Use Vaping status: current everyday user Substances: Nicotine, Flavoring Devices: Disposable Substance Use Topics Alcohol use: Yes Comment: occasional Drug use: No Current Outpatient Medications Medication Sig ASHWAGANDHA EXTRACT ORAL Take by mouth. MAGNESIUM ORAL Take by mouth. Lactobacillus acidophilus (PROBIOTIC ORAL) Take by mouth. THEANINE ORAL Take by mouth. fluticasone (FLONASE) 50 mcg/actuation nasal spray Use 2 Sprays in each nostril once daily. Rinse mouth after use. (Patient not taking: Reported on 12/28/2023) No current facility-administered medications for this visit. Allergies As of Date: 04/15/2024 Allergen Noted Reaction PENICILLINS 05/31/2010 Rash Fully Assessed 04/15/2024 REVIEW OF SYSTEMS Abdomen: No bloating, early satiety, indigestion, or increased flatulence. No abdominal pain, nausea, vomiting, diarrhea, or constipation. Bladder: No dysuria, gross hematuria, urinary frequency, urinary urgency, or incontinence. Breast: No breast lumps, nipple d/c, overlying skin changes, redness or skin retraction. Expanded ROS: N/A Allergies and current medication updated:Yes SENSITIVE EXAM: Sensitive exam not performed. EXAM: BP 98/60 Wt 194 lb (88.0kg) LMP 03/20/2024 GENERAL: pleasant, female in no apparent distress HEENT: Normocephalic, atraumatic, mucus membranes moist, and no lesions NECK: full range of motion DERMATOLOGY: Normal, without lesions, non-icteric, and non-hirsute BREAST: deferred CHEST: Normal inspiratory effort ABDOMEN: Deferred PELVIC: deferred BIMANUAL: deferred NEURO: alert and oriented x3,exam grossly non-focal EXTREMITIES: normal ASSESSMENT AND PLAN: Assessment AND Plan Irregular menses Orders: TSH W/REFLEX FT4; Future HCG QUANTITATIVE; Future Encounter for IUD insertion Orders: INSERT INTRAUTERINE DEVICE miSOPROStol (CYTOTEC) 100 mcg tablet; Place 2 tabs per vagina the night before and morning of procedure Melissa Amador MD [facility] 04-15-2024 History of Presen t illness Narrative Jamil Renee is a 23 year old female who presents for problem visit irregular menses for 3 week(s). HPI: EAB in early Dec. Menses was normal in January. Started on time in February but hasn't stopped. Heavy for well over a week. Now just spotting. Did take a test that was negative. Has also started taking iron. Was previously on Sprintec but did not do well emotionally. Some suicidal ideation. Has done better without contraception. Has been considering ParaGard IUD. Does not want to be at this time but worried about trying anything with hormones. Reviewed ParaGard's effect on menstrual bleeding. Reviewed placement of IUD. Does have a difficult time with yearly exams. Willing to try. Will pre treat with motrin and Cytotec. Mom has a history of hyperthyroidism. Pt has not had a thyroid screen in several years. 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 Operator History LMP: 03/20/2024 (Approximate), Having periods Age at Menarche: Age at First : Age at Menopause: Long Distance Operator History Comments: Sexual Activity: Yes; Male Contraception: Condom PAST MEDICAL HISTORY Diagnosis Date Menarche 10/24/2012 Migraine without aura PMH - PAST MEDICAL HISTORY OF 11/2003 normal color vision Rheumatoid arthritis (HCC) Rheumatology PAST SURGICAL HISTORY Procedure Laterality Date TONSILLECTOMY & ADENOIDECTOMY <AGE 10 FAMILY HISTORY Problem Relation Age of Onset Heart Father irregular heart beat Hypertension Paternal Grandfather Diabetes Paternal Grandfather Hypertension Maternal Grandmother Heart Maternal Grandmother Social History Tobacco Use Smoking status: Never Smokeless tobacco: Never Vaping Use Vaping status: current everyday user Substances: Nicotine, Flavoring Devices: Disposable Substance Use Topics Alcohol use: Yes Comment: occasional Drug use: No Current Outpatient Medications Medication Sig ASHWAGANDHA EXTRACT ORAL Take by mouth. MAGNESIUM ORAL Take by mouth. Lactobacillus acidophilus (PROBIOTIC ORAL) Take by mouth. THEANINE ORAL Take by mouth. fluticasone (FLONASE) 50 mcg/actuation nasal spray Use 2 Sprays in each nostril once daily. Rinse mouth after use. (Patient not taking: Reported on 12/28/2023) No current facility-administered medications for this visit. Allergies As of Date: 04/15/2024 Allergen Noted Reaction PENICILLINS 05/31/2010 Rash Fully Assessed 04/15/2024 REVIEW OF SYSTEMS Abdomen: No bloating, early satiety, indigestion, or increased flatulence. No abdominal pain, nausea, vomiting, diarrhea, or constipation. Bladder: No dysuria, gross hematuria, urinary frequency, urinary urgency, or incontinence. Breast: No breast lumps, nipple d/c, overlying skin changes, redness or skin retraction. Expanded ROS: N/A Allergies and current medication updated:Yes SENSITIVE EXAM: Sensitive exam not performed. EXAM: BP 98/60 Wt 194 lb (88.0kg) LMP 03/20/2024 GENERAL: pleasant, female in no apparent distress HEENT: Normocephalic, atraumatic, mucus membranes moist, and no lesions NECK: full range of motion DERMATOLOGY: Normal, without lesions, non-icteric, and non-hirsute BREAST: deferred CHEST: Normal inspiratory effort ABDOMEN: Deferred PELVIC: deferred BIMANUAL: deferred NEURO: alert and oriented x3,exam grossly non-focal EXTREMITIES: normal ASSESSMENT AND PLAN: Assessment & Plan Irregular menses Orders: TSH W/REFLEX FT4; Future HCG QUANTITATIVE; Future Encounter for IUD insertion Orders: INSERT INTRAUTERINE DEVICE miSOPROStol (CYTOTEC) 100 mcg tablet; Place 2 tabs per vagina the night before and morning of procedure Melissa Amador MD documented in this encounter [facility] 03-06-2024 Note HNO ID: [id number] Author: HERMELINDA WELLS PA-C Service: ? Author Type: Physician Boat Pilot Type: Progress Notes Filed: 03/06/2024 19:58 Note Text: This note was created using Sanoriter. Subjective Jamil Renee is a 23 year old female. HPI Patient presents with a chief complaint of nasal congestion, sinus pressure earaches over the past day. No significant cough. Sometimes does have to clear her throat. Her boyfriend was sick with URI symptoms recently and she also attended a wedding recently. She has had some hot flashes but no documented fever. No vomiting or diarrhea. She did try some Afrin [id number]. Review of Systems Constitutional: Positive for chills and fatigue. Negative for fever. HENT: Positive for congestion, ear pain, postnasal drip and sinus pressure. Negative for ear discharge. Respiratory: Negative for cough, shortness of breath and wheezing. Cardiovascular: Negative. Gastrointestinal: Negative. Genitourinary: Negative. Musculoskeletal: Negative. Neurological: Positive for headaches. All other systems reviewed and are negative. PAST MEDICAL HISTORY Diagnosis Date Menarche 10/24/2012 Migraine without aura PMH - PAST MEDICAL HISTORY OF 11/2003 normal color vision Rheumatoid arthritis (HCC) Rheumatology Current Outpatient Medications Medication Sig Dispense Refill MAGNESIUM ORAL Take by mouth. Lactobacillus acidophilus (PROBIOTIC ORAL) Take by mouth. THEANINE ORAL Take by mouth. fluticasone (FLONASE) 50 mcg/actuation nasal spray Use 2 Sprays in each nostril once daily. Rinse mouth after use. (Patient not taking: Reported on 12/28/2023) 1 Each 0 No current facility-administered medications for this visit. PAST SURGICAL HISTORY Procedure Laterality Date TONSILLECTOMY AND ADENOIDECTOMY FAMILY HISTORY Problem Relation Age of Onset Heart Father irregular heart beat Hypertension Paternal Grandfather Diabetes Paternal Grandfather Hypertension Maternal Grandmother Heart Maternal Grandmother Social History Tobacco Use Smoking status: Never Smokeless tobacco: Never Vaping Use Vaping status: current everyday user Substances: Nicotine, Flavoring Devices: Disposable Substance Use Topics Alcohol use: Yes Comment: occasional Drug use: No Objective BP 112/72 Pulse 103 Temp 36.9 ?C (98.5 ?F) (Tympanic) Resp 18 Wt 88.1 kg (194 lb 3.6 oz) LMP 12/01/2023 (Approximate) SpO2 99% BMI 29.32 kg/m? Physical Exam Vitals reviewed. Constitutional: Appearance: Normal appearance. HENT: Head: Normocephalic and atraumatic. Right Ear: Tympanic membrane, ear canal and external ear normal. Left Ear: Tympanic membrane, ear canal and external ear normal. Nose: Congestion present. Mouth/Throat: Mouth: Mucous membranes are moist. Pharynx: Oropharynx is clear. Cardiovascular: Rate and Rhythm: Normal rate and regular rhythm. Heart sounds: Normal heart sounds. Pulmonary: Effort: Pulmonary effort is normal. Breath sounds: Normal breath sounds. Musculoskeletal: Cervical back: Neck supple. Lymphadenopathy: Cervical: No cervical adenopathy. Skin: General: Skin is warm and dry. Findings: No rash. Neurological: Mental Status: She is alert. Assessment and Plan ASSESSMENT/PLAN: 1. Viral URI - ICD9: 465.9, ICD10: J06.9 - Discussed viral etiology and rationale for treatment. - Symptomatic treatment with prn analgesia - Supportive care with fluids and rest - The patient may also use OTC decongestants prn. - Follow up in 3-5 days if symptoms persist or sooner if worsening of symptoms Hermelinda Wells PA-C [facility] 03-06-2024 History of Presen t illness Narrative This note was created using Sanoriter. Subjective Jamil Renee is a 23 year old female. HPI Patient presents with a chief complaint of nasal congestion, sinus pressure earaches over the past day. No significant cough. Sometimes does have to clear her throat. Her boyfriend was sick with URI symptoms recently and she also attended a wedding recently. She has had some hot flashes but no documented fever. No vomiting or diarrhea. She did try some Afrin [id number]. Review of Systems Constitutional: Positive for chills and fatigue. Negative for fever. HENT: Positive for congestion, ear pain, postnasal drip and sinus pressure. Negative for ear discharge. Respiratory: Negative for cough, shortness of breath and wheezing. Cardiovascular: Negative. Gastrointestinal: Negative. Genitourinary: Negative. Musculoskeletal: Negative. Neurological: Positive for headaches. All other systems reviewed and are negative. PAST MEDICAL HISTORY Diagnosis Date Menarche 10/24/2012 Migraine without aura PMH - PAST MEDICAL HISTORY OF 11/2003 normal color vision Rheumatoid arthritis (HCC) Rheumatology Current Outpatient Medications Medication Sig Dispense Refill MAGNESIUM ORAL Take by mouth. Lactobacillus acidophilus (PROBIOTIC ORAL) Take by mouth. THEANINE ORAL Take by mouth. fluticasone (FLONASE) 50 mcg/actuation nasal spray Use 2 Sprays in each nostril once daily. Rinse mouth after use. (Patient not taking: Reported on 12/28/2023) 1 Each 0 No current facility-administered medications for this visit. PAST SURGICAL HISTORY Procedure Laterality Date TONSILLECTOMY & ADENOIDECTOMY <AGE 12 FAMILY HISTORY Problem Relation Age of Onset Heart Father irregular heart beat Hypertension Paternal Grandfather Diabetes Paternal Grandfather Hypertension Maternal Grandmother Heart Maternal Grandmother Social History Tobacco Use Smoking status: Never Smokeless tobacco: Never Vaping Use Vaping status: current everyday user Substances: Nicotine, Flavoring Devices: Disposable Substance Use Topics Alcohol use: Yes Comment: occasional Drug use: No Objective BP 112/72 Pulse 103 Temp 36.9 C (98.5 F) (Tympanic) Resp 18 Wt 88.1 kg (194 lb 3.6 oz) LMP 12/01/2023 (Approximate) SpO2 99% BMI 29.32 kg/m Physical Exam Vitals reviewed. Constitutional: Appearance: Normal appearance. HENT: Head: Normocephalic and atraumatic. Right Ear: Tympanic membrane, ear canal and external ear normal. Left Ear: Tympanic membrane, ear canal and external ear normal. Nose: Congestion present. Mouth/Throat: Mouth: Mucous membranes are moist. Pharynx: Oropharynx is clear. Cardiovascular: Rate and Rhythm: Normal rate and regular rhythm. Heart sounds: Normal heart sounds. Pulmonary: Effort: Pulmonary effort is normal. Breath sounds: Normal breath sounds. Musculoskeletal: Cervical back: Neck supple. Lymphadenopathy: Cervical: No cervical adenopathy. Skin: General: Skin is warm and dry. Findings: No rash. Neurological: Mental Status: She is alert. Assessment and Plan ASSESSMENT/PLAN: 1. Viral URI - ICD9: 465.9, ICD10: J06.9 - Discussed viral etiology and rationale for treatment. - Symptomatic treatment with prn analgesia - Supportive care with fluids and rest - The patient may also use OTC decongestants prn. - Follow up in 3-5 days if symptoms persist or sooner if worsening of symptoms Hermelinda Wells PA-C documented in this encounter [facility] 03-06-2024 Instructions Hermelinda Wells PA-C - 03/06/2024 7:49 PM EST May continue Flonase [id number], OTC decongestant, antihistamine. If symptoms are not improving after 3 to 5 days or worsening or you spike a fever be seen again. documented in this encounter [facility] 12-28-2023 Note HNO ID: [id number] Author: JUAN RAMON HUANG MD Service: ? Author Type: Physician Type: Progress Notes Filed: 12/28/2023 16:54 Note Text: Chrome Worker offered: Patient declines. Jamil is a 23 year old who presents for an annual gynecologic exam. Menses: cycles every 24-30 days and 7 days of flow. 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 Operator History Comments: Sexual Activity: Yes; Male Contraception: Condom PAST MEDICAL HISTORY 08/23/2016: Herpes simplex 10/24/12: Menarche No date: Migraine without aura 11/25: PMH - PAST MEDICAL HISTORY OF Comment: normal color vision No date: Rheumatoid arthritis (HCC) Comment: RheumatologyPAST SURGICAL HISTORY No date: TONSILLECTOMY AND ADENOIDECTOMY FAMILY HISTORY Problem Relation Age of Onset Heart Father irregular heart beat Hypertension Paternal Grandfather Diabetes Paternal Grandfather Hypertension Maternal Grandmother Heart Maternal Grandmother SOCIAL HISTORY Social History Tobacco Use Smoking status: Never Smokeless tobacco: Never Vaping Use Vaping status: current everyday user Substances: Nicotine, Flavoring Devices: Disposable Substance Use Topics Alcohol use: Yes Comment: occasional Drug use: No REVIEW OF SYSTEMS Abdomen: No abdominal pain, nausea, vomiting, diarrhea, or constipation. No bloating, early satiety, indigestion, or increased flatulence. Bladder: No dysuria, gross hematuria, urinary frequency, urinary urgency, or incontinence. Breast: No breast lumps, nipple d/c, overlying skin changes, redness or skin retraction. Allergies and current medication updated:Yes EXAM: BP 110/74 Ht 5' 8.25" (1.73m) Wt 194 lb (88.0kg) LMP 12/01/2023 BMI 29.27 kg/(m2). GENERAL: pleasant, female in no apparent distress BREAST: soft, non-tender, symmetric, no dominant mass, normal nipple-areolar complex, no lymphadenopathy, and no nipple discharge CHEST: Normal inspiratory effort ABDOMEN: soft, non-tender, and no masses PELVIC: external genitalia normal, normal Bartholin's glands, urethra, [place]'s glands, no vulvar lesions, no cervical lesions, good vaginal support, physiologic discharge present, normal appearing perineal body and perianal region BIMANUAL: uterus normal size, shape and consistency, no adnexal masses, and non-tender RECTOVAGINAL: deferred. NEURO: alert and oriented x3,exam grossly non-focal EXTREMITIES: normal ASSESSMENT/PLAN: 1) Health maintenance: Pap up to date. Nutrition, exercise and routine health maintenance exams reviewed. HPV vaccine: completed series 2) Contraception: condoms. Contraceptive options reviewed and information provided. Discussed Mirena AND Paragard IUD and patient considering these as options. 3) STD screening: Accepted STD check for Gonorrhea and Chlamydia with trich. 4) Follow up one year or sooner as needed Juan Ramon Huang MD [facility] 12-28-2023 History of Presen t illness Narrative Chrome Worker offered: Patient declines. Jamil is a 23 year old who presents for an annual gynecologic exam. Menses: cycles every 24-30 days and 7 days of flow. 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 Operator History Comments: Sexual Activity: Yes; Male Contraception: Condom PAST MEDICAL HISTORY 08/23/2016: Herpes simplex 10/24/12: Menarche No date: Migraine without aura 11/25: PMH - PAST MEDICAL HISTORY OF Comment: normal color vision No date: Rheumatoid arthritis (HCC) Comment: RheumatologyPAST SURGICAL HISTORY No date: TONSILLECTOMY & ADENOIDECTOMY <AGE 10 FAMILY HISTORY Problem Relation Age of Onset Heart Father irregular heart beat Hypertension Paternal Grandfather Diabetes Paternal Grandfather Hypertension Maternal Grandmother Heart Maternal Grandmother SOCIAL HISTORY Social History Tobacco Use Smoking status: Never Smokeless tobacco: Never Vaping Use Vaping status: current everyday user Substances: Nicotine, Flavoring Devices: Disposable Substance Use Topics Alcohol use: Yes Comment: occasional Drug use: No REVIEW OF SYSTEMS Abdomen: No abdominal pain, nausea, vomiting, diarrhea, or constipation. No bloating, early satiety, indigestion, or increased flatulence. Bladder: No dysuria, gross hematuria, urinary frequency, urinary urgency, or incontinence. Breast: No breast lumps, nipple d/c, overlying skin changes, redness or skin retraction. Allergies and current medication updated:Yes EXAM: BP 110/74 Ht 5' 8.25" (1.73m) Wt 194 lb (88.0kg) LMP 12/01/2023 BMI 29.27 kg/(m^2). GENERAL: pleasant, female in no apparent distress BREAST: soft, non-tender, symmetric, no dominant mass, normal nipple-areolar complex, no lymphadenopathy, and no nipple discharge CHEST: Normal inspiratory effort ABDOMEN: soft, non-tender, and no masses PELVIC: external genitalia normal, normal Bartholin's glands, urethra, [place]'s glands, no vulvar lesions, no cervical lesions, good vaginal support, physiologic discharge present, normal appearing perineal body and perianal region BIMANUAL: uterus normal size, shape and consistency, no adnexal masses, and non-tender RECTOVAGINAL: deferred. NEURO: alert and oriented x3,exam grossly non-focal EXTREMITIES: normal ASSESSMENT/PLAN: 1) Health maintenance: Pap up to date. Nutrition, exercise and routine health maintenance exams reviewed. HPV vaccine: completed series 2) Contraception: condoms. Contraceptive options reviewed and information provided. Discussed Mirena & Paragard IUD and patient considering these as options. 3) STD screening: Accepted STD check for Gonorrhea and Chlamydia with trich. 4) Follow up one year or sooner as needed Juan Ramon Huang MD documented in this encounter [facility] 07-31-2023 History of Presen t illness Narrative This note was created using Sanor[employer]. Subjective Jamil Renee is a 22 year old female. HPI Presents with a chief complaint of sinus pressure, congestion, cough over the past 3 days. States she had a hoarse voice for couple days and then the symptoms started. She has felt feverish today and yesterday. No diarrhea or vomiting. Denies chest pain or shortness of breath. She has used some Mucinex [id number]. No home COVID test done. Review of Systems Constitutional: Positive for fatigue and fever. HENT: Positive for congestion, rhinorrhea, sinus pressure and sore throat. Negative for ear pain. Respiratory: Positive for cough. Negative for shortness of breath and wheezing. Cardiovascular: Negative. Gastrointestinal: Negative for diarrhea and nausea. Genitourinary: Negative. Musculoskeletal: Positive for myalgias. Neurological: Positive for headaches. All other systems reviewed and are negative. PAST MEDICAL HISTORY Diagnosis Date Herpes simplex 08/23/2016 Menarche 10/24/12 Migraine without aura PMH - PAST MEDICAL HISTORY OF 11/25 normal color vision Rheumatoid arthritis (HCC) Rheumatology Current Outpatient Medications Medication Sig Dispense Refill MAGNESIUM ORAL Take by mouth. amino acids (AMINO ACID ORAL) Take by mouth. Lactobacillus acidophilus (PROBIOTIC ORAL) Take by mouth. THEANINE ORAL Take by mouth. fluticasone (FLONASE) 50 mcg/actuation nasal spray Use 2 Sprays in each nostril once daily. Rinse mouth after use. 1 Each 0 Sppbnrhktacroen-Yoqfrphis-UU (BROMFED DM) 2-30-10 mg/5 mL syrup Take 10 mL by mouth four times a day as needed. 200 mL 0 triamcinolone acetonide (KENALOG) 0.1 % ointment Apply to affected area twice daily. (Patient not taking: Reported on 12/22/2022) 30 g 2 nystatin (MYCOSTATIN) ointment Apply to affected area twice daily. (Patient not taking: Reported on 12/22/2022) 30 g 1 vitamin A and D ointment Apply to affected area as needed. (Patient not taking: Reported on 12/22/2022) No current facility-administered medications for this visit. PAST SURGICAL HISTORY Procedure Laterality Date TONSILLECTOMY & ADENOIDECTOMY <AGE 10 FAMILY HISTORY Problem Relation Age of Onset Heart Father irregular heart beat Hypertension Paternal Grandfather Diabetes Paternal Grandfather Hypertension Maternal Grandmother Heart Maternal Grandmother Social History Tobacco Use Smoking status: Never Smokeless tobacco: Never Vaping Use Vaping Use: current everyday user Substance Use Topics Alcohol use: Yes Drug use: No Objective BP 110/78 Pulse 104 Temp 37 C (98.6 F) (Tympanic) Resp 16 Wt 86.3 kg (190 lb 4.1 oz) LMP 11/12/2022 (Approximate) SpO2 98% BMI 28.51 kg/m Physical Exam Vitals reviewed. Constitutional: Appearance: Normal appearance. HENT: Head: Normocephalic and atraumatic. Right Ear: Tympanic membrane, ear canal and external ear normal. Left Ear: Tympanic membrane, ear canal and external ear normal. Nose: Congestion present. Right Sinus: Maxillary sinus tenderness present. Left Sinus: Maxillary sinus tenderness present. Mouth/Throat: Mouth: Mucous membranes are moist. Cardiovascular: Rate and Rhythm: Normal rate and regular rhythm. Heart sounds: Normal heart sounds. Pulmonary: Effort: Pulmonary effort is normal. Breath sounds: Normal breath sounds. Musculoskeletal: Cervical back: Neck supple. Skin: General: Skin is warm and dry. Assessment and Plan ASSESSMENT/PLAN: 1. Viral URI - ICD9: 465.9, ICD10: J06.9 - Discussed viral etiology and rationale for treatment. - bromfed and flonase sent - Symptomatic treatment with prn analgesia - Supportive care with fluids and rest - Follow up in 3-5 days if symptoms persist or sooner if worsening of symptoms - COVID & INFLUENZA A/B & RSV NAAT, ROUTINE Hermelinda Wells PA-C documented in this encounter [facility] 12-22-2022 History of Presen t illness Narrative Chrome Worker offered: Patient accepts, visit chaperoned by Ángela Crowe MA. Jamil Renee is a 22 year old female who presents today for a vulvar biopsy. Indication: Vulvar Rash. UNIVERSAL PROTOCOL / SAFETY CHECKLIST Procedure to be Performed: Right inner thigh skin Biopsy Sign In: A Moment of CARE was completed. Personnel directly involved with the procedure wore the appropriate PPE (Personal Protective Equipment). Patient/Surrogate Stated/Verified: PATIENT VERIFIED(optional for EMERGENT procedures): Patient name, Date of , Relevant allergies, and The intended procedure Time Out Communication: Intended patient and procedure match the source documents. Consent documented and matches the intended procedure. Sign Out: SIGN OUT (optional for EMERGENT procedures): All specimen containers correctly labeled. All instruments, equipment, possible retained foreign bodies accounted for. Post-procedure follow-up management communicated and Plan of Care Visit completed when applicable. PROCEDURE NOTE: GROSS LESIONS: Yes, skin rash BIOPSY: Area was cleansed with betadine and anesthetized with 2.5mL 1% lidocaine with 1:100,000 epi. 4mm [place] punch used to biopsy region. HEMOSTASIS: Obtained with silver nitrate, suture vicry, and pressure Procedure Summary: Patient tolerated procedure well. ASSESSMENT: Persistent skin rash PLAN: Specimens labeled and sent to Pathology. Will notify patient of results in 1-2 weeks. Post-procedure instructions reviewed and written material given to the patient. Juan Ramon Huang MD documented in this encounter [facility] 12-08-2022 Miscellaneous Notes I would stop the fungal cream. Is the kenalog ointment helping? I would keep the appointment and plan for a biopsy at that time/. Juan Ramon Huang MD documented in this encounter [facility] 11-29-2022 History of Presen t illness Narrative Jamil Renee is a 21 year old female who presents for problem visit. HPI: Patient presents with a vulvar/perineal rash. It started with one round area over 2 weeks ago. She is worried it could be an STD. Also she stopped ocps after taking them for 2 months. It seemed to affect her mood. Patient doesn't need control now but wants to discuss options for the future. 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 Operator History LMP: 11/12/2022 (Approximate), Having periods Age at Menarche: Age at First : Age at Menopause: Long Distance Operator History Comments: Sexual Activity: Yes; Male Contraception: Condom PAST MEDICAL HISTORY Diagnosis Date Herpes simplex 08/23/2016 Menarche 10/24/12 Migraine without aura PMH - PAST MEDICAL HISTORY OF 11/25 normal color vision Rheumatoid arthritis (HCC) Rheumatology PAST SURGICAL HISTORY Procedure Laterality Date TONSILLECTOMY & ADENOIDECTOMY <AGE 10 FAMILY HISTORY Problem Relation Age of Onset Heart Father irregular heart beat Hypertension Paternal Grandfather Diabetes Paternal Grandfather Hypertension Maternal Grandmother Heart Maternal Grandmother Social History Tobacco Use Smoking status: Never Smokeless tobacco: Never Vaping Use Vaping Use: current everyday user Substance Use Topics Alcohol use: Yes Drug use: No Current Outpatient Medications Medication Sig MAGNESIUM ORAL Take by mouth. amino acids (AMINO ACID ORAL) Take by mouth. Lactobacillus acidophilus (PROBIOTIC ORAL) Take by mouth. THEANINE ORAL Take by mouth. norgestimate 0.25 mg-ethinyl estradiol 35 mcg (SPRINTEC) 0.25-35 mg-mcg per tablet Take 1 tablet by mouth once daily. No current facility-administered medications for this visit. Allergies As of Date: 11/29/2022 Allergen Noted Reaction ENVIRONMENTAL [OTHER] 12/03/2004 Other: See Comments PENICILLINS 05/31/2010 Rash Fully Assessed 11/29/2022 Allergies and current medication updated:Yes EXAM: BP 100/70 Wt 189 lb 12.8 oz (86.1kg) LMP 11/12/2022 GENERAL: pleasant, female in no apparent distress PELVIC & GROIN: external genitalia normal but with erythematous macular rash that extends to inner right thigh (rash is more circumscribed here) ASSESSMENT AND PLAN: 21yo female with vulvar & groin rash Discussed R/B/A of evaluation & treatment options. Will proceed with nystatin & kenlog ointment for possible yeast &/or irritation dermatitis. Discussed possible eczema or other dermatologic process. Reviewed perineal hygiene. Follow up in 2 weeks and will proceed with groin/vulvar biopsy if not resolved. Discussed R/B/A of control options and patient would consider Nuvaring in the future. STD labs ordered Urine culture for dysuris Medical Decision Making: Problems: Moderate: New problem with uncertain prognosis Data: Unique test(s) ordered: 3+ Risk: Moderate: Drug management Medical Decision Making Level: 4 - Moderate Juan Ramon Huang MD documented in this encounter [facility] 08-26-2022 Miscellaneous Notes Noted. Thank you, Angle Britton APRN.PORSCHE Please see message that I sent to pt with response from Jen macias. Lesly Scott LPN Please see pt's mychart message and advise. Lesly Scott LPN documented in this encounter [facility] 08-26-2022 Miscellaneous Notes Please see pt's mychart message and response I was given by provider. Lesly Scott LPN Can you call [facility] and get a little bit more information for us? Do they have the same dosage in a different generic or is that the only one they carry that the only one they carry? Angle Britton APRN.PORSCHE Pt called and stated that her pharmacy contacted her and told her that she needed to contact our office as the Sprintec she is taking needs to be stopped immediately and she would need a prescription for another OCP as the company cannot speak to the quality of the medication. Pt will send [employer] message with copy of the message that she received. Please advise how to proceed from here. Lesly Scott LPN documented in this encounter [facility] 07-27-2022 History of Presen t illness Narrative Radiology Service Progress Note PATIENT NAME: Jamil Renee DATE OF SERVICE: July 27, 2022 TIME: 8:33 AM PATIENT IDENTITY VERIFICATION COMPLETED USING TWO (2) IDENTIFIERS: Name and Date of confirmed by patient verbally. FALL SCREENING: Has the patient had 2 falls in the last year or 1 fall with injury or currently using an Ambulatory Assistive Device (Walker, Cane, Wheelchair, Crutches, etc.)? No PATIENT GENDER DATA: Female. status: : No status: NO. 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 Patient reports really painful cramps during menses and she has to miss work. Also she feels dizzy that first 2 days. She uses midol & heating pads. This started in the past year. Menses: cycles every 28-30 days and 7 days of flow. Contraception: none HPV vaccine: Yes Last Pap: 03/12/2020 normal HPV: N/A History of abnormal pap: No Last mammogram: never 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 Operator History LMP: 03/25/2021 (Exact Date), Having periods Age at Menarche: Age at First : Age at Menopause: Long Distance Operator History Comments: Sexual Activity: Yes; Male Contraception: Pill PAST MEDICAL HISTORY Diagnosis Date Herpes simplex 08/23/2016 Menarche 10/24/12 Migraine without aura PMH - PAST MEDICAL HISTORY OF 11/25 normal color vision Rheumatoid arthritis (HCC) Rheumatology PAST SURGICAL HISTORY Procedure Laterality Date TONSILLECTOMY & ADENOIDECTOMY <AGE 10 FAMILY HISTORY Problem Relation Age of Onset Heart Father irregular heart beat Hypertension Paternal Grandfather Diabetes Paternal Grandfather Hypertension Maternal Grandmother Heart Maternal Grandmother SOCIAL HISTORY Social History Tobacco Use Smoking status: Never Smokeless tobacco: Never Vaping Use Vaping Use: Never used Substance Use Topics Alcohol use: Yes Drug use: No REVIEW OF SYSTEMS Abdomen: No abdominal pain, nausea, vomiting, diarrhea, or constipation. No bloating, early satiety, indigestion, or increased flatulence. Bladder: No gross hematuria, urinary frequency, urinary urgency, or incontinence. Breast: No breast lumps, nipple d/c, overlying skin changes, redness or skin retraction. Allergies and current medication updated:Yes EXAM: LMP 03/25/2021 GENERAL: pleasant, female in no apparent distress BREAST: soft, non-tender, symmetric, no dominant mass, normal nipple-areolar complex, no lymphadenopathy, and no nipple discharge CHEST: Normal inspiratory effort ABDOMEN: soft, non-tender, and no masses PELVIC: external genitalia normal, normal Bartholin's glands, urethra, [place]'s glands, no vulvar lesions, no cervical lesions, good vaginal support, physiologic discharge present, normal appearing perineal body and perianal region BIMANUAL: uterus normal size, shape and consistency, no adnexal masses, and mildly tender d/t pelvic floor tension RECTOVAGINAL: deferred. NEURO: alert and oriented x3,exam grossly non-focal EXTREMITIES: normal ASSESSMENT/PLAN: 1) Health maintenance: Pap done with reflex HPV. Nutrition, exercise and routine health maintenance exams reviewed. HPV vaccine: completed series 2) Contraception: combined hormonal contraceptives. Contraceptive options reviewed and information provided. 3) STD screening: Accepted STD check for Gonorrhea and Chlamydia with trich. 4) Follow up one year or sooner as needed 5) Pelvic floor tension - consult to pelvic floor PT 6) Dysmenorrhea - check pelvic US & start ocps - discussed R/B/ & use 7) Dysuria - check urine culture Juan Ramon Huang MD documented in this encounter [facility] 03-28-2022 Instructions Ashley Torres APRN.PORSCHE - 03/28/2022 3:23 PM EST Start zpack, take with food. May continue with over the counter cold and cough medication as needed for symptom management. [employer] works for sinus congestions, drink plenty of fluids. Keep dental appointment. Follow up as needed. Establish Care with provider in family medicine. documented in this encounter [facility] 03-28-2022 History of Presen t illness Narrative This is a 21 year old female who presents today with: Patient presents with: Acute Visit: sinus infection HISTORY OF PRESENT ILLNESS: Jamil Renee is a 21 year old female. Patient presents with: Acute Visit: sinus infection Here in the office for concerns for sinus infection. Had sinus congestion, fever, myalgias, and headache that started last Monday. Fever of 102 last Monday. No fever since Monday. Still having ongoing sinus fullness, sore throat, green sinus drainage, productive cough. Has notice some tooth pain, has dental appointment tomorrow. No SOB or difficulty breathing. Taking Mucinex and OTC cold medications. PAST MEDICAL HISTORY: PAST MEDICAL HISTORY Diagnosis Date Herpes simplex 08/23/2016 Menarche 10/24/12 Migraine without aura PMH - PAST MEDICAL HISTORY OF 11/25 normal color vision Rheumatoid arthritis (HCC) Rheumatology PAST SURGICAL HISTORY Procedure Laterality Date REMOVE TONSILS/ADENOIDS,<12 Y/O ALLERGIES Environmental [Other] and Penicillins MEDICATIONS No current outpatient medications on file. No current facility-administered medications for this visit. FAMILY HISTORY Problem Relation Age of Onset Heart Father irregular heart beat Hypertension Paternal Grandfather Diabetes Paternal Grandfather Hypertension Maternal Grandmother Heart Maternal Grandmother Social History Tobacco Use Smoking status: Never Smokeless tobacco: Never Vaping Use Vaping Use: Never used Substance Use Topics Alcohol use: Yes Drug use: No REVIEW OF SYSTEMS GENERAL: No weight loss, malaise or fevers/chills HEENT: + Sinus congestion, sore throat NECK: Negative for lumps, goiter, pain and significant neck swelling RESPIRATORY: + Cough CARDIOVASCULAR: Negative for chest pain, leg swelling, orthopnea, or palpitations GI: No nausea, vomiting, or diarrhea/constipation. No hematochezia/melena. No heartburn or reflux symptoms. : No history of dysuria, frequency or incontinence MUSCULOSKELETAL: Negative for joint pain or swelling. SKIN: Negative for lesions, rash, and itching ENDOCRINE: Negative for cold or heat intolerance, polyuria, polydipsia and goiter NEURO: No history of headaches, syncope, paralysis, seizures or tremors MOOD: Negative for depression, anxiety, or suicidal ideation. EXAM: BP 100/80 Pulse 100 Resp 16 Wt 92.1 kg (203 lb) LMP 03/25/2021 (Exact Date) BMI 30.42 kg/m PHYSICAL EXAM: General Appearance: Well appearing, alert, in no acute distress, well-hydrated, well nourished. Skin: Skin color, texture, turgor normal, no suspicious rashes or lesions. Head: Normocephalic, no masses, lesions, tenderness or abnormalities. Eyes: Anicteric sclera. Extraocular movements are intact. Ears: External ears normal, canals clear. TM's pearly truong. Nose/Sinuses: + Frontal and maxillary tenderness with palpation. Oropharynx: Lips, mucosa, and tongue normal, teeth and gums normal, oropharynx normal. Neck: Supple, no adenopathy; thyroid symmetric, normal size, no bruits. Lungs: Lungs clear to auscultation. No wheezing, rhonchi, rales. Heart: RRR without murmur, gallop, or rubs. No ectopy. Extremities: No deformities, edema, skin discoloration, clubbing or cyanosis. Good capillary refill. Peripheral Pulses: Normal, Capillary refill <2secs, strong peripheral pulses, Pulses palpable. Neurologic: Gait normal. Sensation grossly intact. ASSESSMENT/PLAN: 1. Bacterial sinusitis - ICD9: 473.9, 041.9, ICD10: J32.9, B96.89 - Will begin treatment with Zithromax pack as directed - Supportive care with plenty of fluids, rest, and analgesia prn. Follow-up as needed or sooner if symptoms get worse or do not improve. Discussed treatment plan and patient voices understanding. Patient's questions answered appropriately. Medications and potential side effects were discussed and patient voices understanding. Ashley Torres APRN.PORSCHE This note was partially generated using [employer] voice recognition system. Note was reviewed for accuracy. There may be minor misspellings or grammar miscues with [employer] voice recognition. documented in this encounter [facility] 11-21-2020 History of Presen t illness Narrative Radiology Service Progress Note PATIENT NAME: Jamil Renee DATE OF SERVICE: November 21, 2020 TIME: 9:43 AM PATIENT IDENTITY VERIFICATION COMPLETED USING TWO (2) IDENTIFIERS: Name and Date of confirmed by patient verbally. FALL SCREENING: Has the patient had 2 falls in the last year or 1 fall with injury or currently using an Ambulatory Assistive Device (Walker, Cane, Wheelchair, Crutches, etc.)? No PATIENT GENDER DATA: Female. status: : No status: NO. PATIENT RELEVANT IMPLANT DATA REVIEWED: Not Applicable RADIOLOGY DEPARTMENT: General X-ray: Exam(s) Completed: Chest X-Ray PERIPHERAL IV DATA: Not applicable SIGNED BY: RT Kellie(R) November 21, 2020 9:43 AM documented in this encounter [facility] Evaluation note Diagnosis Bacterial sinusitis- Primary Unspecified sinusitis (chronic) [facility] Diagnosis Encounter for gynecological examination without abnormal finding- Primary Routine gynecological examination Encounter for screening for malignant neoplasm of cervix Screening for malignant neoplasm of the cervix Screen for STD (sexually transmitted disease) Screening examination for venereal disease Dysmenorrhea Dysuria Pelvic floor tension [facility] Vulvar rash- Primary Rash and other nonspecific skin eruption Dysuria Screen for STD (sexually transmitted disease) Screening examination for venereal disease [facility] Diagnosis Skin rash- Primary Rash and other nonspecific skin eruption [facility] Diagnosis Dysmenorrhea [facility] Diagnosis Viral URI- Primary Acute upper respiratory infections of unspecified site [facility] Diagnosis Encounter for gynecological examination (general) (routine) without abnormal findings- Primary Counseling for control regarding intrauterine device (IUD) Screen for STD (sexually transmitted disease) Screening examination for venereal disease [facility] Diagnosis Viral URI- Primary Acute upper respiratory infections of unspecified site [facility]* Diagnosis Irregular menses- Primary Irregular menstrual cycle Encounter for IUD insertion Encounter for insertion of intrauterine contraceptive device [facility]* Diagnosis Irregular menses- Primary Irregular menstrual cycle [facility]* Diagnosis Irregular menses- Primary Irregular menstrual cycle [facility]* Diagnosis Screen for STD (sexually transmitted disease)- Primary Screening examination for venereal disease Vaginal irritation Unspecified noninflammatory disorder of vagina * Assessment & Plan Note - Juan Ramon Huang MD - 07/19/2024 4:27 PM EDTAssociated Problem(s): Vaginal irritation (Resolved 07/19/2024) documented in this encounter [facility] note* Diagnosis Pain- Primary Generalized pain Pain Generalized pain documented in this encounter [facility] note* Diagnosis Pain Generalized pain documented in this encounter [facility] note* Diagnosis Neck pain- Primary Cervicalgia Myofascial pain Mylagia and myositis, unspecified documented in this encounter [facility] note* Diagnosis Nausea and vomiting, unspecified vomiting type- Primary Acute gastroenteritis Other and unspecified noninfectious gastroenteritis and colitis documented in this encounter [facility] note* Diagnosis Vomiting and diarrhea- Primary Vomiting alone documented in this encounter [facility] note* Diagnosis Nausea vomiting and diarrhea- Primary Diarrhea Failure of outpatient treatment Lightheadedness Dizziness and giddiness Gastroenteritis due to norovirus Enteritis due to Burn[place] virus Dehydration documented in this encounter [facility] for referral (narrative)* Diagnostic Procedure Only (Routine) - Closed Specialty Diagnoses / Procedures Referred By Contac t Referred To Contact [facility] Diagnoses Dysmenorrhea Procedures US FEMALE PELVIS TRANSABD LTD US PELVIC NONOBSTETRIC IMAGE D[facility] LIMITED/F/U Juan Ramon Huang MD [address] [place] [id number] [id number] Referral ID Status Reason Start Date Expiration Date V isits Requested Visits Authorized [id number] Closed Auto-Generate d Referral 07/12/2022 08/11/2023 1 1 * Diagnostic Procedure Only (Routine) - Closed Specialty Diagnoses / Procedures Referred By Contac t Referred To Contact [facility] Diagnoses Dysmenorrhea Procedures US FEMALE PELVIS TRANSVAG US TRANSVAGINAL Juan Ramon Huang MD [address] [place] [address] [place] [address] Referral ID Status Reason Start Date Expiration Date V isits Requested Visits Authorized [id number] Closed Auto-Generate d Referral 07/12/2022 08/11/2023 1 1 [facility] for referral (narrative)* Outpatient Procedure (Routine) - New Request Specialty Diagnoses / Procedures Referred By Contac t Referred To Contact [facility] Diagnoses Counseling for control regarding intrauterine device (IUD) Procedures INSERT INTRAUTERINE DEVICE LEVONORGESTREL IU 52MG 5 YR INSERT INTRAUTERINE DEVICE Juan Ramon Huang MD [address] [place] [address] [address] Referral ID Status Reason Start Date Expiration Date Visits Requested Visits Authorized [id number] New Request Auto-Generat ed Referral 12/28/2023 12/27/2024 1 1 [facility] for referral (narrative)* Outpatient Procedure (Routine) - Authorized Specialty Diagnoses / Procedures Referred By Kush t Referred To Contact [facility] Diagnoses Encounter for IUD insertion Procedures INSERT INTRAUTERINE DEVICE INTRAUT COPPER CONTRACEPTIVE INSERT INTRAUTERINE DEVICE Melissa Amador MD [address] [place] [phone] [facility] [address] [place] [address] Referral ID Status Reason Start Date Expiration Date Visits Requested Visits Authorized [id number] Authorized Auto-Generat ed Referral 04/15/2025 1 1 [facility] for visit Narrative* Diagnostic Procedure Only (Urgent) - Pending Review Specialty Diagnoses / Procedures Referred By Contac t Referred To Contact [facility] Diagnoses Pain Procedures XR CERV OTHER 4V AP/LAT/OBL RADEX SPINE CERVICAL 4 OR 5 VIEWS Edward Huang, [employer] BENEFITS MANAGER [address] [place] [address] Phone: tel: fax: [place] [address] Referral ID Status Reason Start Date Expiration Date Visits Requested Visits Authorized [id number] Pending Review Auto-Generat ed Referral 08/06/2024 09/05/2025 1 1 [facility] Summary Purpose Family History No Family History Records FoundNo Family History Records Found Advance Directives No Advanced Directives Records FoundNo Advanced Directives Records Found Reason for Referral Specialty Diagnoses / Procedures Referred By Contac t Referred To Contact [facility] Diagnoses Pelvic floor tension Procedures CONSULT TO PHYSICAL THERAPY PHYSICAL THERAPY EVALUATION HIGH COMPLEX 45 MINS Juan Ramon Huang MD [address] [place] [address] [facility] [address] [place] [address] Referral ID Status Reason Start Date Expiration Date Visits Requested Visits Authorized [id number] Pending Review Auto-Generat ed Referral 07/12/2022 07/12/2023 1 1 Specialty Diagnoses / Procedures Referred By Contac t Referred To Contact [facility] Diagnoses Dysmenorrhea Procedures US FEMALE PELVIS TRANSABD LTD US PELVIC NONOBSTETRIC IMAGE [facility] LIMITED/F/U Juan Ramon Huang MD [address] [place] [address] Us Imaging Referral ID Status Reason Start Date Expiration Date Visits Requested Visits Authorized [id number] Authorized Auto-Generat ed Referral 07/12/2022 08/11/2023 1 1 Specialty Diagnoses / Procedures Referred By Contac t Referred To Contact [facility] Diagnoses Dysmenorrhea Procedures US FEMALE PELVIS TRANSVAG US TRANSVAGINAL Juan Ramon Huang MD [address] [place] [address] Us Imaging Referral ID Status Reason Start Date Expiration Date Visits Requested Visits Authorized [id number] Authorized Auto-Generat ed Referral 07/12/2022 08/11/2023 1 1 Additional Source Comments INFORMATION SOURCE (unrecogn ized section and content) DATE CREATED AUTHOR 05/23/2021 [facility] DATE CREATED AUTHOR AUTHOR'S ORGANIZ ATION 11/10/2024 [facility] Source Comments (unrecognize d section and content) In the event this informatio n is protected by the Federal Confidentiality of Alcohol and Drug Abuse Patient Records regulations: The Federal rules restrict any use of the information to criminally investigate or prosecute any alcohol or drug abuse patient.[facility] the event this information is protected by the Federal Confidentiality of Alcohol and Drug Abuse Patient Records regulations: The Federal rules restrict any use of the information to criminally investigate or prosecute any alcohol or drug abuse patient.[facility] the event this information is protected by the Federal Confidentiality of Alcohol and Drug Abuse Patient Records regulations: The Federal rules restrict any use of the information to criminally investigate or prosecute any alcohol or drug abuse patient.[facility] the event this information is protected by the Federal Confidentiality of Alcohol and Drug Abuse Patient Records regulations: The Federal rules restrict any use of the information to criminally investigate or prosecute any alcohol or drug abuse patient.[facility] HealthIn the event this information is protected by the Federal Confidentiality of Alcohol and Drug Abuse Patient Records regulations: The Federal rules restrict any use of the information to criminally investigate or prosecute any alcohol or drug abuse patient.[facility] the event this information is protected by the Federal Confidentiality of Alcohol and Drug Abuse Patient Records regulations: The Federal rules restrict any use of the information to criminally investigate or prosecute any alcohol or drug abuse patient.[facility]In the event this information is protected by the Federal Confidentiality of Alcohol and Drug Abuse Patient Records regulations: The Federal rules restrict any use of the information to criminally investigate or prosecute any alcohol or drug abuse patient.[facility] the event this information is protected by the Federal Confidentiality of Alcohol and Drug Abuse Patient Records regulations: The Federal rules restrict any use of the information to criminally investigate or prosecute any alcohol or drug abuse patient.[facility] HealthIn the event this information is protected by the Federal Confidentiality of Alcohol and Drug Abuse Patient Records regulations: The Federal rules restrict any use of the information to criminally investigate or prosecute any alcohol or drug abuse patient.[facility]In the event this information is protected by the Federal Confidentiality of Alcohol and Drug Abuse Patient Records regulations: The Federal rules restrict any use of the information to criminally investigate or prosecute any alcohol or drug abuse patient.[facility] HealthIn the event this information is protected by the Federal Confidentiality of Alcohol and Drug Abuse Patient Records regulations: The Federal rules restrict any use of the information to criminally investigate or prosecute any alcohol or drug abuse patient.[facility] HealthIn the event this information is protected by the Federal Confidentiality of Alcohol and Drug Abuse Patient Records regulations: The Federal rules restrict any use of the information to criminally investigate or prosecute any alcohol or drug abuse patient.[facility] HealthIn the event this information is protected by the Federal Confidentiality of Alcohol and Drug Abuse Patient Records regulations: The Federal rules restrict any use of the information to criminally investigate or prosecute any alcohol or drug abuse patient.[facility] HealthIn the event this information is protected by the Federal Confidentiality of Alcohol and Drug Abuse Patient Records regulations: The Federal rules restrict any use of the information to criminally investigate or prosecute any alcohol or drug abuse patient.[facility] HealthIn the event this information is protected by the Federal Confidentiality of Alcohol and Drug Abuse Patient Records regulations: The Federal rules restrict any use of the information to criminally investigate or prosecute any alcohol or drug abuse patient.[facility] HealthIn the event this information is protected by the Federal Confidentiality of Alcohol and Drug Abuse Patient Records regulations: The Federal rules restrict any use of the information to criminally investigate or prosecute any alcohol or drug abuse patient.[facility] HealthIn the event this information is protected by the Federal Confidentiality of Alcohol and Drug Abuse Patient Records regulations: The Federal rules restrict any use of the information to criminally investigate or prosecute any alcohol or drug abuse patient.[facility] HealthIn the event this information is protected by the Federal Confidentiality of Alcohol and Drug Abuse Patient Records regulations: The Federal rules restrict any use of the information to criminally investigate or prosecute any alcohol or drug abuse patient.[facility] HealthIn the event this information is protected by the Federal Confidentiality of Alcohol and Drug Abuse Patient Records regulations: The Federal rules restrict any use of the information to criminally investigate or prosecute any alcohol or drug abuse patient.[facility] HealthIn the event this information is protected by the Federal Confidentiality of Alcohol and Drug Abuse Patient Records regulations: The Federal rules restrict any use of the information to criminally investigate or prosecute any alcohol or drug abuse patient.[facility] HealthIn the event this information is protected by the Federal Confidentiality of Alcohol and Drug Abuse Patient Records regulations: The Federal rules restrict any use of the information to criminally investigate or prosecute any alcohol or drug abuse patient.[facility] HealthIn the event this information is protected by the Federal Confidentiality of Alcohol and Drug Abuse Patient Records regulations: The Federal rules restrict any use of the information to criminally investigate or prosecute any alcohol or drug abuse patient.[facility] HealthIn the event this information is protected by the Federal Confidentiality of Alcohol and Drug Abuse Patient Records regulations: The Federal rules restrict any use of the information to criminally investigate or prosecute any alcohol or drug abuse patient.[facility] HealthIn the event this information is protected by the Federal Confidentiality of Alcohol and Drug Abuse Patient Records regulations: The Federal rules restrict any use of the information to criminally investigate or prosecute any alcohol or drug abuse patient.[facility] HealthIn the event this information is protected by the Federal Confidentiality of Alcohol and Drug Abuse Patient Records regulations: The Federal rules restrict any use of the information to criminally investigate or prosecute any alcohol or drug abuse patient.[facility] Reason for Visit (unrecogniz ed section and content) Reason Comments Acute Visit sinus infection Reason Onset Date Comments Yearly Exam 07/12/2022 Reason Comments Patient Question Reason Comments Follow Up control questi ons Reason Comments Radiology US Specialty Diagnoses / Procedures Referred By Contac t Referred To Contact [facility] Diagnoses Dysmenorrhea Procedures US FEMALE PELVIS TRANSVAG US TRANSVAGINAL Juan Ramon Huang MD [address] [place] [address] [place] [address] Referral ID Status Reason Start Date Expiration Date V isits Requested Visits Authorized [id number] Closed Auto-Generate d Referral 07/12/2022 08/11/2023 1 1 Reason Comments Cough Cough, congestion, f ever, CRUZ and bodyaches x 3 days Reason Comments Well Woman Reason Comments Sinus Problem Sinus, congestion an d CRUZ x 2 days Reason Comments Menstrual Problem Reason Comments Results Reason Comments Patient Request Reason Comments Problem Visit Reason Comments Back Pain Upper back pain for a ling time but worse today Reason Comments New Patient Neck Pain Back Pain (Upper Back) Pain (Shoulder Pain) Both Specialty Diagnoses / Procedures Referred By Contac t Referred To Contact [facility] Diagnoses Pain Procedures CONSULT TO [facility] OFFICE/OUTPATIENT NEW HIGH MDM 60 MINUTES Edward Huang APRN.HUMAN RESOURCES BENEFITS MANAGER [address] [place] [address] Phone: tel: fax: Referral ID Status Reason Start Date Expiration Date V isits Requested Visits Authorized [id number] Closed PCP Requested Referral 08/06/2024 08/06/2025 1 1 Reason Comments Vomiting Fever, chills Reason Comments Vomiting Vomiting and diarrhe a x 3 days Reason Comments Nausea & Vomiting X 1.5 weeks Care Teams (unrecognized sec tion and content) [employer] Relationship Specialty Start Date End Date Reynold Doll MD [address] [place], [place] [phone] PCP - General Family Medicine 03/28/22 03/28/22 [employer] Relationship Specialty Start Date End Date Blaine Aguilar MD [address] [place], [place] [phone] PCP - General 02/14/02 12/28/20 FOR RECORDS PERTAINING TO PATIENTS WHO ARE OR HAVE BEEN ENROLLED IN A CHEMICAL DEPENDENCY/SUBSTANCEABUSE PROGRAM, SOME INFORMATION MAY BE OMITTED. This clinical summary was aggregated from multiple sources. Caution should be exercised in using it in the provision of clinical care. This summary normalizes information from multiple sources, and as a consequence, information in this document may materially change the coding, format and clinical context of patient data. In addition, data may be omitted in some cases. CLINICAL DECISIONS SHOULD BE BASED ON THE PRIMARY CLINICAL RECORDS. [facility] [employer] [facility]. provides no warranty or guarantee of the accuracy or completeness of information in this document.
[2024-11-14 05:14] LABS: Internal QC Validated? YES +Cl - CLEAR BKGD; Pregnancy, Serum, hCG Quali. NEGATIVE Negative; Record Kit Lot#, Serum Preg. 0000962302
[2024-11-14 05:31] LABS: Anion Gap 11 (5-15); BUN 13 mg/dL (4-19); BUN/Creat Ratio 19.1 RATIO (10-20); Calcium,Total 9.0 mg/dL (7.6-11.0); Carbon Dioxide 24.9 mmol/L (21.0-32.0); Chloride 104 mmol/L (98-108); Estimated Creatinine Clearance 154.52 ml/min (50-250); Glucose 94 mg/dL (70-99); Magnesium 1.9 mg/dL (1.5-2.2); Potassium 4.0 mmol/L (3.3-5.1)
[2024-11-14 05:45] VITALS: BP 106/77; PULSE 72; RESP 16; TEMP 36.9; O2SAT 100
== END 2024-11-14 05:50 | disposition home or self-care (01) ==
PROVIDERS: Emergency Provider Emergency Medicine; Visit Provider Emergency Medicine
DX: E86.0 Dehydration (principal); F41.9 Anxiety disorder, unspecified; R53.83 Other fatigue
CPT/HCPCS: 80048; 83735; 84443; 84703; 85025; 96360; 99282; A4216